=== PATIENT | female | born 1955 | race Caucasian/White ===

== ENCOUNTER 2020-11-25 09:25 | Outpatient (REF) | payer OTHER, SELFPAY ==
[2020-11-25 12:53] LABS: Alanine Aminotransferase 34 U/L (0-31); Albumin Level 4.1 g/dL (3.5-5.0); Alkaline Phosphatase 72 U/L (39-117); Anion Gap 13 (12-20); Aspartate Amino Transferase 32 U/L (5-31); Bilirubin Total 0.7 mg/dL (0.0-1.0); Blood Urea Nitrogen 12 mg/dL (9-16); Calcium 8.8 mg/dL (8.4-10.2); Carbon Dioxide 27 mmol/L (22-29); Chloride 105 mmol/L (96-108); Cholesterol 200 mg/dL; Estimated Glomerular Filt Rate > 60; Glucose Fasting 92 mg/dL (60-99); HDL Cholesterol 74 mg/dL; LDL Cholesterol Calculated 109 mg/dl; Sodium 141 mmol/L (135-145); Total Protein 6.8 g/dL (6.5-8.0); Triglycerides 86 mg/dL
[2020-11-25 13:20] LABS: Vitamin D 25-OH Total 25.5 ng/mL (>30)
== END 2020-11-25 09:26 | disposition home or self-care (01) ==
LOC: HO.HMGCLDS 09:25
PROVIDERS: PCP Internal Medicine; Visit Provider Internal Medicine
DX: I10 Essential (primary) hypertension (principal); E78.5 Hyperlipidemia, unspecified; M70.60 Trochanteric bursitis, unspecified hip
CPT/HCPCS: 36415; 80053; 80061; 82306

== ENCOUNTER 2021-01-27 08:46 | Outpatient (REF) | payer OTHER, SELFPAY ==
[2021-01-27 11:37] LABS: Alanine Aminotransferase 17 U/L (0-31); Albumin Level 4.3 g/dL (3.5-5.0); Alkaline Phosphatase 70 U/L (39-117); Anion Gap 11 (12-20); Aspartate Amino Transferase 18 U/L (5-31); Bilirubin Total 0.8 mg/dL (0.0-1.0); Blood Urea Nitrogen 12 mg/dL (9-16); Carbon Dioxide 28 mmol/L (22-29); Chloride 107 mmol/L (96-108); Cholesterol 235 mg/dL; Estimated Glomerular Filt Rate > 60; Glucose Fasting 91 mg/dL (60-99); HDL Cholesterol 75 mg/dL; LDL Cholesterol Calculated 136 mg/dl; Potassium 4.7 mmol/L (3.3-5.1); Sodium 141 mmol/L (135-145); Triglycerides 120 mg/dL
== END 2021-01-27 08:47 | disposition home or self-care (01) ==
LOC: HO.HMGCLDS 08:46
PROVIDERS: PCP Internal Medicine; Visit Provider Internal Medicine
DX: Z00.00 Encounter for general adult medical examination without abnormal findings (principal); E78.5 Hyperlipidemia, unspecified; I10 Essential (primary) hypertension
CPT/HCPCS: 36415; 80053; 80061

== ENCOUNTER 2021-08-04 08:44 | Outpatient (REF) | payer OTHER, SELFPAY ==
[2021-08-04 11:31] LABS: Hematocrit 45.1 % (37.0-47.0); Hemoglobin 14.9 g/dl (12.0-16.0); Mean Corpuscular Hemoglobin 30.1 pg (27.0-33.0); Mean Corpuscular Volume 91.1 fL (80.0-98.0); Platelet Count 169 X10*3/uL (160-400); Red Blood Count 4.95 X10*6/uL (4.20-5.50); Red Cell Distribution Width 12.5 % (11.0-16.0); White Blood Count 4.8 X10*3/uL (4.8-10.8)
[2021-08-04 11:57] LABS: Alanine Aminotransferase 25 U/L (0-31); Albumin Level 4.1 g/dL (3.5-5.0); Alkaline Phosphatase 73 U/L (39-117); Anion Gap 11 (12-20); Aspartate Amino Transferase 22 U/L (5-31); Bilirubin Total 0.5 mg/dL (0.0-1.0); Blood Urea Nitrogen 15 mg/dL (9-16); Calcium 9.4 mg/dL (8.4-10.2); Carbon Dioxide 27 mmol/L (22-29); Chloride 106 mmol/L (96-108); Cholesterol 234 mg/dL; Estimated Glomerular Filt Rate > 60; Glucose Fasting 97 mg/dL (60-99); HDL Cholesterol 78 mg/dL; LDL Cholesterol Calculated 138 mg/dl; Potassium 4.1 mmol/L (3.3-5.1); Sodium 140 mmol/L (135-145); Total Protein 7.2 g/dL (6.5-8.0); Triglycerides 92 mg/dL
[2021-08-04 12:32] LABS: TSH reflex Free T4 2.05 uIU/mL (0.32-4.0); Vitamin D 25-OH Total 21.7 ng/mL (>30)
== END 2021-08-04 08:45 | disposition home or self-care (01) ==
LOC: HO.HMGCLDS 08:44
PROVIDERS: PCP Internal Medicine; Visit Provider Internal Medicine
DX: Z00.00 Encounter for general adult medical examination without abnormal findings (principal); E78.5 Hyperlipidemia, unspecified; I10 Essential (primary) hypertension
CPT/HCPCS: 36415; 80053; 80061; 82306; 84443; 85027

== ENCOUNTER 2022-01-31 08:16 | Outpatient (REF) | payer OTHER, SELFPAY ==
[2022-01-31 11:37] LABS: Alanine Aminotransferase 20 U/L (0-31); Albumin Level 4.2 g/dL (3.5-5.0); Alkaline Phosphatase 67 U/L (39-117); Anion Gap 9 (12-20); Aspartate Amino Transferase 17 U/L (5-31); Bilirubin Total 0.4 mg/dL (0.0-1.0); Blood Urea Nitrogen 14 mg/dL (9-16); Carbon Dioxide 27 mmol/L (22-29); Chloride 109 mmol/L (96-108); Cholesterol 175 mg/dL; Estimated Glomerular Filt Rate > 60; Glucose Fasting 109 mg/dL (60-99); HDL Cholesterol 66 mg/dL; LDL Cholesterol Calculated 96 mg/dl; Potassium 4.1 mmol/L (3.3-5.1); Sodium 141 mmol/L (135-145); Total Protein 6.9 g/dL (6.5-8.0); Triglycerides 65 mg/dL
[2022-01-31 11:59] LABS: Vitamin D 25-OH Total 24.5 ng/mL (>30)
== END 2022-01-31 08:17 | disposition home or self-care (01) ==
LOC: HO.HMGCLDS 08:16
PROVIDERS: PCP Internal Medicine; Visit Provider Internal Medicine
DX: E55.9 Vitamin D deficiency, unspecified (principal); E78.5 Hyperlipidemia, unspecified
CPT/HCPCS: 36415; 80053; 80061; 82306

== ENCOUNTER 2022-04-14 07:42 | Outpatient (REF) | payer OTHER, SELFPAY ==
[2022-04-14 07:48] VITALS: BP 178/96; PULSE 91; RESP 16; TEMP 36.3; O2SAT 99
[2022-04-14 07:52] VITALS: BMI 29.6
--- NOTE | 2022-04-14 08:34 | W.PM.OPN ---
Operative Note Operative Note Date of Service: 04/14/22 Narrative: Preoperative diagnosis: Pilar cysts frontal scalp Postoperative diagnosis: Pilar cyst frontal scalp Procedure: Excision Pilar cyst frontal scalp Surgeon: Foster Arita MD Media Production Support Manager: SAMUEL Atkins Anesthesia: Local lidocaine 1% with epinephrine Indications for procedure: 1.5 cm Pilar cyst frontal scalp Operative findings: 1.5 cm Pilar cyst frontal scalp Specimen: Pilar cyst frontal scalp Estimated blood loss: Less than 1 mL Complications: None Procedure details: Patient brought to the minor surgery suite and placed in a sitting position. The site of surgery was confirmed by the patient in the frontal scalp. After assuring informed consent, the skin was prepped with Betadine and draped in a sterile fashion. Local anesthesia was then infiltrated over the cyst. Incision was made with a scalpel from anterior to posterior in carried down through subcutaneous tissue up to the cyst wall. Blunt dissection with a hemostat was then used to dissect the cyst from the surrounding subcutaneous tissue. The lesion was completely removed and sent to pathology for further examination. Light pressure was held to maintain hemostasis. Skin was then closed using interrupted 3-0 Prolene sutures x2. Bacitracin was applied. The patient tolerated the procedure well. She was discharged to home in stable condition.
== END 2022-04-14 07:43 | disposition home or self-care (01) ==
LOC: HO.MS 07:42
PROVIDERS: PCP Internal Medicine; Visit Provider Surgery
PROC: (CPT 11422; principal; 2022-04-14 08:00)
DX: L72.11 Pilar cyst (principal)
CPT/HCPCS: 11422; 88304

== ENCOUNTER 2022-05-25 11:07 | Outpatient (REF) | payer OTHER, SELFPAY ==
[2022-05-25 14:12] LABS: MANUAL DIFF FLAG NO
[2022-05-25 14:14] LABS: Basophils Percent Auto 0.3 % (0-2); Eosinophils Absolute Auto 0.2 X10*3/uL (0.0-0.4); Eosinophils Percent Auto 2.7 % (0-4); Hematocrit 47.4 % (37.0-47.0); Hemoglobin 15.3 g/dl (12.0-16.0); Imm Gran Abs Auto 0.03 X10*3/uL (0.00-0.03); Imm Gran Pct Auto 0.4 % (0.0-0.4); Lymphocytes Absolute Auto 2.1 X10*3/uL (1.2-4.9); Lymphocytes Percent Auto 29.4 % (20-40); Mean Corpuscular HGB Conc 32.3 g/dl (31.0-35.0); Mean Corpuscular Hemoglobin 29.4 pg (27.0-33.0); Mean Platelet Volume 11.3 fL (9.4-12.3); Monocytes Absolute Auto 0.6 X10*3/uL (0.1-1.2); Monocytes Percent Auto 8.2 % (2-11); Neutrophils Absolute Auto 4.2 x10*3/uL (2.0-8.3); Platelet Count 192 X10*3/uL (160-400); Red Blood Count 5.21 X10*6/uL (4.20-5.50); Red Cell Distribution Width 12.3 % (11.0-16.0); White Blood Count 7.1 X10*3/uL (4.8-10.8)
[2022-05-25 14:30] LABS: Alanine Aminotransferase 20 U/L (0-31); Albumin Level 4.4 g/dL (3.5-5.0); Alkaline Phosphatase 77 U/L (39-117); Anion Gap 12 (12-20); Aspartate Amino Transferase 21 U/L (5-31); Bilirubin Total 0.7 mg/dL (0.0-1.0); Blood Urea Nitrogen 12 mg/dL (9-16); Calcium 9.5 mg/dL (8.4-10.2); Carbon Dioxide 30 mmol/L (22-29); Chloride 103 mmol/L (96-108); Estimated Glomerular Filt Rate > 60; Glucose Fasting 84 mg/dL (60-99); Potassium 4.3 mmol/L (3.3-5.1); Sodium 141 mmol/L (135-145)
== END 2022-05-25 11:08 | disposition home or self-care (01) ==
LOC: HO.HMGCLDS 11:07
PROVIDERS: PCP Internal Medicine; Visit Provider Internal Medicine
DX: I10 Essential (primary) hypertension (principal)
CPT/HCPCS: 36415; 80053; 85025

== ENCOUNTER 2023-02-02 09:37 | Outpatient (AMB) | payer OTHER, SELFPAY ==
[2023-02-02 09:59] VITALS: BP 125/76; PULSE 80; O2SAT 97; BMI 29.5
--- NOTE | 2023-02-02 09:59 | A.OFFPC_ITS ---
Vital Signs 02/02/23 09:59 Height 5 ft 5 in Weight 177 lb BMI 29.5 BP 125/76 Blood Pressure Location Lt brachial Position Sitting Pulse 80 Pulse Source Pulse Oximeter Pulse Oximetry (%) 97 Oxygen Delivery Method Room Air Intake Visit Reasons: Annual PE Intake Note: Pt is here today for PE. Allergies No Known Allergies Allergy (Verified 02/02/23 10:09) Medication List - Last Reconciled 02/02/23 by Nilam Piper MD amlodipine 7.5 mg (1.5 x 5 mg) PO DAILY compr.stocking,knee,long,small As directed hydrochlorothiazide 25 mg PO DAILY naproxen 500 mg PO BID sertraline 25 mg PO DAILY Tobacco use date assessed: 02/02/23 Fall risk assessment: No Falls in past year Last assessed Fall Risk: 02/02/23 Dental Screening Dental Screen Date: 02/02/23 Did you have a dental visit in the last 12 months?: No Did you have a dental problem in the last 6 months where you did not have access to dental care?: No Was dental information given to patient?: Patient declined HPI Annual PE HPI Details Pt presents for PE. [facility] Medical History Annual physical exam HTN (hypertension) Hyperlipidemia Mammogram declined Pap smear of cervix declined Trochanteric bursitis Venous insufficiency Vitamin D deficiency Surgical History (Updated 02/02/23 @ 10:54 by Nilam Piper MD) H/O colonoscopy History of left oophorectomy History of removal of cyst (04/14/22) Family History Mother Stroke Father Hypertension Social History Housing: House Alcohol intake: never Patient Tobacco Use Status: Never used Tobacco e-Cigarette/Vaping Use: Never Used Second Hand Smoke Exposure: No service: No Current occupational status: employed 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 1. Little interest or pleasure in doing things: not at all 2. Feeling down, depressed, or hopeless: not at all 3. Trouble falling or staying asleep, or sleeping too much: not at all 4. Feeling tired or having little energy: not at all 5. Poor appetite or overeating: not at all 6. Feeling bad about yourself - or that you are a failure or have let yourself or your family down: not at all 7. Trouble concentrating on things, such as reading the newspaper or watching television: not at all 8. Moving or speaking so slowly that other people could have noticed. Or the opposite - being so fidgety or restless that you have been moving around a lot more than usual: not at all 9. Thoughts that you would be better off or of hurting yourself in some way: not at all Total score: 0 Depression Screening Interpretation: Negative Source: Developed by Drs. Adryan Rendon, Phyllis Jade, Naveen Diane and colleagues, with an educational sandy from [employer]. Thrive Questionnaire Date Thrive assessed: 02/02/23 I am a: Patient What is your living situation today?: I have a steady place to live Within the past 12 months, did the food you bought not last and you didn't have the money to get more?: Never true Within the past 12 months, did you worry whether your food would run out before you got money to buy more?: Never true Do you have trouble paying for medicines?: No Do you have trouble getting transportation to medical appointments?: No Do you have trouble paying your heating and electricity bill?: No Do you have trouble taking care of your child, family member or friend?: No Do you have trouble with day-to-day activities such as bathing, preparing meals, shopping, managing finances, etc.?: No Are you currently unemployed and looking for a job?: No Are you interested in more education?: No Please select the resources that you would like help with: None Currently or been in a relationship where the following occur: no concerns reported AUDIT C Alcohol Use Questionnaire (AUDIT-C) 1. How often do you have a drink containing alcohol?: Never 2. How many drinks containing alcohol do you have on a typical day when you are drinking?: 1 or 2 3. How often do you have six or more drinks on one occasion?: Never Total Score: 0 SUYAPA-7 AMB Questionnaire SUYAPA-7 Date SUYAPA - 7 assessed: 02/02/23 Feeling nervous, anxious, or on edge: 0 = Not at all Not being able to stop or control worryin = Not at all Worrying too much about different things: 0 = Not at all Trouble relaxin = Not at all Being so restless that it is hard to sit still: 0 = Not at all Becoming easily annoyed or irritable: 0 = Not at all Feeling afraid as if something awful might happen: 0 = Not at all Total SUYAPA-7 score (0-4 normal; 5-9 mild; 10-14 moderate; 15-21 severe): 0 Source: Developed by Drs. Adryan Rendon, Phyllis Jade, Naveen Diane and colleagues, with an educational sandy from [employer]. Review of Systems Const All systems reviewed & are unremarkable except as noted in HPI and below Reports no additional complaints Eyes Reports no additional complaints ENT Reports no additional complaints Card Reports no additional complaints Resp Reports no additional complaints GI Reports no additional complaints Reports no additional complaints Physical exam (Primary Care) Vital Signs: Last Vital Signs Pulse 80 02/02/23 09:59 BP 142/76 H 02/02/23 09:59 Pulse Ox 97 02/02/23 09:59 Oxygen Delivery Method Room Air 02/02/23 09:59 BMI result Body Mass Index 29.5 Tobacco/Smoking Status: Tobacco use Status Tobacco use date assessed 02/02/23 02/02/23 10:13 Patient Tobacco Use Status Never used Tobacco 02/02/23 10:13 e-Cigarette/Vaping Use Never Used 02/02/23 09:59 PHQ-9: PHQ-9 Score PHQ-9: Total score 0 02/02/23 10:13 Depression Screening Interpretation: Negative Thrive Assessment: Date of Thrive Assessment Date Thrive assessed 02/02/23 02/02/23 10:13 Currently or been in a relationship where the following occur: no concerns reported Const General: no acute distress HENMT Head: Yes normal to inspection Ears: hearing grossly normal bilaterally Face and sinus: Yes normal facial exam Throat: Yes posterior oropharynx normal Neck Neck: Yes no lymphadenopathy and Yes supple Resp Effort & Inspection: normal respiratory effort Auscultation: clear to auscultation bilaterally Cardio Rhythm: regular rhythm Heart sounds: S1 normal heart sound present and S2 normal heart sound present GI Inspection: Yes normal to inspection Palpation (GI): Soft to palpation Percussion: Yes normal to percussion Auscultation: normal bowel sounds Assessment and Plan Assessment & Plan (1) Hyperlipidemia: Comment: Patient refuses to take statin Code(s): E78.5 - Hyperlipidemia, unspecified Plan: cont low cholesterol diet (2) HTN (hypertension): Code(s): I10 - Essential (primary) hypertension Plan: cont meds (3) Mammogram declined: Code(s): Z53.20 - Procedure and treatment not carried out because of patient's decision for unspecified reasons (4) Anxiety: Code(s): F41.9 - Anxiety disorder, unspecified (5) Annual physical exam: Code(s): Z00.00 - Encounter for general adult medical examination without abnormal findings Plan: Well-balanced diet regular exercise discussed with the patient. She declined mammogram and Pap smear. Physical in 1 year (6) Pap smear of cervix declined: Code(s): Z53.20 - Procedure and treatment not carried out because of patient's decision for unspecified reasons (7) H/O colonoscopy: Comment: 2018 negative at [facility] Code(s): Z98.890 - Other specified postprocedural states Orders: Orders Comprehensive [place]. Panel Fast Today E78.5 - Hyperlipidemia, unspecified, I10 - Essential (primary) hypertension, Z53.20 - Procedure and treatment not carried out because of patient's decision for unspecified reasons Lipid Panel Today E78.5 - Hyperlipidemia, unspecified, I10 - Essential (primary) hypertension, Z53.20 - Procedure and treatment not carried out because of patient's decision for unspecified reasons TSH reflex Free T4 Today E78.5 - Hyperlipidemia, unspecified, I10 - Essential (primary) hypertension, Z53.20 - Procedure and treatment not carried out because of patient's decision for unspecified reasons Complete Blood Count Auto Diff Today E78.5 - Hyperlipidemia, unspecified, I10 - Essential (primary) hypertension, Z53.20 - Procedure and treatment not carried out because of patient's decision for unspecified reasons Coding Level of Care Code Est Pt Prev Care >65y(44230) Diagnoses Hyperlipidemia E78.5 HTN (hypertension) I10 Mammogram declined Z53.20 Anxiety F41.9 Annual physical exam Z00.00 Pap smear of cervix declined Z53.20 H/O colonoscopy Z98.890
== END 2023-02-02 10:56 | disposition home or self-care (01) ==
PROVIDERS: Visit Provider Internal Medicine
DX: Z00.00 Encounter for general adult medical examination without abnormal findings (principal); I10 Essential (primary) hypertension; F41.9 Anxiety disorder, unspecified; Z98.890 Other specified postprocedural states; E78.5 Hyperlipidemia, unspecified; Z53.20 Procedure and treatment not carried out because of patient's decision for unspecified reasons
CPT/HCPCS: 99397

== ENCOUNTER 2023-02-02 10:52 | Outpatient (REF) | payer OTHER, SELFPAY ==
[2023-02-02 13:22] LABS: MANUAL DIFF FLAG NO
[2023-02-02 13:55] LABS: Basophils Percent Auto 0.4 % (0-2); Eosinophils Absolute Auto 0.2 X10*3/uL (0.0-0.4); Eosinophils Percent Auto 2.9 % (0-4); Hematocrit 46.9 % (37.0-47.0); Hemoglobin 15.4 g/dl (12.0-16.0); Imm Gran Abs Auto 0.01 X10*3/uL (0.00-0.03); Imm Gran Pct Auto 0.2 % (0.0-0.4); Lymphocytes Absolute Auto 1.7 X10*3/uL (1.2-4.9); Lymphocytes Percent Auto 30.8 % (20-40); Mean Corpuscular HGB Conc 32.8 g/dl (31.0-35.0); Mean Corpuscular Volume 91.2 fL (80.0-98.0); Mean Platelet Volume 11.6 fL (9.4-12.3); Monocytes Absolute Auto 0.6 X10*3/uL (0.1-1.2); Monocytes Percent Auto 10.7 % (2-11); Platelet Count 179 X10*3/uL (160-400); Red Blood Count 5.14 X10*6/uL (4.20-5.50); Red Cell Distribution Width 12.8 % (11.0-16.0); White Blood Count 5.5 X10*3/uL (4.8-10.8)
[2023-02-02 14:14] LABS: Alanine Aminotransferase 22 U/L (0-31); Albumin Level 4.3 g/dL (3.5-5.0); Alkaline Phosphatase 67 U/L (39-117); Anion Gap 14 (12-20); Aspartate Amino Transferase 20 U/L (5-31); Bilirubin Total 0.6 mg/dL (0.0-1.0); Blood Urea Nitrogen 11 mg/dL (9-16); Calcium 9.2 mg/dL (8.4-10.2); Carbon Dioxide 24 mmol/L (22-29); Chloride 105 mmol/L (96-108); Cholesterol 244 mg/dL; Estimated Glomerular Filt Rate > 60; Glucose Fasting 84 mg/dL (60-99); HDL Cholesterol 79 mg/dL; LDL Cholesterol Calculated 137 mg/dl; Potassium 4.1 mmol/L (3.3-5.1); Sodium 139 mmol/L (135-145); Total Protein 7.5 g/dL (6.5-8.0); Triglycerides 144 mg/dL
[2023-02-02 14:31] LABS: TSH reflex Free T4 1.36 uIU/mL (0.32-4.0)
== END 2023-02-02 10:53 | disposition home or self-care (01) ==
LOC: HO.HMGCLDS 10:52
PROVIDERS: PCP Internal Medicine; Visit Provider Internal Medicine
DX: I10 Essential (primary) hypertension (principal); E78.5 Hyperlipidemia, unspecified
CPT/HCPCS: 36415; 80053; 80061; 84443; 85025

== ENCOUNTER 2023-04-27 09:00 | Outpatient (AMB) | payer OTHER, SELFPAY ==
--- NOTE | 2023-04-27 09:19 | AM.OFFWIN_ITS ---
Intake Vital Signs 04/27/23 09:20 Height 5 ft 5 in Weight 80.286 kg BMI 29.5 BP 130/80 Blood Pressure Location Lt brachial Position Sitting Pulse 78 Pulse Source Pulse Oximeter Temp 97.9 F Temp Source Temporal Artery Scan Pulse Oximetry (%) 98 Intake Visit Reasons: EP, Right knee swelling Intake Note: pt is here for c/o right leg swelling and pain denies injury Patient Tobacco Use Status: Never used Tobacco Allergies No Known Allergies Allergy (Verified 04/27/23 09:21) Do you need a note to return to daycare/school/sports/work: Yes HPI HPI Comments History of Present Illness Details This is a 67-year-old female history of hypertension, presenting to the clinic for evaluation of right knee pain and swelling for the past few months worsening. Patient reports it is worse with ambulation better at rest. She tells me her knee becomes swollen as the day goes by. Patient does not have a known history of arthritis. denies associated trauma. No history of blood clots. Denies numbness, tingling, fevers, chills. physical exam with tenderness to palpation to entire right knee anteriorly with overlying swelling worse in the lateral aspects of the knee. 2+ popliteal pulses equal bilateral. Normal sensation distally. Negative Jose bilaterally. likely inflammatory arthritis versus gout. Unlikely fracture, dislocation, threat to Limb, neurovascular compromise. No sings of arterial or venous occlusion Plan at this time x-ray. Will discharge home on naproxen, prednisone. Educated patient on diagnosis and treatment plan, answered all question, patient verbalizes understanding. At this time patient will be discharged home, advised to return with new or worsening symptoms. Educated on worrisome signs and symptoms and when to return. At this time I feel comfortable discharge home. 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[employer] Cognitive needs: No Hearing needs: No Vision needs: Yes Review of Systems Const Details: Constitutional : No Weight loss, No Fever, No Chills, No Fatigue, No Malaise ENT/Mouth : No sore throat, No Rhinorrhea Eyes: No Eye Pain, No Swelling, No Redness Cardiovascular : No Chest Pain, No SOB, No Dyspnea on Exertion, No Orthopnea, No Edema, No Palpitations Respiratory : No Cough, No Sputum, No Wheezing Gastrointestinal : No Nausea, No Vomiting, No Diarrhea, No Constipation, No abdominal Pain, No Hematochezia, No Melena Genitourinary : No Dysuria, No Urinary Frequency, No Hematuria, Musculoskeletal : + joint pain, No Myalgias, + Joint Swelling Skin : No Skin Lesions, No rash Neuro : No Weakness, No Numbness, No Dizziness, No Headache Psych : No Anxiety/Panic, No Depression All other systems reviewed and are negative All systems reviewed & are unremarkable except as noted in HPI and below Physical Exam Vital Signs: Last Vital Signs Temp 97.9 F 04/27/23 09:20 Pulse 78 04/27/23 09:20 BP 130/80 04/27/23 09:20 Pulse Ox 98 04/27/23 09:20 BMI result Body Mass Index 29.5 vss Appearance: Alert.? Oriented X3.? No acute distress.? Head: Normocephalic, atraumatic, no step-offs or deformities Eyes: Pupils equal, round and reactive to light.? CVS: Normal heart rate and rhythm.? Pulses normal.? Respiratory: No respiratory distress.? Breath sounds normal.? Abdomen: Soft and nontender.? Skin: Skin warm and dry.? Normal skin color.? Normal skin turgor.? Extremities: No lower extremity edema.? No calf ttp. 5/5 strength to bilateral upper and lower extremities. + tenderness to palpation to entire right knee anteriorly with overlying swelling worse in the lateral aspects of the knee. 2+ popliteal pulses equal bilateral. Normal sensation distally. Negative Jose bilaterally. Neuro: Oriented X 3.? No motor deficit.? No sensory deficit. CN 2-12 intact Assessment & Plan Assessment & Plan (1) Right knee pain: Code(s): M25.561 - Pain in right knee Plan Take your medications as prescribed. If you were prescribed antibiotics today, it is important that you take your medication to their entirety, do not skip any doses, do not finish them early. Follow-up with your primary care provider this week. Return to the emergency department with new or worsening symptoms. Such as fevers, chills, chest pain, shortness of breath, nausea, vomiting, dizziness, headache, vision changes, lethargy In case of emergency call 911 Medications: New prednisone 40 mg (2 x 20 mg) PO DAILY 5 days 10 tabs 0RF naproxen 500 mg PO BID PRN 14 tabs 0RF pain Coding Level of Care Code Est Pt Level 3 (77678) Diagnoses Right knee pain M25.561
[2023-04-27 09:20] VITALS: BP 130/80; PULSE 78; TEMP 36.6; O2SAT 98; BMI 29.5
== END 2023-04-27 09:42 | disposition home or self-care (01) ==
PROVIDERS: PCP Internal Medicine; Visit Provider Physician Assistant
DX: M25.561 Pain in right knee (principal)
CPT/HCPCS: 99213

== ENCOUNTER 2023-04-27 09:29 | Outpatient (REF) | payer OTHER, SELFPAY ==
--- NOTE | ~2023-04-27 | XR_ITS ---
EXAMINATION: XR KNEE, RIGHT CLINICAL INFORMATION: Pain. COMPARISON: None available. TECHNIQUE: Four views of the right knee. FINDINGS: No fracture or joint effusion. Alignment is anatomic. Joint spaces are maintained. No abnormal soft tissue calcification. XR/XR knee RT 4V IMPRESSION: Unremarkable right knee exam.
== END 2023-04-27 09:30 | disposition home or self-care (01) ==
LOC: HO.HMGCX 09:29
PROVIDERS: Visit Provider Physician Assistant
DX: M25.561 Pain in right knee (principal)
CPT/HCPCS: 73564

== ENCOUNTER 2023-09-14 11:09 | Outpatient (REF) | payer OTHER, SELFPAY ==
--- NOTE | ~2023-09-14 | MM_ITS ---
EXAMINATION: BONE DENSITOMETRY CLINICAL INDICATION: Asymptomatic menopausal state. COMPARISON: This is the patient's baseline examination. TECHNIQUE: Using a [employer] DXA System (software version: 13.1) manufactured by [employer], dual-energy x-ray absorptiometry was performed of the lumbar spine and left hip. The images are of good technical quality. Summary results are attached. FINDINGS: LEFT FEMUR, NECK: BMD 0.805 g/cm2, Z-score -0.4, T-score -1.7, osteopenia. LEFT FEMUR, TOTAL: BMD 0.915 g/cm2, Z-score 0.3, T-score -0.7, normal. AP SPINE L1-L4 (excluding L2 and L3): The data of L1-L4 has been changed to exclude the L2 and L3 vertebral bodies, because degenerative sclerosis at this level may cause overestimation of lumbar spine density. BMD 0.870 g/cm2, Z-score -1.2, T-score -2.5, osteoporosis. IDENTIFIED RISK FACTORS: Menopause. HISTORY OF FRACTURE: None listed. MEDICATIONS: None listed. MM/XR DEXA axial skeleton IMPRESSION: 1. DIAGNOSIS: Osteoporosis based on the lowest T-score value of -2.5 in the lumbar spine applying World Health Organization criteria. 2. 10-YEAR FRACTURE RISK PREDICTION, FRAX: According to the guidelines, FRAX calculation should only be performed on patients in the osteopenia bone density category. Therefore, FRAX was not performed on this patient. 3. Treatment Recommendations: NOF guidelines recommend consideration for treatment in postmenopausal women and men age 50 and older presenting with the following: -A hip or vertebral (clinical or morphometric) fracture. -T-score less than or equal to -2.5 at the femoral neck or spine after appropriate evaluation to exclude secondary causes. -Low bone mass at the hip or spine and a 10-year fracture probability by FRAX of greater than or equal to 3% for hip fracture or greater than or equal to 20% for major osteoporotic fracture based on the [place] adapted WHO algorithm. 4. Other Recommendations: All treatment decisions require clinical judgment and consideration of individual patient factors, including patient preferences, comorbidities, previous drug use, risk factors not captured in the FRAX model (e.g. frailty, falls, vitamin D deficiency, increased bone turnover, interval significant decline in bone density) and possible under or overestimation of fracture risk by FRAX. Additional medical evaluation for secondary cause of low bone mineral density may be appropriate. FUTURE SCAN RECOMMENDATION: People with diagnosed cases of osteoporosis or at high risk for fracture should have regular bone mineral density tests. For patients eligible for Medicare, routine testing is allowed once every 2 years. The testing frequency can be increased to one year for patients who have rapidly progressing disease, those who are receiving or discontinuing medical therapy to restore bone mass, or have additional risk factors.
== END 2023-09-14 11:10 | disposition home or self-care (01) ==
LOC: HO.MAMMO 11:09
PROVIDERS: PCP Internal Medicine; Visit Provider Internal Medicine
DX: Z13.820 Encounter for screening for osteoporosis (principal); Z78.0 Asymptomatic menopausal state
CPT/HCPCS: 77080

== ENCOUNTER 2024-02-06 09:36 | Outpatient (AMB) | payer OTHER, SELFPAY ==
[2024-02-06 09:38] VITALS: BP 124/80; PULSE 86; O2SAT 95
--- NOTE | 2024-02-06 09:38 | MHC.PC.OV ---
Vital Signs 02/06/24 09:38 Height 5 ft 5 in Weight 180 lb BMI 30.0 BP 124/80 Blood Pressure Location Rt brachial Position Sitting Pulse 86 Pulse Source Pulse Oximeter Pulse Oximetry (%) 95 Oxygen Delivery Method Room Air Intake Visit Reasons: Annual PE Intake Note: Pt is here today for PE. Allergies No Known Allergies Allergy (Verified 02/06/24 09:40) Medication List - Last Reconciled 02/06/24 by Nilam Piper MD amlodipine 7.5 mg (1.5 x 5 mg) PO DAILY compr.stocking,knee,long,small As directed hydrochlorothiazide 25 mg PO DAILY naproxen 500 mg PO BID pravastatin 20 mg PO DAILY sertraline 25 mg PO DAILY Tobacco use date assessed: 02/06/24 Fall risk assessment: No Falls in past year Last assessed Fall Risk: 02/06/24 Dental Screening Dental Screen Date: 02/06/24 Did you have a dental visit in the last 12 months?: Yes Did you have a dental problem in the last 6 months where you did not have access to dental care?: No Was dental information given to patient?: Patient has dentist HPI Annual PE HPI Details Patient presents for physical. She is going to visit her family in [facility] next month. 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 1. Little interest or pleasure in doing things: not at all 2. Feeling down, depressed, or hopeless: not at all 3. Trouble falling or staying asleep, or sleeping too much: not at all 4. Feeling tired or having little energy: several days 5. Poor appetite or overeating: not at all 6. Feeling bad about yourself - or that you are a failure or have let yourself or your family down: not at all 7. Trouble concentrating on things, such as reading the newspaper or watching television: not at all 8. Moving or speaking so slowly that other people could have noticed. Or the opposite - being so fidgety or restless that you have been moving around a lot more than usual: not at all 9. Thoughts that you would be better off or of hurting yourself in some way: not at all Total score: 1 Depression Screening Interpretation: Negative Depression Screening Done: Yes Source: Developed by Drs. Adryan Rendon, Phyllis Jade, Naveen Diane and colleagues, with an educational sandy from [employer]. Thrive Questionnaire Date Thrive assessed: 02/06/24 I am a: Patient What is your living situation today?: I have a steady place to live Within the past 12 months, did the food you bought not last and you didn't have the money to get more?: Never true Within the past 12 months, did you worry whether your food would run out before you got money to buy more?: Never true Do you have trouble paying for medicines?: No Do you have trouble getting transportation to medical appointments?: No Do you have trouble paying your heating and electricity bill?: No Do you have trouble taking care of your child, family member or friend?: No Do you have trouble with day-to-day activities such as bathing, preparing meals, shopping, managing finances, etc.?: No Are you currently unemployed and looking for a job?: No Are you interested in more education?: No Please select the resources that you would like help with: Housing/Group Home Currently or been in a relationship where the following occur: No concerns reported THRIVE Score: 0 AUDIT C Alcohol Use Questionnaire (AUDIT-C) 1. How often do you have a drink containing alcohol?: Never 3. How often do you have six or more drinks on one occasion?: Never Total Score: 0 SUYAPA-7 AMB Questionnaire SUYAPA-7 Date SUYAPA - 7 assessed: 02/06/24 Feeling nervous, anxious, or on edge: 0 = Not at all Not being able to stop or control worryin = Not at all Worrying too much about different things: 0 = Not at all Trouble relaxin = Not at all Being so restless that it is hard to sit still: 0 = Not at all Becoming easily annoyed or irritable: 0 = Not at all Feeling afraid as if something awful might happen: 0 = Not at all Total SUYAPA-7 score (0-4 normal; 5-9 mild; 10-14 moderate; 15-21 severe): 0 Source: Developed by Drs. Adryan Rendon, Phyllis Jade, Naveen Diane and colleagues, with an educational sandy from [employer]. Review of Systems Const All systems reviewed & are unremarkable except as noted in HPI and below Eyes Reports no additional complaints ENT Reports no additional complaints Card Reports no additional complaints Resp Reports no additional complaints GI Reports no additional complaints Reports no additional complaints Physical exam (Primary Care) Vital Signs: Last Vital Signs Pulse 86 02/06/24 09:38 BP 124/80 02/06/24 09:38 Pulse Ox 95 02/06/24 09:38 Oxygen Delivery Method Room Air 02/06/24 09:38 BMI result Body Mass Index 30.0 Tobacco/Smoking Status: Tobacco use Status Tobacco use date assessed 02/06/24 02/06/24 09:43 Patient Tobacco Use Status Never used Tobacco 02/06/24 09:43 e-Cigarette/Vaping Use Never Used 02/06/24 09:43 PHQ-9: PHQ-9 Score PHQ-9: Total score 1 02/06/24 09:50 Depression Screening Interpretation: Negative Thrive Assessment: Date of Thrive Assessment Date Thrive assessed 02/06/24 02/06/24 09:43 Currently or been in a relationship where the following occur: No concerns reported Const General: no acute distress HENMT Head: Yes normal to inspection Ears: hearing grossly normal bilaterally General nose exam: Normal external nose present Throat: Yes posterior oropharynx normal Eyes General: appearance normal, both eyes and all related structures Neck Neck: Yes supple Resp Effort & Inspection: normal respiratory effort Auscultation: clear to auscultation bilaterally Cardio Rhythm: regular rhythm Heart sounds: S1 normal heart sound present and S2 normal heart sound present GI Inspection: Yes normal to inspection Palpation (GI): Soft to palpation Percussion: Yes normal to percussion Auscultation: normal bowel sounds Assessment and Plan Assessment & Plan (1) Hyperlipidemia: Code(s): E78.5 - Hyperlipidemia, unspecified Plan: Continue low-cholesterol diet and pravastatin (2) HTN (hypertension): Code(s): I10 - Essential (primary) hypertension Plan: Continue amlodipine (3) Pap smear of cervix declined: Code(s): Z53.20 - Procedure and treatment not carried out because of patient's decision for unspecified reasons (4) Mammogram declined: Code(s): Z53.20 - Procedure and treatment not carried out because of patient's decision for unspecified reasons (5) Annual physical exam: Code(s): Z00.00 - Encounter for general adult medical examination without abnormal findings Plan: Well-balanced diet regular physical activity discussed with the patient she declined mammogram. Return for physical in 1 year or as needed Orders: Orders Comprehensive [place]. Panel Fast Today E78.5 - Hyperlipidemia, unspecified, I10 - Essential (primary) hypertension, Z00.00 - Encounter for general adult medical examination without abnormal findings, Z53.20 - Procedure and treatment not carried out because of patient's decision for unspecified reasons Vitamin D 25-OH Total Today E78.5 - Hyperlipidemia, unspecified, I10 - Essential (primary) hypertension, Z00.00 - Encounter for general adult medical examination without abnormal findings, Z53.20 - Procedure and treatment not carried out because of patient's decision for unspecified reasons TSH reflex Free T4 Today E78.5 - Hyperlipidemia, unspecified, I10 - Essential (primary) hypertension, Z00.00 - Encounter for general adult medical examination without abnormal findings, Z53.20 - Procedure and treatment not carried out because of patient's decision for unspecified reasons Comprehensive [place]. Panel Fast 1 Year E78.5 - Hyperlipidemia, unspecified, I10 - Essential (primary) hypertension, Z00.00 - Encounter for general adult medical examination without abnormal findings Lipid Panel 1 Year E78.5 - Hyperlipidemia, unspecified, I10 - Essential (primary) hypertension, Z00.00 - Encounter for general adult medical examination without abnormal findings Complete Blood Count Auto Diff 1 Year E78.5 - Hyperlipidemia, unspecified, I10 - Essential (primary) hypertension, Z00.00 - Encounter for general adult medical examination without abnormal findings Complete Blood Count Auto Diff Today E78.5 - Hyperlipidemia, unspecified, I10 - Essential (primary) hypertension, Z00.00 - Encounter for general adult medical examination without abnormal findings, Z53.20 - Procedure and treatment not carried out because of patient's decision for unspecified reasons Lipid Panel Today E78.5 - Hyperlipidemia, unspecified, I10 - Essential (primary) hypertension, Z00.00 - Encounter for general adult medical examination without abnormal findings, Z53.20 - Procedure and treatment not carried out because of patient's decision for unspecified reasons TSH reflex Free T4 1 Year E78.5 - Hyperlipidemia, unspecified, I10 - Essential (primary) hypertension, Z00.00 - Encounter for general adult medical examination without abnormal findings Medications: Refilled sertraline 25 mg PO DAILY 90 tabs 3RF Coding Level of Care Code Est Pt Prev Care >65y(90967) Diagnoses Hyperlipidemia E78.5 HTN (hypertension) I10 Pap smear of cervix declined Z53.20 Mammogram declined Z53.20 Annual physical exam Z00.00
== END 2024-02-06 10:44 | disposition home or self-care (01) ==
PROVIDERS: PCP Internal Medicine; Visit Provider Internal Medicine
DX: E78.5 Hyperlipidemia, unspecified (principal); I10 Essential (primary) hypertension; Z53.20 Procedure and treatment not carried out because of patient's decision for unspecified reasons; Z00.00 Encounter for general adult medical examination without abnormal findings
CPT/HCPCS: 99397

== ENCOUNTER 2024-02-06 09:57 | Outpatient (REF) | payer OTHER, SELFPAY ==
[2024-02-06 13:35] LABS: MANUAL DIFF FLAG NO
[2024-02-06 14:13] LABS: Basophils Percent Auto 0.3 % (0-2); Eosinophils Absolute Auto 0.2 X10*3/uL (0.0-0.4); Eosinophils Percent Auto 2.7 % (0-4); Hematocrit 42.3 % (37.0-47.0); Hemoglobin 14.4 g/dl (12.0-16.0); Imm Gran Abs Auto 0.01 X10*3/uL (0.00-0.03); Imm Gran Pct Auto 0.2 % (0.0-0.4); Lymphocytes Absolute Auto 1.5 X10*3/uL (1.2-4.9); Lymphocytes Percent Auto 24.8 % (20-40); Mean Corpuscular Hemoglobin 30.4 pg (27.0-33.0); Mean Corpuscular Volume 89.4 fL (80.0-98.0); Mean Platelet Volume 11.3 fL (9.4-12.3); Monocytes Absolute Auto 0.7 X10*3/uL (0.1-1.2); Monocytes Percent Auto 11.4 % (2-11); Neutrophils Absolute Auto 3.6 x10*3/uL (2.0-8.3); Neutrophils Percent Auto 60.6 % (45-73); Platelet Count 178 X10*3/uL (160-400); Red Blood Count 4.73 X10*6/uL (4.20-5.50); Red Cell Distribution Width 12.6 % (11.0-16.0); White Blood Count 5.9 X10*3/uL (4.8-10.8)
[2024-02-06 14:39] LABS: Alanine Aminotransferase 22 U/L (0-31); Albumin Level 4.4 g/dL (3.5-5.0); Alkaline Phosphatase 72 U/L (39-117); Anion Gap 10 (12-20); Aspartate Amino Transferase 24 U/L (5-31); Bilirubin Total 0.6 mg/dL (0.0-1.0); Blood Urea Nitrogen 15 mg/dL (9-16); Calcium 9.8 mg/dL (8.4-10.2); Carbon Dioxide 28 mmol/L (22-29); Chloride 108 mmol/L (96-108); Cholesterol 202 mg/dL (<200); Estimated Glomerular Filt Rate > 60; Glucose Fasting 91 mg/dL (60-99); HDL Cholesterol 79 mg/dL (>40); LDL Cholesterol Calculated 110 mg/dL (<100); Potassium 3.9 mmol/L (3.3-5.1); Sodium 142 mmol/L (135-145); Total Protein 7.4 g/dL (6.5-8.0); Triglycerides 68 mg/dL (<150)
[2024-02-06 14:41] LABS: TSH reflex Free T4 2.39 uIU/mL (0.32-4.0); Vitamin D 25-OH Total 31.6 ng/mL (>30)
== END 2024-02-06 09:58 | disposition home or self-care (01) ==
LOC: HO.HMGCLDS 09:57
PROVIDERS: PCP Internal Medicine; Visit Provider Internal Medicine
DX: Z00.00 Encounter for general adult medical examination without abnormal findings (principal); Z53.20 Procedure and treatment not carried out because of patient's decision for unspecified reasons; I10 Essential (primary) hypertension; E78.5 Hyperlipidemia, unspecified
CPT/HCPCS: 36415; 80053; 80061; 82306; 84443; 85025

== ENCOUNTER 2024-07-15 11:21 | Outpatient (AMB) | payer OTHER, SELFPAY ==
[2024-07-15 11:42] VITALS: BP 136/80; PULSE 85; O2SAT 95; BMI 29.6
--- NOTE | 2024-07-15 11:42 | A.OFFPC_ITS ---
Vital Signs 07/15/24 11:42 Height 5 ft 5 in Weight 178 lb BMI 29.6 BP 136/80 Blood Pressure Location Lt brachial Position Sitting Pulse 85 Pulse Source Pulse Oximeter Pulse Oximetry (%) 95 Oxygen Delivery Method Room Air Intake Visit Reasons: Follow up to discuss results Intake Note: Pt is here today for a follow up visit to discus EKG results. Allergies No Known Allergies Allergy (Verified 02/06/24 09:40) Medication List - Last Reconciled 07/15/24 by Nilam Piper MD amlodipine 7.5 mg (1.5 x 5 mg) PO DAILY compr.stocking,knee,long,small As directed hydrochlorothiazide 25 mg PO DAILY naproxen 500 mg PO BID sertraline 25 mg PO DAILY Tobacco use date assessed: 07/15/24 Fall risk assessment: No Falls in past year Last assessed Fall Risk: 07/15/24 Dental Screening Dental Screen Date: 07/15/24 Did you have a dental visit in the last 12 months?: Yes Did you have a dental problem in the last 6 months where you did not have access to dental care?: No Was dental information given to patient?: Patient has dentist HPI Follow up to discuss results HPI Details Patient presents for the follow-up. She is scheduled for hysterectomy and oophorectomy tomorrow for postmenopausal bleeding and a large uterus. She had a preop EKG which showed normal sinus rhythm, left axis deviation left arterial enlargement nonspecific T-wave changes in leads 3 AVF. Patient denies exertional chest pain or shortness or breath palpitations PND orthopnea. She has been noncompliant with medications including pravastatin and hydrochlorothiazide. Patient has been taking 5 mg of amlodipine instead of 7.5 mg. [facility] Medical History (Updated 07/15/24 @ 13:19 by Nilam Piper MD) Venous insufficiency Annual physical exam Trochanteric bursitis Mammogram declined Pap smear of cervix declined HTN (hypertension) Vitamin D deficiency Hyperlipidemia Surgical History History of removal of cyst (04/14/22) History of left oophorectomy H/O colonoscopy Family History Mother Stroke Father Hypertension Social History Housing: House Alcohol intake: never Patient Tobacco Use Status: Never used Tobacco e-Cigarette/Vaping Use: Never Used Second Hand Smoke Exposure: No service: No Current occupational status: employed 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 1. Little interest or pleasure in doing things: not at all 2. Feeling down, depressed, or hopeless: not at all 3. Trouble falling or staying asleep, or sleeping too much: not at all 4. Feeling tired or having little energy: not at all 5. Poor appetite or overeating: not at all 6. Feeling bad about yourself - or that you are a failure or have let yourself or your family down: not at all 7. Trouble concentrating on things, such as reading the newspaper or watching television: not at all 8. Moving or speaking so slowly that other people could have noticed. Or the opposite - being so fidgety or restless that you have been moving around a lot more than usual: not at all 9. Thoughts that you would be better off or of hurting yourself in some way: not at all Total score: 0 Depression Screening Interpretation: Negative Depression Screening Done: Yes 88785 - PHQ-9 Billing: Yes Source: Developed by Drs. Adryan Rendon, Phyllis Jade, Naveen Diane and colleagues, with an educational sandy from [employer]. Thrive Questionnaire Date Thrive assessed: 07/15/24 I am a: Patient What is your living situation today?: I have a steady place to live Within the past 12 months, did the food you bought not last and you didn't have the money to get more?: I choose not to answer this question Within the past 12 months, did you worry whether your food would run out before you got money to buy more?: I choose not to answer this question Do you have trouble paying for medicines?: I choose not to answer this question Do you have trouble getting transportation to medical appointments?: I choose no t to answer this question Do you have trouble paying your heating and electricity bill?: I choose not to answer this question Do you have trouble taking care of your child, family member or friend?: I choose not to answer this question Do you have trouble with day-to-day activities such as bathing, preparing meals, shopping, managing finances, etc.?: I choose not to answer this question Are you currently unemployed and looking for a job?: I choose not to answer this question Are you interested in more education?: I choose not to answer this question Please select the resources that you would like help with: None Currently or been in a relationship where the following occur: I choose not to answer THRIVE Score: 0 AUDIT C Alcohol Use Questionnaire (AUDIT-C) 1. How often do you have a drink containing alcohol?: Never 3. How often do you have six or more drinks on one occasion?: Never Total Score: 0 SUYAPA-7 AMB Questionnaire SUYAPA-7 Date SUYAPA - 7 assessed: 07/15/24 Feeling nervous, anxious, or on edge: 0 = Not at all Not being able to stop or control worryin = Not at all Worrying too much about different things: 0 = Not at all Trouble relaxin = Not at all Being so restless that it is hard to sit still: 0 = Not at all Becoming easily annoyed or irritable: 0 = Not at all Feeling afraid as if something awful might happen: 0 = Not at all Total SUYAPA-7 score (0-4 normal; 5-9 mild; 10-14 moderate; 15-21 severe): 0 Source: Developed by Drs. Adryan Rendon, Phyllis Jade, Naveen Diane and colleagues, with an educational sandy from [employer]. SUYAPA-7 Assessment Billing SUYAPA-7 Assessment Tool: SUYAPA-7 Assessment 97001 Review of Systems Const All systems reviewed & are unremarkable except as noted in HPI and below Eyes Reports no additional complaints ENT Reports no additional complaints Card Reports no additional complaints Resp Reports no additional complaints GI Reports no additional complaints Reports no additional complaints Physical exam (Primary Care) Vital Signs: Last Vital Signs Pulse 85 07/15/24 11:42 BP 136/80 07/15/24 11:42 Pulse Ox 95 07/15/24 11:42 Oxygen Delivery Method Room Air 07/15/24 11:42 BMI result Body Mass Index 29.6 Tobacco/Smoking Status: Tobacco use Status Tobacco use date assessed 07/15/24 07/15/24 11:47 Patient Tobacco Use Status Never used Tobacco 07/15/24 11:44 e-Cigarette/Vaping Use Never Used 07/15/24 11:44 PHQ-9: PHQ-9 Score PHQ-9: Total score 0 07/15/24 11:47 Depression Screening Interpretation: Negative Thrive Assessment: Date of Thrive Assessment Date Thrive assessed 07/15/24 07/15/24 11:47 Currently or been in a relationship where the following occur: I choose not to answer Const General: no acute distress HENMT Head: Yes normal to inspection Resp Effort & Inspection: normal respiratory effort Auscultation: clear to auscultation bilaterally Cardio Rhythm: regular rhythm Heart sounds: S1 normal heart sound present and S2 normal heart sound present GI Inspection: Yes normal to inspection Palpation (GI): Soft to palpation Coding Level of Care Code Est Pt Level 4 (61822) Diagnoses HTN (hypertension) I10 Abnormal EKG R94.31 Hyperlipidemia E78.5 Postmenopausal bleeding N95.0 Additional Codes SUYAPA-7 Assessment Billing - SUYAPA-7 Assessment Tool: SUYAPA-7 Assessment 55553 ([id number]) PHQ-9 - 45619 - PHQ-9 Billing: Yes ([id number]) Assessment & Plan Assessment & Plan (1) HTN (hypertension): Comment: Patient has stopped taking hydrochlorothiazide Code(s): I10 - Essential (primary) hypertension Category: Medical Plan: Continue amlodipine (2) Abnormal EKG: Comment: EKG NORMAL SINUS RHYTHM LEFT AXIS DEVIATION NONSPECIFIC T-WAVE CHANGES IN LEADS 3 AVF, no acute ST-T changes. 07/2024 Code(s): R94.31 - Abnormal electrocardiogram [ECG] [EKG] Category: Medical Plan: Obtain echocardiogram (3) Hyperlipidemia: Comment: PATIENT REFUSED TO TAKE MEDICATIONS Code(s): E78.5 - Hyperlipidemia, unspecified Category: Medical Plan: Patient refused to take statins (4) Postmenopausal bleeding: Comment: 07/2024 exploratory laparotomy, hysterectomy bilateral salpingo-oophorectomy by Dr.Kawar Allen Code(s): N95.0 - Postmenopausal bleeding Category: Medical Plan: scheduled for surgery 07/16 Orders: Orders CA echo transthoracic complete Today I10 - Essential (primary) hypertension, R94.31 - Abnormal electrocardiogram [ECG] [EKG] Medications: Changed From amlodipine 7.5 mg (1.5 x 5 mg) PO DAILY 135 tabs 3RF To amlodipine 5 mg PO DAILY 90 tabs 3RF Refilled sertraline 25 mg PO DAILY 90 tabs 3RF Discontinued hydrochlorothiazide Discontinued Reason: Doctor's Order 25 mg PO DAILY 90 tabs 3RF
--- OUTSIDE RECORDS SUMMARY | 2024-07-15 13:07 | XMS_ITS | Continuity of Care Document ---
Author Organization [facility] Address [address] [place] [address] [address] [place] [address] Phone Care Team Providers Care Duplicator Punch Operator Name Role Phone Joshua DIAZ FACS RVT Mayur SANTIAGO Unavailable Unavailable Allergies, Adverse Reactions, Alerts Substance Reaction Status Criticality No Known Allergies Active No Inform ation Medications Medication Instructions Dosage Effective Dates (start - stop) Status Comments ibuprofen 600 mg tablet take 1 tablet by oral route 3 times every day with food for Pain 600 MG - Active amlodipine 2.5 mg tablet - Active Procedures Procedure Date Office/Outpt E&M Established 15 Mins Sep Phleb Veins - Extrem - To 20 Duplex Scan-extrem Veins; Uni/ 23 Endovenous Laser, 1st Vein Endovenous laser vein addon Endovenous Laser, 1st Vein Endovenous laser vein addon Advance Directives Directive Yes / No Effective Date File Name No Information Encounters Encounter Description Practice Location Reason(s) For Visit Diagnoses Date Provider Providers Copied on Encounter Office/Outpt E&M Established 15 Mins [facility], [address] [place] [address] [address], [id number], [place] tel:[phone] [facility] Body mass index (BMI) 27.0-27.9, adultVenous insufficiency (chronic) (peripheral) 3 Joshua DIAZ FACS RVLien Rosas. [address] [address], [place], [address], [place]. [phone] Referring Provider: Nilam Piper MD S, [address] [place] [address], [place], [address]. 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 [address] [place] [address], [address], [place], [address], [place]. tel:[phone] Referring Provider: Nilam Piper MD S, [address] [place] [address], [place], [address]. tel:[phone] [facility], [address] [place] [address] [address], [id number], [place] tel:[phone] [facility] [place] Encntr for f/u exam aft trtmt for cond oth than malig neoplmVaricose veins of right lower extremities with pain 3 Joshua DIAZ FACS Lien Rosas. [address] [place] [address], [address], [place], [address], [place]. [phone] Referring Provider: Nilam Piper MD S, [address] [place] [address], [place], [address]. 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 [address] [place] [address], [address], [place], [address], [place]. [phone] Referring Provider: Nilam Piper MD S, [address] [place] [address], [place], [address]. 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 [address] [facility], [address], [place], [address], [place]. tel:[phone] Referring Provider: Nilam Piper MD S, [address] [place], [address]. tel:[phone] Family History Family Member Type Diagnosis Age At Onset No Information Payers Payer name Insurance type Covered democrat ID Jackson hyatt(s) [facility] [employer] [facility] CI [id number] Social History Type Description Quantity Date Captured Comments Alcohol Use Details Caffeine Use Details Unknown Tobacco Use Status Never smoked tobacco 2022 Smoking Status Never smoker Non-Smoking Tobacco Use Details : No Details Available : No Details Available Sex Female Vital Signs Date / Time: Height Weight BMI Pulse Rate Blood Pressure Temperature Respiratory Rate Body Surface Area Head Circumference Head Circ. Percentile [place]. Percentile BMI percentile Pulse Ox Inhaled Ox 9:09 AM 66.00 in 77.564 kg (171.00 lbs) 27.6 0 kg/m eter (2) 1.90 meter(2) Chief Complaint And Reason For Visit No Information Reason For Referral Reason For Referral No Information Plan Of Treatment Date Type Action Status Goal Diet education completed History Of Present Illness Encounter Date Complaint History Of Prese nt Illness No Information Functional Status Date Functional Assessmen t No Information Instructions Date Instruction Additional Infor mation Giving Encouragement to Exercise Related to Body mass index [BMI] 27.0-27.9, adult Diet education Related to Body mass index [BMI] 27.0-27.9, adult Patient education booklet given Related to Venous Insufficiency (Chronic / Peripheral) Assessments Type Assessment Date assessment Body mass index [BMI] 27.0-27.9, adult assessment Venous insufficiency (chronic) ( peripheral) Patient Care Teams Name Effective Dates (start - stop) Status Members No Information
== END 2024-07-15 13:20 | disposition home or self-care (01) ==
PROVIDERS: PCP Internal Medicine; Visit Provider Internal Medicine
DX: I10 Essential (primary) hypertension (principal); R94.31 Abnormal electrocardiogram [ECG] [EKG]; E78.5 Hyperlipidemia, unspecified; N95.0 Postmenopausal bleeding

== ENCOUNTER → 2024-07-15 11:21 | Outpatient (BNVA) | payer OTHER, SELFPAY | PROVIDERS: PCP Internal Medicine; Visit Provider Internal Medicine | DX: I10 Essential (primary) hypertension (principal); R94.31 Abnormal electrocardiogram [ECG] [EKG]; E78.5 Hyperlipidemia, unspecified; N95.0 Postmenopausal bleeding; Z79.899 Other long term (current) drug therapy | CPT/HCPCS: 96127 ==

== ENCOUNTER 2024-08-20 08:24 | Outpatient (REF) | payer OTHER, SELFPAY ==
--- OUTSIDE RECORDS SUMMARY | 2024-08-20 10:44 | XMS_ITS | Encounter Summary ---
Author Organization [facility] Address [address] [place] [address] Care Team Providers Care Collection Systems Modeler Name Role Phone Nilam Piper MD Primary Care Provider [phone] Reason for Referral * Consultation (Routine) - Authorized Specialty Diagnoses / Procedures Referred By Contac t Referred To Contact Hematology and Oncology Diagnoses Uterine mass Endometrial cancer (CMS/HCC) Roosevelt Ramirez MD [address] [place] [phone] Phone: tel: fax: [facility] Hematology Oncology [address] [place] [phone] Phone: tel: fax: Referral ID Status Reason Start Date Expiration Date Visits Requested Visits Authorized [id number] Authorized Specialty Services Required 08/02/2024 08/01/2025 6 6 * Consultation (Routine) - Pending Review Specialty Diagnoses / Procedures Referred By Contac t Referred To Contact Radiation Oncology Diagnoses Uterine mass Endometrial cancer (CMS/HCC) Roosevelt Ramirez MD [address] [place] [phone] Phone: tel: fax: [address] Phone: tel: Referral ID Status Reason Start Date Expiration Date Visits Requested Visits Authorized [id number] Pending Review Specialty Services Required 07/25/2024 07/25/2025 1 1 Reason for Visit * Reason Comments Post-op Encounter Details Date Type Department Care Team (Late st Contact Info) Description 07/25/2024 10:00 AM EST Office [facility] [address] [place] [phone] Roosevelt Ramirez MD [address] [place] [address] Endometrial cancer (CMS/HCC) (Primary Dx) Social History Tobacco Use Types Packs/Day Years Used Date Smoking Tobacco: Never Smokeless Tobacco: Never Alcohol Use Standard Drinks/Week Comments Never 0 (1 standard drink = 0.6 oz pur e alcohol) Interpersonal Safety Answer Date Record ed Physical Abuse 07/16/2024 Verbal Abuse 07/16/2024 Comments Unknown Sex and Gender Information Value Date Recorded Sex Assigned at Female 05/28/2024 9:58 AM EST Legal Sex Female 10:47 AM EST Gender Identity Female 05/28/2024 9:58 AM EST Sexual Orientation Straight 05/28/2024 9: 58 AM EST documented as of this encounter Last Filed Vital Signs Vital Sign Reading Time Taken Comments Blood Pressure 166/85 07/25/2024 10:23 AM EST Pulse 91 07/25/2024 10:23 AM EST Temperature 36.5 ??C (97.7 ??F) 07/25/2024 10:[address] Respiratory Rate - - Oxygen Saturation - - Inhaled Oxygen Concentration - - Weight - - Height - - Body Mass Index - - documented in this encounter Progress Notes * Roosevelt Ramirez MD - 07/25/2024 10:00 AM EST Reason for visit: Post-op appointment - Total abdominal hysterectomy, left salpingo-oophorectomy on07/16/2024. HPI: The patient presents for follow-up evaluation s/p the above procedure approximately 2 weeks ago. Juliet has been feeling very well. She has minimal pain. She denies vaginal bleeding or discharge. She is tolerating a regular diet without nausea or vomiting. Surgical sites are without swelling, redness, or drainage. Denies fevers, chills, sweats. Intraoperative findings: Uterus enlarged occupying the pelvis and somewhat fixed due to adhesions of the posterior surface of the uterus to the left pelvic sidewall and cul-de-sac. The uterine fundus was replaced with large mass consistent with intramural leiomyoma. The uterine serosal surfaces were normal. There were no peritoneal lesions. Right tube and ovary were surgically absent. Left ovary was small and atrophic. There was a left hydrosalpinx which was densely adherent to the pelvic sidewall. Pathology: Final Diagnosis Uterus, cervix, left ovary and fallopian tube: Serous carcinoma of the endometrium - Tumor invades into the outer half of the myometrium - Tumor invades the lower uterine segment - Tumor invades into the outer cervical stroma - Carcinoma involves leiomyomata and adenomyosis - p53 mutation pattern staining (null type) Calcified leiomyoma at lower uterine segment occluding the endometrial canal Adenomyoma, 5 cm, posterior Uterine artery embolization material with focal calcification - Found within the uterus and left broad ligament/adnexa Cervix with hyperkeratosis and chronic cervicitis Left ovarian serous adenofibroma, 5 mm Left ovarian fibroma, 5 mm Left ovary without atypia or malignancy Left fallopian tube without atypia or neoplasm at 1453 Special Stains In block A12, a small cellular spindle cell tumor is seen adjacent to a leiomyoma. To exclude the possibility of an endometrial stromal neoplasm, immunohistochemical staining was performed with appropriate controls. Smooth muscle actin: Diffuse expression Desmin: Diffuse expression CD10: Focal expression only Cyclin D1: No expression This supports a small cellular leiomyoma. Endometrial carcinoma: -Estrogen Receptor: Positive (30% Positive nuclei, average intensity: variable) Internal controls stained appropriately -Progesterone Receptor: Positive (5% Positive nuclei, average intensity: variable) Internal controls stained appropriately -HER2: Equivocal (2+) (10% of cells show strong complete membrane staining) -p53 expression: Abnormal, Null type -Napsin: Patchy, focal staining (tumor in this area is ER+; unlikely to represent clear cell carcinoma) - External controls stained appropriately Note: HER2-Adriana FISH will be performed and will be reported in a supplemental report. MLH1: Intact nuclear expression MSH2: Intact nuclear expression MSH6: Intact nuclear expression PMS2: Intact nuclear expression Background nonneoplastic tissue/internal control with intact nuclear expression IHC Interpretation for Mismatch Repair (MMR) Proteins: Mismatch repair protein proficient No loss of nuclear expression of MMR proteins: low probability of microsatellite instability-high (MSIH) Addendum This case was sent to [facility], [address] [place], [place], (CLIA #[id number]) for HER2 (Other) - with Breast Scoring studies. Their diagnosis is as follows: Results: Negative Interpretation: Average HER2 signals/nucleus: 3.6 Average OSMAN 17 signals/nucleus: 2.5 HER2/OSMAN 17 signal ratio: 1.4 Number of Observers: 1 Results show no evidence of HER2 amplification and a HER2/CEN17 ratio of <2.0 with an average HER2 copy number <4.0 signals per cell. This is a NEGATIVE result. Electronic Signature Stephen Love M.D. (Kay), Pathologist Report Date: 07/27/2024 04:09:26 PM ET (Full report on file) Addendum electronically signed by Itzel Ward MD on 07/29/2024 at 1100 Synoptic Checklist ENDOMETRIUM 8th Edition - Protocol posted: 06/21/2023ENDOMETRIUM - All Specimens SPECIMEN Procedure Simple hysterectomy Left salpingo-oophorectomy TUMOR Tumor Site Endometrium Tumor Size Greatest Dimension (Centimeters): 8 cm Histologic Type Serous carcinoma Myometrial Invasion Present Depth of Myometrial Invasion 18 mm Myometrial Thickness 20 mm Percentage of Myometrial Invasion 90 % Adenomyosis Present, involved by carcinoma Uterine Serosa Involvement Not identified Lower Uterine Segment Involvement Present, myoinvasive Cervical Stromal Involvement Present Depth of Cervical Stroma Invasion 7 mm Cervical Stroma Thickness 9 mm Other Tissue / Organ Involvement Not identified Peritoneal / Ascitic Fluid Not submitted / unknown Lymphatic and / or Vascular Invasion Present Focal (less than 5 vessel involvement) MARGINS Margin Status All margins negative for invasive carcinoma Closest Margin(s) to Invasive Carcinoma Parametrial / paracervical Distance from Invasive Carcinoma to Closest Margin 3 mm REGIONAL LYMPH NODES Regional Lymph Node Status Not applicable (no regional lymph nodes submitted or found) pTNM CLASSIFICATION (AJCC 8th Edition) Reporting of pT, pN, and (when applicable) pM categories is based on information available to the pathologist at the time the report is issued. As per the AJCC (Chapter 1, 8th Ed.) it is the managingphysician???s responsibility to establish the final pathologic stage based upon all pertinent information, including but potentially not limited to this pathology report. pT Category pT2 pN Category pN not assigned (no nodes submitted or found) FIGO STAGE FIGO Stage IICm (p53abn) FIGO Modified Classification [id number] HISTORY: Surgical history updated. No interval change in past medical history or social history. Active medication list reviewed. PHYSICAL EXAM: Visit Vitals BP (!) 166/85 Pulse 91 Temp 36.5 ??C (97.7 ??F) Smoking Status Never Awake, alert, and in no acute distress. Eyes are anicteric. Moist mucous membranes. Extremities are warm and well-perfused, without edema The abdomen is soft, nontender, nondistended. The incision is healing well, clean dry and intact; no erythema or drainage. LABS: No recent labs. IMAGING: No pertinent imaging. ................................................................................ ............................................................. ASSESSMENT & PLAN: 1. Endometrial cancer (CMS/HCC) Ambulatory referral to Radiation Oncology Ambulatory referral to Hematology / Oncology The patient is now s/p total abdominal hysterectomy, left salpingo-oophorectomy on 07/16/2024. She isrecovering from surgery appropriately. Activity precautions reviewed including nothing per vagina and no heavy lifting (>15 pounds) for 6 weeks following surgery. Surgical findings were discussed in detail with the patient and her son. Pathology revealed serous carcinoma of the endometrium, measuring 8 cm in greatest dimension. There was 90% myometrial invasion and lower uterine segment and cervical stroma invasion. There was focal lymphovascular invasion. The tumor is ER positive, MO positive, p53 abnormal, HER2/adriana 2+, FISH negative, MMR protein proficient. FIGO stage IICm (p53abn) (at least). The patient was not completely surgically staged since she did not have lymph node sampling or omental or peritoneal biopsies at the time of surgery (gross surgical findings suggested uterine leiomyoma, and the hysterectomy specimen was placed in formalin and was therefore not examined by intraoperative frozen section). Preoperative imaging showed no lymphadenopathy. There were numerous small pulmonary nodules appreciated on CT Chest, which were thought to be postinflammatory. Short interval follow-up CT in 6 months was recommended. I reviewed my recommendations for adjuvant therapy. The patient has an aggressive serous histology.There are multiple high risk uterine factors, and close parametrial margins. She did not have lymphnode sampling or omental and peritoneal biopsies. She is at high risk of having occult extrauterinedisease. I have therefore recommended adjuvant systemic therapy and whole pelvic radiation with vaginal brachytherapy. Chemotherapy recommendation is for carboplatin (AUC6) and paclitaxel (175mg/m2) every 21 days for 6cycles. She will be referred to Medical Oncology at [facility] for consultation and treatment. Referral placed to Radiation Oncology at [facility]. The patient will return in 3-4 weeks for postop evaluation and pelvic exam. It was a pleasure seeing Ms. Juliet Kruse at [facility] today. The patient has been instructed to call with any additional questions or concerns. Roosevelt Ramirez MD [facility] [address] [phone] CC: Nilam Sears documented in this encounter Plan of Treatment Upcoming Encounters Date Type Department Care Team (Late st Contact Info) Description 08/22/2024 2:40 PM EST Office Visit [facility] [address] [facility] [address] [place] [address] Roosevelt Ramirez MD [address] [place] [address] [address] [place] [address] 08/23/2024 8:00 AM EST Appointment [facility] Interventional Radiology [address] [place] [phone] 08/27/2024 8:00 AM EST Appointment [facility] [address] [phone] 09/10/2024 10:15 AM EST Office Visit [facility] Hematology Oncology [address] [place] [phone] Desiree Sears, DO [address] [place] [address] Scheduled Referrals Name Type Priority Associated Diagnoses Order Schedule Ambulatory referral to Radiation Oncology Outpatient Referral Routine Endometrial cancer (CMS/HCC) 1 Occurrences starting 07/25/2024 until 07/25/2025 Ambulatory referral to Hematology / Oncology Outpatient Referral Routine Endometrial cancer (CMS/HCC) 1 Occurrences starting 07/25/2024 until 07/25/2025 documented as of this encounter Visit Diagnoses Diagnosis Endometrial cancer (CMS/HCC)- Primary Malignant neoplasm of corpus uteri, except isthmus documented in this encounter Care Teams Collection Systems Modeler Relationship Specialty Start Date End Date Nilam Piper MD PCP - General Internal Medicine 05/27/24 documented as of this encounter
--- OUTSIDE RECORDS SUMMARY | 2024-08-20 10:44 | XMS_ITS | Encounter Summary ---
Author Organization [facility] Address [address] [place] [address] Care Team Providers Care Collection Card Clerk Name Role Phone Nilam Piper MD Primary Care Provider [phone] Reason for Referral * Imaging (Routine) - Authorized Specialty Diagnoses / Procedures Referred By Contac t Referred To Contact Radiology Diagnoses Endometrial cancer (CMS/HCC) Procedures IR Insert Tunneled CVAD w Subq Port More 5yrs Right Desiree Sears DO [address] [place] [address] Phone: tel: fax: [facility] Referral ID Status Reason Start Date Expiration Date V isits Requested Visits Authorized [id number] Authorized 08/05/2024 08/05/2025 1 1 Reason for Visit * Reason Comments Consult * Consultation (Routine) - Authorized Specialty Diagnoses / Procedures Referred By Contac t Referred To Contact Hematology and Oncology Diagnoses Uterine mass Endometrial cancer (CMS/HCC) Roosevelt Ramirez MD [address] [address] Phone: tel: fax: [facility] Hematology Oncology [address] [place] [address] Phone: tel: fax: Referral ID Status Reason Start Date Expiration Date Visits Requested Visits Authorized [id number] Authorized Specialty Services Required 08/02/2024 08/01/2025 6 6 Encounter Details Date Type Department Care Team (Late st Contact Info) Description 08/05/2024 3:00 PM EST Office Visit [facility] Hematology Oncology [address] [place] [id number] Desiree Sears DO [address] [place] [address] Uterine mass; Endometrial cancer (CMS/HCC) Social History Tobacco Use Types Packs/Day Years Used Date Smoking Tobacco: Never Smokeless Tobacco: Never Tobacco Cessation:Counseling Given: Not Answered Alcohol Use Standard Drinks/Week Comments Never 0 [...] Sign Reading Time Taken Comments Blood Pressure 169/73 08/05/2024 3:05 PM EST Pulse 91 08/05/2024 3:05 PM EST Temperature 37 ??C (98.6 ??F) 08/05/2024 3:05 PM EST Respiratory Rate - - Oxygen Saturation 96% 08/05/2024 3:05 PM EST Inhaled Oxygen Concentration - - Weight 78 kg (172 lb) 08/05/2024 3:05 PM EST Height 170.2 cm (5' 7 ) 08/05/2024 3:05 PM EST Body Mass Index 26.94 08/05/2024 3:05 PM EST documented in this encounter Progress Notes * Desiree Sears DO - 08/05/2024 3:00 PM EST Hematology/Oncology Consult Note Date of Consult: 08/05/2024 Patient's Primary Care Physician: Nilam Piper MD Subjective History of Present Illness 68 year old female presents for evaluation of uterine cancer She initially presented with two months of intermittent vaginal bleeding in March 2024. She hada pelvic US on 05/09/24 which showed a large complex mass in the mid pelvis . She underwent endometrial biopsy in 06/05/24 which showed rare atypical glandular cells. Subsequently she underwent total abdominal hysterectomy and left salpingo- oophorectomy. 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 The patient currently feels well overall. She has no symptoms at all. Past Medical History Past Medical History: Diagnosis Date Anxiety Dysphagia SPASMS IN THROAT OCCASIONALLY Endometriosis History of endometriosis History of left oophorectomy Hypertension Past Surgical History Past Surgical History: Procedure Laterality Date LEFT OOPHORECTOMY Left History of left oophorectomy at ~age 38 for endometriosis. Family History Family History Problem Relation Name Age of Onset No Known Problems Mother No Known Problems Father Breast cancer Other 76 Maternal Aunt Ovarian cancer Neg Hx Personal and Social History Social History Tobacco Use Smoking Status Never Smokeless Tobacco Never Social History Substance and Sexual Activity Alcohol Use Never Social History Substance and Sexual Activity Drug Use Never REVIEW OF SYSTEMS: Constitutional: see above Respiratory: No cough, shortness of breath Cardiac: No chest pain, palpitations GI: No nausea, vomiting, diarrhea, constipation, abdominal pain : No urinary complaints Skin: No rashes or ease of bruising Neuro: No headaches, dizziness, focal weakness, paresthesias Musculoskeletal: No bone pain, no joint pain. Hem/Lymph : No palpable lymph nodes, no bleeding or easy bruising Objective Medications Current Outpatient Medications: amLODIPine (NORVASC) 5 mg tablet, Take 1.5 tablets (7.5 mg total) by mouth 1 (one) time each day., Disp: , Rfl: enoxaparin (LOVENOX) 40 mg/0.4 mL syringe, Inject 0.4 mL (40 mg total) under the skin 1 (one) time each day at the same time for 28 days., Disp: 28 each, Rfl: 0 Allergies No Known Allergies Physical Exam Vitals: 08/05/24 1505 BP: (!) 169/73 BP Location: Left arm Patient Position: Sitting BP Cuff Size: Small adult Pulse: 91 Temp: 37 ??C (98.6 ??F) TempSrc: Temporal SpO2: 96% Weight: 78 kg (172 lb) Height: 1.702 m (67 ) General: well appearing, in no acute distress HENT: no scleral icterus Lymph: No palpable cervical, supraclavicular or axillary adenopathy. Resp: normal inspiratory effort, Cardio: RRR, Abdomen: soft non tender, non distended, well healing abdominal scars. Neuro: alert and oriented, normal speech Imaging CT Abdomen Pelvis w Contrast 06/20/24 FINDINGS: LUNG: No abnormality of the trachea or mainstem bronchi. There are multiple small scattered bilateral nodules in each lung. There are some areas of pleural and/or parenchymal disease in the apices the largest in the left apex. These could be postinflammatory. At least one of the small nodules is calcified. The pattern is nonspecific but could be related to previous granulomatous disease. There are small areas of fibrosis adjacent to some lower right-sided osteophytes. MEDIASTINUM: Top normal left hilar lymph nodes. No enlarged mediastinal lymph nodes. No suspicious abnormality of the esophagus. CARDIAC: The heart is not enlarged. No pericardial fluid or thickening CORONARY CALCIFICATION: Mild coronary calcification VASCULAR: There is no thoracic aortic aneurysm. The main pulmonary artery is normal caliber PLEURAL: There is no pleural fluid or pneumothorax AXILLA/CHEST WALL: There are no enlarged axillary lymph nodes. No suspicious chest wall mass demonstrated. There is a subcutaneous low attenuating mass near the left axilla which could represent a sebaceouscyst (22/255). LIVER: There are 2 peripheral low attenuating lesions in the posterior dome of hepatic segment 7. These were present 12/02/2017 and have been evaluated with MRI. No suspicious interval change. There is a probable cyst in the central aspect of the liver below the portal bifurcation which is unchanged and some and does not require any specific imaging follow-up. The lesion which likely represents hemangioma in the periphery of hepatic segment 6 is associated with some capsular retraction. The interval decrease in size is reassuring. There is a 1.4 cm hyperdense mass in the posterior lower aspect of the right lobe of the liver (142/255). This was present on MRI 12/25/2017. Diagnostic possibilities include focal nodular hyperplasia, flash filling hemangioma or even adenoma. The long-term stability is reassuring. BILIARY TRACT: The gallbladder is distended. No opaque gallstone, gallbladder wall thickening or biliary dilation SPLEEN: The spleen is not enlarged. No suspicious abnormality. PANCREAS: No suspicious abnormality. ADRENAL GLANDS: Within normal limits KIDNEYS: There is no significant dilation of the intrarenal collecting system on either side. Then nephrograms are symmetric. There are circumscribed low attenuating masses consistent with cysts. No suspicious renal mass on either side. GASTROINTESTINAL TRACT: No localized colonic wall thickening. The appendix is normal. There is contrast present within small bowel loops and the proximal and mid colon. No suspicious abnormality of the stomach. URINARY BLADDER: The bladder is not well distended. No large abnormality. PELVIC VISCERA: Abnormal. The uterus is in neutral position. There is no convincing abnormality in the lower two thirds of the vagina. The uterus is enlarged and heterogeneous. The uterus measures approximately 10.4 x 6.1 x 9.8 cm. On 12/02/2017 the uterus measured approximately 10.9 x 6.0 x 7.6 cm. There are numerous peripheral calcifications. There is a suggestion of some distention of the endometrial cavity which could be as much as 2.5 cm. There is a tubular low attenuating structure in the left adnexa which appears similar to previous. A discrete right ovary is not deathly identified. ABDOMINAL WALL: No significant hernia is appreciated. Small amount of fat protrudes through the umbilicus. LYMPHOVASCULAR STRUCTURES AND FLUID: There is no abdominal aortic aneurysm. The portal vein enhances. There are no measurably enlarged lymph nodes. There is no significant free intraperitoneal fluid. A circumscribed oval low attenuating structure adjacent to the sigmoid posteriorly in the deep left pelvis is of uncertain etiology or significance(210/255). MUSCULOSKELETAL: Enlargement of the sacral neural foramina are unchanged and likely related to perineural cysts. Impression Enlarged heterogeneous uterus with multiple calcifications. I suspect thickening of the endometrium or fluid within the endometrial cavity. Endometrial sampling should be considered. Although the ovaries are not optimally evaluated I favor an endometrial/uterine process. There are numerous small pulmonary nodules which could be postinflammatory. Short interval follow-up CT in 6 months recommended. Multiple stable liver lesions do not require specific imaging follow-up. -------- FINAL REPORT -------- Dictated By: Pepe Mosley Dictated Date: 06/21/2024 13:06 ET Assigned Physician: Pepe Mosley Reviewed and Electronically Signed By: Pepe Mosley Signed Date: 06/21/2024 13:47 ET Workstation ID: [id number] Transcribed By: Self Edit Transcribed Date: 06/21/2024 13:06 ET Labs Lab Results Component Value Date WBC 8.1 07/17/2024 HGB 11.2 (L) 07/17/2024 HCT 36.3 07/17/2024 MCV 90.8 07/17/2024 PLT 171 07/17/2024 Lab Results Component Value Date GLUCOSE 115 (H) 07/17/2024 CALCIUM 8.2 (L) 07/17/2024 NA 138 07/17/2024 K 3.9 07/17/2024 CO2 28 07/17/2024 CL 105 07/17/2024 BUN 12 07/17/2024 CREATININE 0.61 07/17/2024 Pathology ENDOMETRIUM 07/16/2024 8th Edition - Protocol posted: 06/21/2023ENDOMETRIUM - [...] FIGO Stage IICm (p53abn) FIGO Modified Classification [id number] . Assessment & Plan 68 year old female presents for evaluation of uterine cancer. The patient presented with post menopausal bleeding. She was found to have a serous carcinoma of the uterus. She has undergone hysterectomy. Based on imaging there is no adenopathy or distant disease. Reviewed with patient the pathology and imaging in details as well as NCCN guidelines in regards touterine cancer. Serous carcinoma of the uterus, at least stage IIIC Discussed recommendation from the team to proceed with adjuvant chemotherapy and radiation therapy Chemotherapy regimen consists of carboplatin and paclitaxel every 21 days for a total of six cycles Discussed in detail with the patient the potential side effects of treatment regimen. This is including but not limited to: nausea, vomiting, fatigue, bone marrow suppression, febrile neutropenia, infection, bleeding, diarrhea, constipation, neuropathy, infusion reaction, rash, kidney liver or lungtoxicity, alopecia, mucositis. The patient consents to proceed. Orders placed for IR port placement Recommend also for referral to radiation oncology, this will be placed by Dr Ramirez Return in 3-4 weeks prior to second cycle of chemotherapy Recommend also evaluation for Amb[facility] genetic testing Pulmonary nodules Radiology recommends 6 mo follow up , defer to PCP Sign: Che Sears DO Hematology/Oncology [facility] [phone] documented in this encounter Plan of Treatment Upcoming Encounters Date Type Department Care Team (Late st Contact Info) Description 08/22/2024 2:40 PM EST Office Visit [facility] [address] [facility] [address] [place] [address] Roosevelt Ramirez MD [address] [facility] [address] [address] [place] [address] 08/23/2024 8:00 AM EST Appointment [facility] Interventional Radiology [address] [place] [address] 08/27/2024 8:00 AM EST Appointment [facility] Infusion Center [address] 2[address] [place] [address] 09/10/2024 10:15 AM EST Office Visit [facility] Hematology Oncology [address] [place] [phone] Desiree Sears DO [address] [place] [address] Scheduled Orders Name Type Priority Associated Diagnoses Orde r Schedule IR Insert Tunneled CVAD w Subq Port More 5yrs Right Imaging Routine Endometrial cancer (CMS/HCC) Expected: 08/05/2024, Expires: 08/05/2025 documented as of this encounter Visit Diagnoses Diagnosis Uterine mass Other specified symptom associated with female genital organs Endometrial cancer (CMS/HCC) Malignant neoplasm of corpus uteri, except isthmus documented in this encounter Discontinued Medications Medication Sig Discontinue Reason Start Date End Da te hydroCHLOROthiazide (HYDRODIURIL) 25 mg tablet Take 1 tablet (25 mg total) by mouth 1 (one) time each day. 07/11/2024 08/05/2024 pravastatin (PRAVACHOL) 20 mg tablet Take 1 tablet (20 mg total) by mouth 1 (one) time each day. 07/11/2024 08/05/2024 acetaminophen (TYLENOL) 500 mg tablet Take 2 tablets (1,000 mg total) by mouth every 8 (eight) hours. 07/18/2024 08/05/2024 ibuprofen (ADVIL,MOTRIN) 600 mg tablet Take 1 tablet (600 mg total) by mouth every 8 (eight) hours if needed for mild pain. 07/18/2024 08/05/2024 oxyCODONE (ROXICODONE) 5 mg immediate release tablet Take 1 tablet (5 mg total) by mouth every 6 (six) hours if needed for severe pain. Max Daily Amount: 20 mg 07/18/2024 08/05/2024 documented as of this encounter Orders Outpatient Referral Count Last Ordered Date Fir st Ordered Date AMB REFERRAL TO HEMATOLOGY / ONCOLOGY 1 documented in this encounter Care Teams Collection Card Clerk Relationship Specialty Start Date End Date Nilam Piper MD PCP - General Internal Medicine 05/27/24 documented as of this encounter
--- OUTSIDE RECORDS SUMMARY | 2024-08-20 10:44 | XMS_ITS ---
Author Organization [facility] Address [address] [place] [address] Phone Care Team Providers Care Bindery Machine Setter/Set Up Operator Name Role Phone Nilam Piper MD Primary Care Provider [phone] Active Problems Problem Noted Date Diagnosed Date Endometrial cancer 08/05/2024 Cancer Staging:Pathologic:FIGO Stage IIC, calculated as Stage Unknown(pT2, pNX, cM0) - Unsigned PMB (postmenopausal bleeding) 05/23/2024 Pelvic mass 05/23/2024 Current Oncology Plans PACLitaxel / CARBOplatin - Uterine Cancer* Plan Start Date:08/18/2024 Plan Provider:Desiree Sears DO Linked Problems Endometrial cancer ([facility]) Treatment Medications Current Day (Day 1 , Prescription - Planned for 08/18/2024) Next Day (Day 1, Cycle 1 - Planned for 08/19/2024) CARBOplatin (PARAPLATIN)PACLitaxel (TAXOL) No medications scheduled. CARBOplatin (PARAPLATIN) in sodium chloride 250 mL chemo IVPBPACLitaxel (TAXOL) 330 mg in sodium chloride (non-PVC) 555 mL chemo IVPB Past Plans No past plan information found. Radiation Treatments * No radiation treatments are documented for this patient in [facility]. Treatments may have been administered in another system. Resolved Problems Problem Noted Date Diagnosed Date Resolved Date Mass of uterus determined by ultrasound 06/04/2024 08/11/2024 Language barrier 05/23/2024 08/11/2024
--- OUTSIDE RECORDS SUMMARY | 2024-08-20 10:44 | XMS_ITS | Clinical Summary ---
Author Organization [facility] Address [address] [place] [address] Phone Care Team Providers Care Fitness And Wellness Manager Name Role Phone Nilam Piper MD Primary Care Provider [phone] Allergies No known active allergies Medications amLODIPine (NORVASC) 5 mg tablet Take 1.5 tablets (7.5 mg total) by mouth 1 (one) time each day. 4 Active hydroCHLOROthi azide (HYDRODIURIL) 25 mg tablet Take 1 tablet (25 mg total) by mouth 1 (one) time each day. 5 08/05/19 25 Discontinued pravastatin (PRAVACHOL) 20 mg tablet Take 1 tablet (20 mg total) by mouth 1 (one) time each day. 5 08/05/19 25 Discontinued acetaminophen (TYLENOL) 500 mg tablet Take 2 tablets (1,000 mg total) by mouth every 8 (eight) hours. 30 tablet 5 08/05/19 25 Discontinued ibuprofen (ADVIL,MOTRIN) 600 mg tablet Take 1 tablet (600 mg total) by mouth every 8 (eight) hours if needed for mild pain. 21 tablet 5 08/05/19 25 Discontinued docusate sodium (COLACE) 100 mg capsule Take 1 capsule (100 mg total) by mouth 2 (two) times a day for 10 days. 20 each 5 07/28/19 25 oxyCODONE (ROXICODONE) 5 mg immediate release tablet Take 1 tablet (5 mg total) by mouth every 6 (six) hours if needed for severe pain. Max Daily Amount: 20 mg 15 tablet 5 08/05/19 25 Discontinued enoxaparin (LOVENOX) 40 mg/0.4 mL syringe Inject 0.4 mL (40 mg total) under the skin 1 (one) time each day at the same time for 28 days. 28 each 5 08/15/19 25 Active Problems Problem Noted Date Diagnosed Date Endometrial cancer 08/05/2024 Cancer Staging:Pathologic:FIGO Stage IIC, calculated as Stage Unknown(pT2, pNX, cM0) - Unsigned PMB (postmenopausal bleeding) 05/23/2024 Pelvic mass 05/23/2024 Resolved Problems Problem Noted Date Diagnosed Date Resolved Date Mass of uterus determined by ultrasound 06/04/2024 08/11/2024 Language barrier 05/23/2024 08/11/2024 Encounters Date Type Department Care Team Description 08/05/2024 3:00 PM EST Office Visit [facility] Hematology Oncology [address] [place] [phone] Desiree Sears DO Uterine mass; Endometrial cancer ([facility]/HCC) 07/25/2024 10:00 AM EST Office Visit [address] [phone] Roosevelt Ramirez MD Endometrial cancer ([facility]/HCC) (Primary Dx) 07/25/2024 Telephone [facility] Hematology Oncology [address] [place] [phone] Nilam Piper MD [facility] 07/16/2024 10:48 AM EST Anesthesia Event [address] [phone] Joanie Urena MD 07/16/2024 10:15 AM EST - 07/16/2024 1:45 PM EST Surgery [address] [phone] Roosevelt Ramirez MD Exploratory laparotomy, removal of pelvic mass, total abdominal hysterectomy, left salpingo-oophorectom y [43019 (CPT??)] 07/16/2024 8:33 AM EST - 07/18/2024 1:07 PM EST Hospital Encounter [facility] Medical Surgical Unit [address] [place] [phone] Roosevelt Ramirez MD Mass of uterus determined by ultrasound; PMB (postmenopausal bleeding) Discharge Disposition: Home or Self Care 06/27/2024 1:40 PM EST Office Visit [address] [phone] Roosevelt Ramirez MD Uterine mass (Primary Dx); Language barrier; PMB (postmenopausal bleeding); Transfusion of blood product refused for islam reason 06/20/2024 3:45 PM EST - 06/20/2024 11:59 PM EST Hospital Encounter [facility] CT Scan [address] [place] [phone] Mass of uterus determined by ultrasound Discharge Disposition: Home or Self Care 06/20/2024 3:29 PM EST - 06/20/2024 11:59 PM EST Hospital Encounter [facility] CT Scan [address] [place] [phone] Pelvic mass Discharge Disposition: Home or Self Care 06/12/2024 Telephone Obstetrics & [address] [phone] Tenisha Llanos CNM prior authorization 06/04/2024 1:20 PM EST Consult [address] [phone] Roosevelt Ramirez MD Pelvic mass (Primary Dx); PMB (postmenopausal bleeding); Language barrier 05/27/2024 Telephone Obstetrics & [address] [phone] Tenisha Llanos CNM 05/21/2024 Telephone Obstetrics & Gynecology [address] [phone] Tenisha Llanos CNM Results from Last 3 Months Surgical History Surgery Date Site/Laterality Comments RIGHT OOPHORECTOMY Right History of right oophorectomy at ~age 38 for endometriosis. TOTAL ABDOMINAL HYSTERECTOMY 07/16/2024 Total abdominal hysterectomy, left salpingo-oophorectomy Medical History Medical History Date Comments Hypertension History of endometriosis History of left oophorectomy Dysphagia SPASMS IN THROAT OCCASIONALLY Anxiety Endometriosis Family History Medical History Relation Name Comments No Known Problems Father No Known Problems Mother Breast cancer Other Maternal Aunt Ovarian cancer Neg Hx Relation Name Status Comments Father Mother Other Social History Tobacco Use Types Packs/Day Years [...] Orientation Straight 05/28/2024 9: 58 AM EST Obstetrics History Last Filed Vital Signs Vital Sign Reading Time Taken Comments Blood Pressure 169/73 08/05/2024 3:05 PM EST Pulse 91 08/05/2024 3:05 PM EST Temperature 37 ??C (98.6 ??F) 08/05/2024 3:05 PM EST Respiratory Rate 12 07/18/2024 7:51 AM EST Oxygen Saturation 96% 08/05/2024 3:05 PM EST Inhaled Oxygen Concentration - - Weight 78 kg (172 lb) 08/05/2024 3:05 PM EST Height 170.2 cm (5' 7 ) 08/05/2024 3:05 PM EST Body Mass Index 26.94 08/05/2024 3:05 PM EST Plan of Treatment Upcoming Encounters Date Type Department Care Team (Late st Contact Info) Description 08/22/2024 2:40 PM EST Office Visit [facility] [address] [place] [phone] Roosevelt Ramirez MD [address] [place] [address] 08/23/2024 8:00 AM EST Appointment [facility] Interventional Radiology [address] [place] [phone] 08/27/2024 8:00 AM EST Appointment [facility] Infusion Center [address] [phone] 09/10/2024 10:15 AM EST Office Visit [facility] Hematology Oncology [address] [place] [phone] Desiree Sears, DO [address] [place] [address] Health Maintenance Due Date Last Done Comments Breast Cancer Screening 1955 DTaP,Tdap,and Td Vaccines (1 - Tdap) 10/23/1963 Hepatitis A Vaccines (1 of 2 - Risk 2-dose series) 10/23/1975 Pneumococcal Vaccine: 50+ Years (1 of 2 - PCV) 10/23/1975 Zoster Vaccines (1 of 2) 10/23/1975 Hepatitis B Vaccines (1 of 3 - Risk 3-dose series) 2016 RSV Immunization Patients 60 + Years Old (1 - Risk 60-74 years 1-dose series) 2016 Colorectal Cancer Screening: Colonoscopy 06/13/2022 Depression Screening 06/13/2022 Hepatitis C Screening 06/13/2022 Osteoporosis Screening (Bone Density Screening) 06/13/2022 Social Influencers of Health Screening 06/13/2022 Cholesterol Screening (Lipid Panel) 09/15/2023 09/14/2018, 09/14/2018, 11/10/2017 COVID-19 Vaccine (2023-2 5 season) 2024 07/21/2021, 11/23/2020, 11/02/2020 Influenza Vaccine (#1) 2024 Hypertension/CHF/CAD Annual BMP Blood Test 07/17/2025 07/17/2024, 06/04/2024, 09/14/2018 Falls Risk Assessment 07/18/2025 07/18/2024 HIB Vaccines Aged Out No longer eligi ble based on patient's age to complete this topic HPV Vaccines Aged Out No longer eligi ble based on patient's age to complete this topic IPV Vaccines Aged Out No longer eligi ble based on patient's age to complete this topic MMR Vaccines Aged Out No longer eligi ble based on patient's age to complete this topic Meningococcal ACWY Vaccine Aged Out N o longer eligible based on patient's age to complete this topic Meningococcal B Vacine Aged Out No lo nger eligible based on patient's age to complete this topic RSV Immunization Patients Under 20 months Aged Out No longer eligible b ased on patient's age to complete this topic Varicella Vaccines Aged Out No longer eligible based on patient's age to complete this topic Procedures Procedure Name Priority Date/Time Associated Diagnosis Comments CBC WITH AUTO DIFFERENTIAL Routine 07/17/2024 7:00 AM EST BASIC METABOLIC PANEL Routine 07/17/2024 7:00 AM EST CBC AND DIFFERENTIAL Routine 07/17/2024 7:00 AM EST PHOSPHORUS Routine 07/17/2024 7:00 AM EST MAGNESIUM Routine 07/17/2024 7:00 AM EST TISSUE EXAM Routine 07/16/2024 11:58 AM EST Mass of uterus determined by ultrasound PMB (postmenopausal bleeding) HER-2 ADRIANA, FISH Routine 07/16/2024 11:58 AM EST Mass of uterus determined by ultrasound PMB (postmenopausal bleeding) ANESTHESIA PERIPHERAL IV PLACEMENT Routine 07/16/2024 11:42 AM EST TH AN ENDOTRACHEAL(NO CHARGE) Routine 07/16/2024 11:38 AM EST ID TOTAL ABDOMINAL HYSTERECTOMY W/WO REMOVAL OF TUBE/OVARY 07/16/2024 10:48 AM EST Uterine mass PMB (postmenopausal bleeding) Case Notes Inpt,Ecuadorean trim die maker needed SST - GOLD Routine 07/11/2024 9:15 AM EST Pelvic mass Mass of uterus determined by ultrasound Preop examination PMB (postmenopausal bleeding) EXTRA TUBES Routine 07/11/2024 9:15 AM EST Pelvic mass Mass of uterus determined by ultrasound Preop examination PMB (postmenopausal bleeding) ACTIVATED PARTIAL THROMBOPLASTIN TIME Routine 07/11/2024 9:03 AM EST Pelvic mass CBC WITH AUTO DIFFERENTIAL Routine 07/11/2024 9:00 AM EST Mass of uterus determined by ultrasound Preop examination CBC AND DIFFERENTIAL Routine 07/11/2024 9:00 AM EST Mass of uterus determined by ultrasound Preop examination PROTHROMBIN TIME WITH INR Routine 07/11/2024 9:00 AM EST Pelvic mass PROCEDURAL ECG Routine 07/11/2024 8:56 AM EST PMB (postmenopausal bleeding) Pelvic mass CT ABDOMEN PELVIS W CONTRAST Routine 06/20/2024 4:43 PM EST Mass of uterus determined by ultrasound CT CHEST W CONTRAST Routine 06/20/2024 4 :38 PM EST Pelvic mass CBC WITH AUTO DIFFERENTIAL Routine 06/04/2024 3:46 PM EST PMB (postmenopausal bleeding) Mass of uterus determined by ultrasound CANCER ANTIGEN 19-9 Routine 06/04/2024 3 :46 PM EST PMB (postmenopausal bleeding) Mass of uterus determined by ultrasound CARCINOEMBRYONIC ANTIGEN Routine 06/04/2024 3:46 PM EST PMB (postmenopausal bleeding) Mass of uterus determined by ultrasound Language barrier CANCER ANTIGEN 125 Routine 06/04/2024 3: 46 PM EST PMB (postmenopausal bleeding) Mass of uterus determined by ultrasound COMPREHENSIVE METABOLIC PANEL Routine 06/04/2024 3:46 PM EST PMB (postmenopausal bleeding) Mass of uterus determined by ultrasound CBC AND DIFFERENTIAL Routine 06/04/2024 3:46 PM EST PMB (postmenopausal bleeding) Mass of uterus determined by ultrasound TISSUE EXAM Routine 06/04/2024 PMB (postmenopausal bleeding) from Last 3 Months Results * (ABNORMAL) CBC auto differential (07/17/2024 7:00 AM EST) Only the most recent of3 resultswithin the time period is included. WBC 8.1 4.8 - 10.8 K/mcL LAB HEMETOLOGY METHOD 07/17/2024 7:51 AM [facility] RBC 4.00 3.80 - 4.80 M/mcL LAB HEMETOLOGY METHOD 07/17/2024 7:51 AM [facility] Hemoglobin 11.2(L) 11.5 - 16.0 g/dL LAB HEMETOLOGY METHOD 07/17/2024 7:51 AM [facility] Hematocrit 36.3 35.0 - 47.0 % LAB HEMETOLOGY METHOD 07/17/2024 7:51 AM [facility] MCV 90.8 79.0 - 98.0 FL LAB HEMETOLOGY METHOD 07/17/2024 7:51 AM [facility] MCH 28.0 27.0 - 32.0 pcg LAB HEMETOLOGY METHOD 07/17/2024 7:51 AM [facility] MCHC 30.9(L) 32.0 - 37.0 g/dL LAB HEMETOLOGY METHOD 07/17/2024 7:51 AM [facility] RDW 12.8 11.0 - 15.0 % LAB HEMETOLOGY METHOD 07/17/2024 7:51 AM [facility] Platelets 171 130 - 400 K/mcL LAB HEMETOLOGY METHOD 07/17/2024 7:51 AM [facility] MPV 12.8(H) 7.0 - 11.0 FL LAB HEMETOLOGY METHOD 07/17/2024 7:51 AM [facility] NRBC 0.0 <1.0 % LAB HEMETOLOGY METHOD 07/17/2024 7:51 AM [facility] NRBC Absolute 0.00 <0.10 K/mcL LAB HEMETOLOGY METHOD 07/17/2024 7:51 AM [facility] Neutrophils Relative 65.6 % LAB HEMETOLOGY METHOD 07/17/2024 7:51 AM [facility] Lymphocytes Relative 18.3 % LAB HEMETOLOGY METHOD 07/17/2024 7:51 AM [facility] Monocytes Relative 15.6 % LAB HEMETOLOGY METHOD 07/17/2024 7:51 AM [facility] Eosinophils Relative 0.2 % LAB HEMETOLOGY METHOD 07/17/2024 7:51 AM [facility] Basophils Relative 0.1 % LAB HEMETOLOGY METHOD 07/17/2024 7:51 AM [facility] Immature Granulocytes Relative 0.2 % LAB HEMETOLOGY METHOD 07/17/2024 7:51 AM [facility] Neutrophils Absolute 5.29 1.50 - 7.00 K/mcL LAB HEMETOLOGY METHOD 07/17/2024 7:51 AM [facility] Lymphocytes Absolute 1.48 1.00 - 5.00 K/mcL LAB HEMETOLOGY METHOD 07/17/2024 7:51 AM [facility] Monocytes Absolute 1.26(H) 0.20 - 1.00 K/mcL LAB HEMETOLOGY METHOD 07/17/2024 7:51 AM [facility] Eosinophils Absolute 0.02 0.00 - 0.50 K/mcL LAB HEMETOLOGY METHOD 07/17/2024 7:51 AM [facility] Basophils Absolute 0.01 0.00 - 0.20 K/[facility] LAB HEMETOLOGY METHOD 07/17/2024 7:51 AM EST [facility] Immature Granulocytes Absolute 0.02 0.00 - 0.03 K/[facility] LAB HEMETOLOGY METHOD 07/17/2024 7:51 AM EST [facility] Blood Venous blood specimen / Unknown Venipuncture / Unknown 07/17/2024 7:00 AM EST 07/17/2024 7:29 AM EST us Mattie BAGLEY LAB BLOOD ORDERABLES Final R esult [facility] [address] [place] [address], [place] [phone] * Phosphorus (07/17/2024 7:00 AM EST) Phosphorus 3.5 2.5 - 4.5 mg/dL LAB CHEMISTRY METHOD 07/17/2024 8:22 AM EST [facility] Blood Venous blood specimen / Unknown Venipuncture / Unknown 07/17/2024 7:00 AM EST 07/17/2024 7:29 AM EST us Mattie BAGLEY LAB BLOOD ORDERABLES Final R esult [facility] [address] [place] [address], [place] [phone] * Magnesium (07/17/2024 7:00 AM EST) Magnesium 2.2 1.9 - 2.6 mg/dL LAB CHEMISTRY METHOD 07/17/2024 8:22 AM EST [facility] Blood Venous blood specimen / Unknown Venipuncture / Unknown 07/17/2024 7:00 AM EST 07/17/2024 7:29 AM EST us Mattie BAGLEY LAB BLOOD ORDERABLES Final R esult [facility] [address] [place] [address], * (ABNORMAL) Basic metabolic panel (07/17/2024 7:00 AM EST) Sodium 138 133 - 145 mmol/L LAB CHEMISTRY METHOD 07/17/2024 8:22 AM [facility] Potassium 3.9 3.5 - 5.5 mmol/L LAB CHEMISTRY METHOD 07/17/2024 8:22 AM [facility] Chloride 105 96 - 110 mmol/L LAB CHEMISTRY METHOD 07/17/2024 8:22 AM [facility] CO2 28 21 - 32 mmol/L LAB CHEMISTRY METHOD 07/17/2024 8:22 AM [facility] Anion Gap 5 3 - 11 LAB CHEMISTRY METHOD 07/17/2024 8:22 AM [facility] Glucose 115(H) 70 - 100 mg/dL LAB CHEMISTRY METHOD 07/17/2024 8:22 AM [facility] BUN 12 5 - 25 mg/dL LAB CHEMISTRY METHOD 07/17/2024 8:22 AM [facility] Creatinine 0.61 0.50 - 1.10 mg/dL LAB CHEMISTRY METHOD 07/17/2024 8:22 AM [facility] eGFR 98 >=60 mL/min/1. 73m2 LAB CHEMISTRY METHOD 07/17/2024 8:22 AM [facility] Comment:Calculation based on the??Chronic Kidney Disease Epidemiology Collaboration (CKD-EPI) equation refit??without adjustment for race. BUN/Creatinine Ratio 19.7 LAB CHEMISTRY METHOD 07/17/2024 8:22 AM [facility] Calcium 8.2(L) 8.5 - 10.5 mg/dL LAB CHEMISTRY METHOD 07/17/2024 8:22 AM EST [facility] Blood Venous blood specimen / Unknown Venipuncture / Unknown 07/17/2024 7:00 AM EST 07/17/2024 7:29 AM EST us Mattie BAGLEY LAB BLOOD ORDERABLES Final R esult [facility] [address] [place] [address], * Tissue exam (07/16/2024 11:58 AM EST) Only the most recent of2 resultswithin the time period is included. Addendum This case was sent t o [facility], [address], [place], [place], (CLIA #[id number]) for HER2 (Other) - with Breast Scoring [...] 04:09:26 PM ET (Full report on file) 11:00 AM EST [facility] Addendum electronically signed by Itzel Ward MD on 07/29/2024 at 11:00 AM Final Diagnosis Uterus, cervix, left ovary and [...] Left fallopian tube without atypia or neoplasm 5 11:00 AM [facility] Comment The preliminary findings were discussed with Dr. Ramirez on 07/16/24. She was notified of the final diagnosis via secure chat on 07/22/24. 11:00 AM [facility] Gross Description A. Uterus, uterus, cervix, left fallopian tube, left ovary: Labeled uterus received in formalin is a 440 gram bulging, slightly globoid, dilated-appearing uterine corpus with attached left adnexa and attached right adhesions and probable fimbria. The uterine corpus measures 11.0 cm (lower uterine segment to fundus) x 8.5 cm (cornu to cornu) x up to 7.8 cm (anterior to posterior). The serosa is pink to red and focally shaggy/attenuated on the posterior aspect (centrally extending to the lower uterine segment) and is contiguous with a bulging, 5.0 cm in greatest diameter subserosal nodule. The attached cervix measures 3.0 cm in length and 2.0 cm and with. The ectocervical mucosa is white to red, glistening and shows a central, patent, 0.5 cm in greatest diameter slit-like os. The cervical os is probe patent to the lower uterine segment and an obstruction is noted in the lower uterine segment region (predominantly posterior). The uterine corpus is opened. The dilated endometrial cavity measures 8.5 x 8.0 cm and contains copious amounts of blood and a small amount of blood clots. The endometrial cavity is otherwise occupied by a mims-white, soft polypoid and papillary-appearing mass (8.5 x 8.0 cm). Some of the endometrium, just adjacent to the lower uterine segment is flat measuring approximately 0.1 cm. The mass has a maximal thickness of 1.8 on the anterior aspect and 3.0 cm on the posterior aspect. The mass is 0.35 to the anterior serosa and 0.3 to the posterior serosa. The mass has mims-white, firm cut surfaces with probable necrosis. The mass shows approximately 80% invasion of the myometrium. Additionally, the anterior lower uterine segment is mims-red, firm, slightly friable, polypoid and involved by the mass. On sectioning the mass invades the cervical stroma and has a maximal thickness of 0.65 cm, coming to 0.15 cm of the radial surface on the anterior aspect. There is also involvement of the cervical stroma on the posterior aspect with a maximal thickness of 0.5 cm, coming to 0.6 cm of the radial surface. The lower uterine segment contains a separate-appearing 2.9 cm in maximal diameter circumscribed nodule involving the posterior aspect with minimal superficial anterior involvement. The nodule is focally calcified. The surface of the nodule is is focally mims-red and nodular (? superficial involvement by aforementioned mass). The bulging posterior subserosal nodule has white, rubbery to firm cut surfaces. In some areas the nodule abuts the endometrial mass and in others appears to be involved by the mass. There is an additional anterior 0.75 cm in greatest intramural nodule towards the fundus which also shows questionable involvement by the endometrial mass. There are a few other separate, rubbery, white, intramural nodules measuring up to 0.8 cm in greatest diameter. The uninvolved myometrium is rubbery and contains vessels with calcified plaques. The myometrium measures approximately 0.8 cm in thickness. The right adnexa region shows adhesions and contains a probable 1.0 cm in greatest diameter portion of fallopian tube which is mainly fimbria and consists of a small tubal portion (0.5 cm in diameter) which on sectioning has a central, pinpoint lumen. The attached left fallopian tube segment measures 7.5 cm in length and ranges from 0.6 cm to 1.8 cm in diameter. A fimbriated end is absent. Fimbria are not appreciated. The dilated end is adhesed on itself by dense adhesions. On sectioning the lumen ranges from pinpoint, to mainly dilated, up to 1.8 cm in diameter. The tube contains mims-brown fluid. The lining is smooth with questionable tiny excrescences. The tube has an attached 2.0 cm in greatest diameter probable portion of intact ovary. On sectioning the ovarian stroma contains a 0.8 cm smooth-walled, unilocular cyst and a 0.4 cm in greatest diameter firm white nodule. Additionally, the left adnexa contains a 0.5 cm in greatest diameter rubbery pale white nodule and has an additional portion of ovary measuring 1.5 cm in greatest diameter which has mims rubbery cut surfaces with corpora albicantia and a central madera yellow focus. Digital photographs are taken. Rounding And Backing Machine Operator sections are submitted in thirty-eight cassettes. 1-anterior cervix, one piece 2-3 cross-sections of lower uterine segment with greatest depth of invasion into the cervical stroma, one piece each 4-longitudinal sections adjacent to cross-sections of anterior lower uterine segment, including tip of lower uterine segment nodule, following decalcification in Immunocal, one piece 5-13 sequential anterior endomyometrium submitted from lower uterine segment to fundus (5-7 contains flattened areas), including separate intramural nodules and nodule that focally merges with mass (cassette 13), one piece each 14-posterior cervix, one piece 15-posterior lower uterine segment nodule, one piece 16-17 posterior lower uterine segment with obstructing nodule with calcification, with underlying cervical stroma involvement of lower uterine segment, two and 1 piece, following decalcification in Immunocal, one piece each 18-additional posterior lower uterine segment with invasion of cervical stroma, one piece each 19-endometrial mass superficial involvement of obstructing lower uterine segment nodule, one piece 20-31 sequential sections of posterior endomyometrium including flattened areas, including surrounding uninvolved nodules and large intramural nodule merging with mass (25, 26 and 27-28 bisected rcvao-shxeylp-dltkg green where bisected, 29-contains just nodule-no mass), full-thickness sections, submitted sequentially from lower uterine segment to fundus, one piece each 32-possible right fallopian tube in entirety including cross-section and the longitudinally bisected suspected fimbriated end, three pieces 33-35 cross-sections of left fallopian tube (33-three pieces, 34-35: two pieces each) 36-left ovary, in entirety, three pieces 37-left adnexal nodule, in entirety, two pieces 38-additional portion of left ovary adjacent to adnexal nodule, in entirety, three pieces TS/A3L 5 11:00 AM EST [facility] Special Stains In block A12, a small [...] proteins: low probability of microsatellite instability-high (MSIH) There are exceptions to the above IHC interpretations. These results should not be considered in isolation, and clinical correlation with genetic counseling is recommended to assess the need for germline testing. FFPE Block: A30 Cold Ischemia and Fixation Times: Meets requirements specified in the latest version of the ASCO/CAP guidelines These tests have not been validated for use on decalcified tissue, non-formalin fixed tissue, or tissue fixed outside of the ASCO/CAP guidelines. Criteria for evaluation: ER: Staining evaluation ER: Positive= >1% positive nuclei ID: Staining evaluation ID: Positive= >1% positive nuclei HER2: Staining evaluation for HER2 (2018 Clinical Trial Criteria, Yumiko N et al, 2020): - NEGATIVE (0): No staining in tumor cells. - NEGATIVE (1+): Faint/barely perceptible, incomplete membrane staining in any proportion, or weak complete staining in <10% of tumor cells. - EQUIVOCAL (2+): Strong complete or basolateral/lateral membrane staining in <30%, or weak to moderate complete or basolateral staining in >10% of tumor cells. - POSITIVE (3+): Strong complete or basolateral/lateral staining in more than 30% of cells. Mismatch repair proteins: Any positive reaction in the nuclei of tumor cells is considered as intact expression. p53 expression: Abnormal staining - strong diffuse overexpression (>90%), null expression (complete loss of expression), cytoplasmic staining only Detection system: Polymer HRP, Leica In vitro diagnostic use: ER clone [id number] [facility], ID clone [id number] [facility], MLH1 [id number] Leica, MSH2 clone [id number] Leica, MSH6 clone [id number] Leica, PMS2 clone [id number] [facility], p53 clone [id number] [facility] Analyte specific reagents: HER2 clone EP3 [employer] 5 11:00 AM EST [facility] ([facility]) [facility] Synoptic Checklist ENDOMETRIUM ENDOMETRIUM - All Specimens 8th Edition - Protocol posted: 06/21/2023 SPECIMEN ?? Procedure: ?Simple hysterectomy ?? Procedure: ?Left salpingo-oophorectomy TUMOR ?? Tumor Site: ?Endometrium ?? Tumor Size: ?Greatest Dimension (Centimeters): 8 cm ?? 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 Myometrial Invasion: ?Present ? Depth of Myometrial Invasion: ?18 mm ? Myometrial Thickness: ?20 mm ? Percentage of Myometrial Invasion: ?90 % ?? Adenomyosis: ?Present, involved by carcinoma ?? Uterine Serosa Involvement: ?Not identified ?? Lower Uterine Segment Involvement: ?Present, myoinvasive ?? Cervical Stromal Involvement: ?Present ? Depth of Cervical Stroma Invasion: ?7 mm ? Cervical Stroma Thickness: ?9 mm ?? Other Tissue / Organ Involvement: ?Not identified ?? Peritoneal / Ascitic Fluid: ?Not submitted / unknown ?? Lymphatic and / or Vascular Invasion: ?Present ? : ?Focal (less than 5 vessel involvement) MARGINS ?? Margin Status: ?All margins negative for invasive carcinoma ? Closest Margin(s) to Invasive Carcinoma: ?Parametrial / paracervical ? Distance from Invasive Carcinoma to Closest Margin: ?3 mm REGIONAL LYMPH NODES ?? Regional Lymph Node Status: ?Not applicable (no regional lymph nodes submitted or found) pTNM CLASSIFICATION (AJCC 8th Edition) ?? Reporting of pT, pN, and (when applicable) pM categories is based on information available to the pathologist at the time the report is issued. As per the AJCC (Chapter 1, 8th Ed.) it is the managing physician? s responsibility to establish the final pathologic stage based upon all pertinent information, including but potentially not limited to this pathology report. ?? pT Category: ?pT2 ?? pN Category: ?pN not assigned (no nodes submitted or found) FIGO STAGE ?? FIGO Stage: ?IICm (p53abn) ?? FIGO Modified Classification: ?[id number] 11:00 AM EST [facility] Disclaimer NOTE: The immunohistochemical tests and in situ hybridization tests were developed and their performance characteristics were determined by [facility]. They have not been cleared or approved by the U.S. Food and Drug Administration. The FDA has determined that such clearance or approval is not necessary. These tests are used for clinical purposes. They should not be regarded as investigational or for research. This laboratory is certified under the Clinical Laboratory Improvement Amendments of 1988 (CLIA) as qualified to perform high complexity clinical laboratory testing. (controls appropriate) Unless otherwise specified, all tissue is 10% NB formalin fixed and paraffin embedded. 11:00 AM EST [facility] Tissue Uterine structure / Unknown 07/16/2024 11:58 AM EST 07/16/2024 2:36 PM EST Roosevelt Ramirez MD LAB PATHOLOGY ORDERABLES Edited Result - Final [facility] [address] [place] [address], * HER-2 ADRIANA, FISH (07/16/2024 11:58 AM EST) Scan Result See Scanned Result 07/29/2024 4:23 PM EST EXTERNAL LAB (NON-INTERFAC ED) Tissue Uterine structure / Unknown 07/16/2024 11:58 AM EST 07/23/2024 5:23 AM EST Roosevelt Ramirez MD LAB CYTOGENETICS ORDERABLES Rosanna yañez Result EXTERNAL LAB (NON-INTERFACED) * Peripheral IV (07/16/2024 11:42 AM EST) Narrative Sury Beaulieu CRNA - 07/16/2024 11:42 AM EST Sury Beaulieu CRNA ? 07/16/2024 11:43 AM Peripheral IV Inserted by: JAMILA Calle Placement Needle size: 18 G Laterality: left Location: hand Site prep: alcohol Attempts: 1 Joanie Urena MD ANESTHESIA ORDERABLES Fin al Result * TH AN ENDOTRACHEAL(NO CHARGE) (07/16/2024 11:38 AM EST) Narrative Sury Beaulieu CRNA - 07/16/2024 11:38 AM EST Sury Beaulieu CRNA ? 07/16/2024 11:42 AM General Information and Staff Patient location during procedure: OR Other anesthesia staff: JAMILA Calle Performed: other anesthesia staff Performed by: Sury Beaulieu CRNA Authorized by: Joanie Urena MD ?? Intubation Airway not difficult Urgency: elective Final Airway Details Successful airway: ETT Cuffed: yes Successful intubation technique: direct laryngoscopy Facilitating devices/methods: anterior pressure/BURP Blade: Deidra Blade size: #3 ETT size (mm): 7.0 Cormack-Lehane Classification: grade I - full view of glottis Placement verified by: chest auscultation, capnometry and palpation of cuff Inital cuff pressure (cm H2O): 22 Measured from: lips Number of attempts at approach: 1Final airway type: endotracheal airway Indications and Patient Condition Indications for airway management: anesthesia Spontaneous Ventilation: absent Sedation level: Yes Preoxygenated: yes Soft Tissue Damage: No Dentition Unchanged: Yes Patient position: neutral MILS maintained throughout Mask difficulty assessment: 1 - vent by mask Joanie Urena MD ANESTHESIA ORDERABLES Fin al Result * SST tube (07/11/2024 9:15 AM EST) Extra Tube Hold for add-ons. 07/11/2024 11:01 AM EST [facility] Comment:Auto resulted. Blood Venous blood specimen / Unknown 07/11/2024 9:15 AM EST 07/11/2024 9:35 AM EST us Roosevelt Ramirez MD LAB BLOOD ORDERABLES Final Resul t [facility] [address] [place] [address], [place] [phone] * Activated partial thromboplastin time (07/11/2024 9:03 AM EST) aPTT 33.7 24.1 - 39.3 sec LAB COAGULATION METHOD 07/11/2024 10:11 AM EST [facility] Blood Venous blood specimen / Unknown Venipuncture / Unknown 07/11/2024 9:03 AM EST 07/11/2024 9:32 AM EST us Roosevelt Ramirez MD LAB BLOOD ORDERABLES Final Resul t Performing Organization Address City/[facility]/ZIP Co de Phone Number [facility] [address] [place] [address], [place] [phone] * Prothrombin time with INR (07/11/2024 9:00 AM EST) Protime 11.5 10.6 - 13.9 sec LAB COAGULATION METHOD 07/11/2024 10:11 AM EST [facility] INR 0.9 LAB COAGULATION METHOD 07/11/2024 10:11 AM EST [facility] Blood Venous blood specimen / Unknown Venipuncture / Unknown 07/11/2024 9:00 AM EST 07/11/2024 9:32 AM EST us Roosevelt Ramirez MD LAB BLOOD ORDERABLES Final Resul t [facility] [address] [place] [address], [place] [phone] * ECG 12 lead - Procedural (No Charge) (07/11/2024 8:56 AM EST) Ventricular Rate ECG 77 BPM GEMUSE Atrial Rate 77 BPM GEMUSE P-R Interval 164 ms GEMUSE QRS Duration 94 ms GEMUSE Q-T Interval 406 ms GEMUSE QTc 459 ms GEMUSE P Wave Gepp 57 degrees GEMUSE R Gepp -4 degrees GEMUSE T Gepp 17 degrees GEMUSE ECG Interpretation Normal sinus rhythm Possible Left atrial enlargement Cannot rule out Anterior infarct , age undetermined Abnormal ECG No previous ECGs available Confirmed by MD Jayme, Tc ([id number]) on 07/11/2024 5:33:39 PM GEMUSE 07/11/2024 8:56 AM EST 07/11/2024 5:33 PM EST Roosevelt Ramirez MD ECG ORDERABLES Final Result GEMUSE * CT Abdomen Pelvis w Contrast (06/20/2024 4:43 PM EST) Anatomical Region Laterality Modality Body Computed Tomogra phy 06/21/2024 1:06 PM EST Impressions 06/21/2024 1:47 PM EST Enlarged heterogeneous uterus with multiple calcifications. I suspect thickening of the endometrium or fluid within the endometrial cavity. Endometrial sampling should be considered. Although the ovaries are not optimally evaluated I favor an endometrial/uterine process. There are numerous small pulmonary nodules which could be postinflammatory. ??Short interval follow-up CT in 6 months recommended. Multiple stable liver lesions do not require specific imaging follow-up. ?? -------- FINAL REPORT -------- Dictated By: Pepe Mosley Dictated Date: 06/21/2024 13:06 ET Assigned Physician: Pepe Mosley Reviewed and Electronically Signed By: Pepe Mosley Signed Date: 06/21/2024 13:47 ET Workstation ID: [id number] Transcribed By: Self Edit Transcribed Date: 06/21/2024 13:06 ET Narrative 06/21/2024 1:47 PM EST EXAMINATION: CT CHEST, ABDOMEN and PELVIS WITH CONTRAST CLINICAL INFORMATION: Endometrial carcinoma. ??Pelvic mass on ultrasound. COMPARISON: Portions of a previous abdomen CT 12/02/2017 ?? TECHNIQUE: Multidetector CT. Examination of the chest, abdomen and pelvis. Examination of the chest and abdomen following the IV administration of nonionic contrast. Reformatting in the coronal and sagittal planes. DLP: 809 mGy-cm Dose optimization was performed including the use of low-dose iterative reconstruction technique with automatic exposure control based on patient size. Type of contrast: ISOVUE 370 Volume of IV contrast: 90 mL Volume of contrast discarded: 0 mL FINDINGS: LUNG: No abnormality of the trachea or mainstem bronchi. There are multiple small scattered bilateral nodules in each lung. ??There are some areas of pleural and/or parenchymal disease in the apices the largest in the left apex. ??These could be postinflammatory. ??At least one of the small nodules is calcified. The pattern is nonspecific but could be related to previous granulomatous disease. There are small areas of fibrosis adjacent to some lower right-sided osteophytes. ?? MEDIASTINUM: ??Top normal left hilar lymph nodes. ??No enlarged mediastinal lymph nodes. ??No suspicious abnormality of the esophagus. CARDIAC: The heart is not enlarged. No pericardial fluid or thickening ?? CORONARY CALCIFICATION: Mild coronary calcification VASCULAR: There is no thoracic aortic aneurysm. The main pulmonary artery is normal caliber ?? PLEURAL: There is no pleural fluid or pneumothorax ?? AXILLA/CHEST WALL: There are no enlarged axillary lymph nodes. No suspicious chest wall mass demonstrated. There is a subcutaneous low attenuating mass near the left axilla which could represent a sebaceous cyst (22/255). ?? LIVER: There are 2 peripheral low attenuating lesions in the posterior dome of hepatic segment 7. ??These were present 12/02/2017 and have been evaluated with MRI. ??No suspicious interval change. ?? There is a probable cyst in the central aspect of the liver below the portal bifurcation which is unchanged and some and does not require any specific imaging follow-up. The lesion which likely represents hemangioma in the periphery of hepatic segment 6 is associated with some capsular retraction. ??The interval decrease in size is reassuring. There is a 1.4 cm hyperdense mass in the posterior lower aspect of the right lobe of the liver (142/255). ??This was present on MRI 12/25/2017. ??Diagnostic possibilities include focal nodular hyperplasia, flash filling hemangioma or even adenoma. ??The long-term stability is reassuring. ?? BILIARY TRACT: ??The gallbladder is distended. ??No opaque gallstone, gallbladder wall thickening or biliary dilation SPLEEN: The spleen is not enlarged. ??No suspicious abnormality. ?? PANCREAS: No suspicious abnormality. ?? ADRENAL GLANDS: Within normal limits ?? KIDNEYS: There is no significant dilation of the intrarenal collecting system on either side. ??Then nephrograms are symmetric. ??There are circumscribed low attenuating masses consistent with cysts. ??No suspicious renal mass on either side. GASTROINTESTINAL TRACT: No localized colonic wall thickening. ??The appendix is normal. ??There is contrast present within small bowel loops and the proximal and mid colon. ??No suspicious abnormality of the stomach. ?? URINARY BLADDER: ??The bladder is not well distended. ??No large abnormality. PELVIC VISCERA: ??Abnormal. The uterus is in neutral position. ??There is no convincing abnormality in the lower two thirds of the vagina. ??The uterus is enlarged and heterogeneous. ??The uterus measures approximately 10.4 x 6.1 x 9.8 cm. ??On 12/02/2017 the uterus measured approximately 10.9 x 6.0 x 7.6 cm. There are numerous peripheral calcifications. ??There is a suggestion of some distention of the endometrial cavity which could be as much as 2.5 cm. There is a tubular low attenuating structure in the left adnexa which appears similar to previous. ??A discrete right ovary is not deathly identified. ABDOMINAL WALL: No significant hernia is appreciated. ??Small amount of fat protrudes through the umbilicus. LYMPHOVASCULAR STRUCTURES AND FLUID: There is no abdominal aortic aneurysm. ??The portal vein enhances. There are no measurably enlarged lymph nodes. There is no significant free intraperitoneal fluid. ??A circumscribed oval low attenuating structure adjacent to the sigmoid posteriorly in the deep left pelvis is of uncertain etiology or significance (210/255). ?? MUSCULOSKELETAL: Enlargement of the sacral neural foramina are unchanged and likely related to perineural cysts. ?? Procedure Note Pepe Mosley MD - 06/21/2024 EXAMINATION: CT CHEST, ABDOMEN and PELVIS WITH CONTRAST CLINICAL INFORMATION: Endometrial carcinoma. Pelvic mass on ultrasound. COMPARISON: Portions of a previous abdomen CT 12/02/2017 TECHNIQUE: Multidetector CT. Examination of the chest, abdomen and pelvis. Examination of the chest and abdomen following the IV administration ofnonionic contrast. Reformatting in the coronal and sagittal planes. DLP: 809 mGy-cm Dose optimization was performed including the use of low-dose iterativereconstruction technique with automatic exposure control based on patientsize. Type of contrast: ISOVUE 370 Volume of IV contrast: 90 mL Volume of contrast discarded: 0 mL FINDINGS: LUNG: No abnormality of the trachea or mainstem bronchi. There are multiple small scattered bilateral nodules in each lung. Thereare some areas of pleural and/or parenchymal disease in the apices thelargest in the left apex. These could be postinflammatory. At least oneof the small nodules is calcified. The pattern is nonspecific but could be related to previous granulomatousdisease. There are small areas of fibrosis adjacent to some lower right-sidedosteophytes. MEDIASTINUM: Top normal left hilar lymph nodes. No enlarged mediastinallymph nodes. No suspicious abnormality of the esophagus. CARDIAC: The heart is not enlarged. No pericardial fluid or thickening CORONARY CALCIFICATION: Mild coronary calcification VASCULAR: There is no thoracic aortic aneurysm. The main pulmonary arteryis normal caliber PLEURAL: There is no pleural fluid or pneumothorax AXILLA/CHEST WALL: There are no enlarged axillary lymph nodes. Nosuspicious chest wall mass demonstrated. There is a subcutaneous low attenuating mass near the left axilla whichcould represent a sebaceous cyst (22/255). LIVER: There are 2 peripheral low attenuating lesions in the posteriordome of hepatic segment 7. These were present 12/02/2017 and have beenevaluated with MRI. No suspicious interval change. There is a probable cyst in the central aspect of the liver below theportal bifurcation which is unchanged and some and does not require anyspecific imaging follow-up. The lesion which likely represents hemangioma in the periphery of hepaticsegment 6 is associated with some capsular retraction. The intervaldecrease in size is reassuring. There is a 1.4 cm hyperdense mass in the posterior lower aspect of theright lobe of the liver (142/255). This was present on MRI 12/25/2017.Diagnostic possibilities include focal nodular hyperplasia, flash fillinghemangioma or even adenoma. The long-term stability is reassuring. BILIARY TRACT: The gallbladder is distended. No opaque gallstone,gallbladder wall thickening or biliary dilation SPLEEN: The spleen is not enlarged. No suspicious abnormality. PANCREAS: No suspicious abnormality. ADRENAL GLANDS: Within normal limits KIDNEYS: There is no significant dilation of the intrarenal collectingsystem on either side. Then nephrograms are symmetric. There arecircumscribed low attenuating masses consistent with cysts. No suspiciousrenal mass on either side. GASTROINTESTINAL TRACT: No localized colonic wall thickening. Theappendix is normal. There is contrast present within small bowel loopsand the proximal and mid colon. No suspicious abnormality of the stomach. URINARY BLADDER: The bladder is not well distended. No largeabnormality. PELVIC VISCERA: Abnormal. The uterus is in neutral position. There is no convincing abnormality inthe lower two thirds of the vagina. The uterus is enlarged andheterogeneous. The uterus measures approximately 10.4 x 6.1 x 9.8 cm. On12/02/2017 the uterus measured approximately 10.9 x 6.0 x 7.6 cm. There are numerous peripheral calcifications. There is a suggestion ofsome distention of the endometrial cavity which could be as much as 2.5cm. There is a tubular low attenuating structure in the left adnexa whichappears similar to previous. A discrete right ovary is not deathlyidentified. ABDOMINAL WALL: No significant hernia is appreciated. Small amount of fatprotrudes through the umbilicus. LYMPHOVASCULAR STRUCTURES AND FLUID: There is no abdominal aorticaneurysm. The portal vein enhances. There are no measurably enlarged lymph nodes. There is no significant free intraperitoneal fluid. A circumscribed ovallow attenuating structure adjacent to the sigmoid posteriorly in the deepleft pelvis is of uncertain etiology or significance (210/255). MUSCULOSKELETAL: Enlargement of the sacral neural foramina are unchangedand likely related to perineural cysts. IMPRESSION: Enlarged heterogeneous uterus with multiple calcifications. I suspect thickening of the endometrium or fluid within the endometrialcavity. Endometrial sampling should be considered. Although the ovaries are not optimally evaluated I favor anendometrial/uterine process. There are numerous small pulmonary nodules which could bepostinflammatory. Short interval follow-up CT in 6 months recommended. Multiple stable liver lesions do not require specific imaging follow-up. -------- FINAL REPORT -------- Dictated By: Pepe Mosley Dictated Date: 06/21/2024 13:06 ET Assigned Physician: Pepe Mosley Reviewed and Electronically Signed By: Pepe Mosley Signed Date: 06/21/2024 13:47 ET Workstation ID: [id number] Transcribed By: Self Edit Transcribed Date: 06/21/2024 13:06 ET Tenisha SERRANO IM CT PROCEDURES Final Resul t * CT Chest w Contrast (06/20/2024 4:38 PM EST) Anatomical Region Laterality Modality Body Computed Tomogra phy 06/21/2024 1:06 PM EST Impressions 06/21/2024 1:47 PM EST Enlarged heterogeneous uterus with multiple calcifications. I suspect thickening of the endometrium or fluid within the endometrial cavity. Endometrial sampling should be considered. Although the ovaries are not optimally evaluated I favor an endometrial/uterine process. There are numerous small pulmonary nodules which could be postinflammatory. ??Short interval follow-up CT in 6 months recommended. Multiple stable liver lesions do not require specific imaging follow-up. ?? -------- FINAL REPORT -------- Dictated By: Pepe Mosley Dictated Date: 06/21/2024 13:06 ET Assigned Physician: Pepe Mosley Reviewed and Electronically Signed By: Pepe Mosley Signed Date: 06/21/2024 13:47 ET Workstation ID: [id number] Transcribed By: Self Edit Transcribed Date: 06/21/2024 13:06 ET Narrative 06/21/2024 1:47 PM EST EXAMINATION: CT CHEST, ABDOMEN and PELVIS WITH CONTRAST CLINICAL INFORMATION: Endometrial carcinoma. ??Pelvic mass on ultrasound. COMPARISON: Portions of a previous abdomen CT 12/02/2017 ?? TECHNIQUE: Multidetector CT. Examination of the chest, abdomen and pelvis. Examination of the chest and abdomen following the IV administration of nonionic contrast. Reformatting in the coronal and sagittal planes. DLP: 809 mGy-cm Dose optimization was performed including the use of low-dose iterative reconstruction technique with automatic exposure control based on patient size. Type of contrast: ISOVUE 370 Volume of IV contrast: 90 mL Volume of contrast discarded: 0 mL FINDINGS: LUNG: No abnormality of the trachea or mainstem bronchi. There are multiple small scattered bilateral nodules in each lung. ??There are some areas of pleural and/or parenchymal disease in the apices the largest in the left apex. ??These could be postinflammatory. ??At least one of the small nodules is calcified. The pattern is nonspecific but could be related to previous granulomatous disease. There are small areas of fibrosis adjacent to some lower right-sided osteophytes. ?? MEDIASTINUM: ??Top normal left hilar lymph nodes. ??No enlarged mediastinal lymph nodes. ??No suspicious abnormality of the esophagus. CARDIAC: The heart is not enlarged. No pericardial fluid or thickening ?? CORONARY CALCIFICATION: Mild coronary calcification VASCULAR: There is no thoracic aortic aneurysm. The main pulmonary artery is normal caliber ?? PLEURAL: There is no pleural fluid or pneumothorax ?? AXILLA/CHEST WALL: There are no enlarged axillary lymph nodes. No suspicious chest wall mass demonstrated. There is a subcutaneous low attenuating mass near the left axilla which could represent a sebaceous cyst (22/255). ?? LIVER: There are 2 peripheral low attenuating lesions in the posterior dome of hepatic segment 7. ??These were present 12/02/2017 and have been evaluated with MRI. ??No suspicious interval change. ?? There is a probable cyst in the central aspect of the liver below the portal bifurcation which is unchanged and some and does not require any specific imaging follow-up. The lesion which likely represents hemangioma in the periphery of hepatic segment 6 is associated with some capsular retraction. ??The interval decrease in size is reassuring. There is a 1.4 cm hyperdense mass in the posterior lower aspect of the right lobe of the liver (142/255). ??This was present on MRI 12/25/2017. ??Diagnostic possibilities include focal nodular hyperplasia, flash filling hemangioma or even adenoma. ??The long-term stability is reassuring. ?? BILIARY TRACT: ??The gallbladder is distended. ??No opaque gallstone, gallbladder wall thickening or biliary dilation SPLEEN: The spleen is not enlarged. ??No suspicious abnormality. ?? PANCREAS: No suspicious abnormality. ?? ADRENAL GLANDS: Within normal limits ?? KIDNEYS: There is no significant dilation of the intrarenal collecting system on either side. ??Then nephrograms are symmetric. ??There are circumscribed low attenuating masses consistent with cysts. ??No suspicious renal mass on either side. GASTROINTESTINAL TRACT: No localized colonic wall thickening. ??The appendix is normal. ??There is contrast present within small bowel loops and the proximal and mid colon. ??No suspicious abnormality of the stomach. ?? URINARY BLADDER: ??The bladder is not well distended. ??No large abnormality. PELVIC VISCERA: ??Abnormal. The uterus is in neutral position. ??There is no convincing abnormality in the lower two thirds of the vagina. ??The uterus is enlarged and heterogeneous. ??The uterus measures approximately 10.4 x 6.1 x 9.8 cm. ??On 12/02/2017 the uterus measured approximately 10.9 x 6.0 x 7.6 cm. There are numerous peripheral calcifications. ??There is a suggestion of some distention of the endometrial cavity which could be as much as 2.5 cm. There is a tubular low attenuating structure in the left adnexa which appears similar to previous. ??A discrete right ovary is not deathly identified. ABDOMINAL WALL: No significant hernia is appreciated. ??Small amount of fat protrudes through the umbilicus. LYMPHOVASCULAR STRUCTURES AND FLUID: There is no abdominal aortic aneurysm. ??The portal vein enhances. There are no measurably enlarged lymph nodes. There is no significant free intraperitoneal fluid. ??A circumscribed oval low attenuating structure adjacent to the sigmoid posteriorly in the deep left pelvis is of uncertain etiology or significance (210/255). ?? MUSCULOSKELETAL: Enlargement of the sacral neural foramina are unchanged and likely related to perineural cysts. ?? Procedure Note Pepe Mosley MD - 06/21/2024 EXAMINATION: CT CHEST, ABDOMEN and PELVIS WITH CONTRAST CLINICAL INFORMATION: Endometrial carcinoma. Pelvic mass on ultrasound. COMPARISON: Portions of a previous abdomen CT 12/02/2017 TECHNIQUE: Multidetector CT. Examination of the chest, abdomen and pelvis. Examination of the chest and abdomen following the IV administration ofnonionic contrast. Reformatting in the coronal and sagittal planes. DLP: 809 mGy-cm Dose optimization was performed including the use of low-dose iterativereconstruction technique with automatic exposure control based on patientsize. Type of contrast: ISOVUE 370 Volume of IV contrast: 90 mL Volume of contrast discarded: 0 mL FINDINGS: LUNG: No abnormality of the trachea or mainstem bronchi. There are multiple small scattered bilateral nodules in each lung. Thereare some areas of pleural and/or parenchymal disease in the apices thelargest in the left apex. These could be postinflammatory. At least oneof the small nodules is calcified. The pattern is nonspecific but could be related to previous granulomatousdisease. There are small areas of fibrosis adjacent to some lower right-sidedosteophytes. MEDIASTINUM: Top normal left hilar lymph nodes. No enlarged mediastinallymph nodes. No suspicious abnormality of the esophagus. CARDIAC: The heart is not enlarged. No pericardial fluid or thickening CORONARY CALCIFICATION: Mild coronary calcification VASCULAR: There is no thoracic aortic aneurysm. The main pulmonary arteryis normal caliber PLEURAL: There is no pleural fluid or pneumothorax AXILLA/CHEST WALL: There are no enlarged axillary lymph nodes. Nosuspicious chest wall mass demonstrated. There is a subcutaneous low attenuating mass near the left axilla whichcould represent a sebaceous cyst (22/255). LIVER: There are 2 peripheral low attenuating lesions in the posteriordome of hepatic segment 7. These were present 12/02/2017 and have beenevaluated with MRI. No suspicious interval change. There is a probable cyst in the central aspect of the liver below theportal bifurcation which is unchanged and some and does not require anyspecific imaging follow-up. The lesion which likely represents hemangioma in the periphery of hepaticsegment 6 is associated with some capsular retraction. The intervaldecrease in size is reassuring. There is a 1.4 cm hyperdense mass in the posterior lower aspect of theright lobe of the liver (142/255). This was present on MRI 12/25/2017.Diagnostic possibilities include focal nodular hyperplasia, flash fillinghemangioma or even adenoma. The long-term stability is reassuring. BILIARY TRACT: The gallbladder is distended. No opaque gallstone,gallbladder wall thickening or biliary dilation SPLEEN: The spleen is not enlarged. No suspicious abnormality. PANCREAS: No suspicious abnormality. ADRENAL GLANDS: Within normal limits KIDNEYS: There is no significant dilation of the intrarenal collectingsystem on either side. Then nephrograms are symmetric. There arecircumscribed low attenuating masses consistent with cysts. No suspiciousrenal mass on either side. GASTROINTESTINAL TRACT: No localized colonic wall thickening. Theappendix is normal. There is contrast present within small bowel loopsand the proximal and mid colon. No suspicious abnormality of the stomach. URINARY BLADDER: The bladder is not well distended. No largeabnormality. PELVIC VISCERA: Abnormal. The uterus is in neutral position. There is no convincing abnormality inthe lower two thirds of the vagina. The uterus is enlarged andheterogeneous. The uterus measures approximately 10.4 x 6.1 x 9.8 cm. On12/02/2017 the uterus measured approximately 10.9 x 6.0 x 7.6 cm. There are numerous peripheral calcifications. There is a suggestion ofsome distention of the endometrial cavity which could be as much as 2.5cm. There is a tubular low attenuating structure in the left adnexa whichappears similar to previous. A discrete right ovary is not deathlyidentified. ABDOMINAL WALL: No significant hernia is appreciated. Small amount of fatprotrudes through the umbilicus. LYMPHOVASCULAR STRUCTURES AND FLUID: There is no abdominal aorticaneurysm. The portal vein enhances. There are no measurably enlarged lymph nodes. There is no significant free intraperitoneal fluid. A circumscribed ovallow attenuating structure adjacent to the sigmoid posteriorly in the deepleft pelvis is of uncertain etiology or significance (210/255). MUSCULOSKELETAL: Enlargement of the sacral neural foramina are unchangedand likely related to perineural cysts. IMPRESSION: Enlarged heterogeneous uterus with multiple calcifications. I suspect thickening of the endometrium or fluid within the endometrialcavity. Endometrial sampling should be considered. Although the ovaries are not optimally evaluated I favor anendometrial/uterine process. There are numerous small pulmonary nodules which could bepostinflammatory. Short interval follow-up CT in 6 months recommended. Multiple stable liver lesions do not require specific imaging follow-up. -------- FINAL REPORT -------- Dictated By: Pepe Mosley Dictated Date: 06/21/2024 13:06 ET Assigned Physician: Pepe Mosley Reviewed and Electronically Signed By: Pepe Mosley Signed Date: 06/21/2024 13:47 ET Workstation ID: [id number] Transcribed By: Self Edit Transcribed Date: 06/21/2024 13:06 ET Roosevlet Ramirez MD IMG CT PROCEDURES Final Result * Cancer antigen 19-9 (06/04/2024 3:46 PM EST) CA 19-9 17.8 <=35 U/mL 06/10/2024 11:10 AM EST [facility] Comment: The Siemens Advia Centaur CA199 Chemiluminescent Immunoassay is used. Results obtained with different assay methods or kits cannot be used interchangeably. Results cannot be interpreted as absolute evidence of the presence or absence of malignant disease. Test performed at [facility], [address] , [place], [place] ??[address] ? [phone] Genevieve Angel MD, PhD - Clinic Coordinator Blood Venous blood specimen / Unknown Venipuncture / Unknown 06/04/2024 3:46 PM EST 06/04/2024 4:27 PM EST Roosevelt Ramirez MD LAB BLOOD ORDERABLES Final Resul t [facility] [address] [place] [address] * Cancer antigen 125 (06/04/2024 3:46 PM EST) CA 125 19.6 <35.0 unit/mL LAB CHEMISTRY METHOD 06/04/2024 5:45 PM EST [facility] Blood Venous blood specimen / Unknown Venipuncture / Unknown 06/04/2024 3:46 PM EST 06/04/2024 4:29 PM EST Narrative [facility] - 06/04/2024 5:45 PM EST The Siemens Advia Centaur Chemiluminescent Immunoassay is used. Results obtained with different assay methods or kits cannot be used interchangeably. Results cannot be interpreted as absolute evidence of the presence or absence of malignant disease. us Roosevelt Ramirez MD LAB BLOOD ORDERABLES Final Resul t [facility] [address] [place] [address], [place] [phone] * CEA (06/04/2024 3:46 PM EST) [facility] CEA 2.5 0.0 - 5.0 ng/mL LAB CHEMISTRY METHOD 06/04/2024 5:23 PM EST [facility] Blood Venous blood specimen / Unknown Venipuncture / Unknown 06/04/2024 3:46 PM EST 06/04/2024 4:29 PM EST Narrative [facility] - 06/04/2024 5:23 PM EST The Siemens Advia [employer]yss Institute[employer] Chemiluminescent Immunoassay is used. Results obtained with different assay methods or kits cannot be used interchangeably. Results cannot be interpreted as absolute evidence of the presence or absence of malignant disease. us Roosevelt Ramirez MD LAB BLOOD ORDERABLES Final Resul t [facility] [address] [place] [address], [place] [phone] * Comprehensive metabolic panel (06/04/2024 3:46 PM EST) [facility] Sodium 141 133 - 145 mmol/L LAB CHEMISTRY METHOD 06/04/2024 5:08 PM EST [facility] Potassium 3.8 3.5 - 5.5 mmol/L LAB CHEMISTRY METHOD 06/04/2024 5:08 PM EST [facility] Chloride 108 96 - 110 mmol/L LAB CHEMISTRY METHOD 06/04/2024 5:08 PM EST [facility] CO2 28 21 - 32 mmol/L LAB CHEMISTRY METHOD 06/04/2024 5:08 PM EST [facility] Anion Gap 5 3 - 11 LAB CHEMISTRY METHOD 06/04/2024 5:08 PM [facility] Glucose 91 70 - 100 mg/dL LAB CHEMISTRY METHOD 06/04/2024 5:08 PM [facility] BUN 10 5 - 25 mg/dL LAB CHEMISTRY METHOD 06/04/2024 5:08 PM [facility] Creatinine 0.61 0.50 - 1.10 mg/dL LAB CHEMISTRY METHOD 06/04/2024 5:08 PM [facility] eGFR 98 >=60 mL/min/1. 73m2 LAB CHEMISTRY METHOD 06/04/2024 5:08 PM [facility] Comment:Calculation based on the??Chronic Kidney Disease Epidemiology Collaboration (CKD-EPI) equation refit??without adjustment for race. BUN/Creatinine Ratio 16.4 LAB CHEMISTRY METHOD 06/04/2024 5:08 PM [facility] Calcium 9.5 8.5 - 10.5 mg/dL LAB CHEMISTRY METHOD 06/04/2024 5:08 PM [facility] AST (SGOT) 25 10 - 42 unit/L LAB CHEMISTRY METHOD 06/04/2024 5:08 PM [facility] ALT (SGPT) 25 10 - 60 unit/L LAB CHEMISTRY METHOD 06/04/2024 5:08 PM [facility] Alkaline Phosphatase 84 42 - 121 unit/L LAB CHEMISTRY METHOD 06/04/2024 5:08 PM [facility] Total Protein 7.3 6.0 - 8.0 g/dL LAB CHEMISTRY METHOD 06/04/2024 5:08 PM [facility] Albumin 4.1 3.2 - 5.0 g/dL LAB CHEMISTRY METHOD 06/04/2024 5:08 PM [facility] Total Bilirubin 0.6 0.0 - 1.4 mg/dL LAB CHEMISTRY METHOD 06/04/2024 5:08 PM [facility] Blood Venous blood specimen / Unknown Venipuncture / Unknown 06/04/2024 3:46 PM EST 06/04/2024 4:29 PM EST us Roosevelt Ramirez MD LAB BLOOD ORDERABLES Final Resul t [facility] ([facility] [address] [place] [address], from Last 3 Months Insurance [facility] MEDIC[facility] Advance Directives * Full Code - Default (Latest Code Status on File) Date Activated Date Inactivated Comments 07/16/2024 8:39 AM 07/18/2024 3:19 PM This is order is used when code status has not been discussed with the patient, or code status is otherwise unknown/unconfirmed To update the patient's code status, place a code status order. Do not modify or discontinue any currently active code status orders. Care Teams Fitness And Wellness Manager Relationship Specialty Start Date End Date Nilam Piper MD PCP - General Internal Medicine 05/27/24
--- OUTSIDE RECORDS SUMMARY | 2024-08-20 10:44 | XMS_ITS | Encounter Summary ---
Author Organization [facility] Address [address] [place] [address] Care Team Providers Care Operating Room Aide Name Role Phone Nilam Piper MD Primary Care Provider Reason for Visit * Reason Onset Date Comments [facility] Genetic Testing 07/25/2024 Encounter Details Date Type Department Care Team (Late st Contact Info) Description 07/25/2024 Telephone [facility] Hematology Oncology [address] [place] [address] Nilam Piper MD [address] [place] [phone] [facility] Genetic Testing Social History Tobacco Use Types Packs/Day Years [...] AM EST documented as of this encounter Progress Notes * Eric Palacio RN - 08/12/2024 1:23 PM ESTAddended by: ERIC PALACIO on: 08/12/2024 01:23 PM Modules accepted: Orders * Eric Palacio RN - 08/12/2024 1:06 PM EST [place] Filter Press Tender - [place] [id number] With the use of a [place] Filter Press Tender, I explained the genetic testing process. Patient would like to proceed with [facility] genetic testing. [facility] [place] - CancerNext Expanded panel [facility]. Results take 3 - 4 weeks. * Eric Palacio RN - 08/06/2024 1:37 PM EST [place] Filter Press Tender - [place] ID [id number] Attempted to call Juliet [phone]. No answer. [place] child care worker left a VM. Requested she call the office back to further discuss genetic testing. * Eric Palacio RN - 08/05/2024 9:19 AM EST Patient completed the [facility] genetics questionnaire. NCCN criteria is not met. Patient notes familial history: Aunt (maternal) breast cancer age 76. * Eric Palacio RN - 07/25/2024 12:30 PM EST New patient appt 08/05/24. * Ramonita Whatley - 07/25/2024 11:56 AM EST 07/25/2024 [facility] email documented in this encounter Plan of Treatment Upcoming Encounters Date Type Department Care Team (Late st Contact Info) Description 08/22/2024 2:40 PM EST Office Visit [facility] [address] [place] [phone] Roosevelt Ramirez MD [address] [place] [address] 08/23/2024 8:00 AM EST Appointment [facility] Interventional Radiology [address] [place] [phone] 08/27/2024 8:00 AM EST Appointment [facility] Infusion Center [address] 2nd [place] [phone] 09/10/2024 10:15 AM EST Office Visit [facility] Hematology Oncology [address] [place] [phone] Desiree Sears DO [address] [place] [address] Scheduled Orders Name Type Priority Associated Diagnoses Orde r Schedule CancerNext Expanded panel [facility] - Miscellaneous Test Lab Routine Endometrial cancer (CMS/HCC) 1 Occurrences starting 08/12/2024 until 08/12/2025 documented as of this encounter Visit Diagnoses Diagnosis Endometrial cancer (CMS/HCC)- Primary Malignant neoplasm of corpus uteri, except isthmus documented in this encounter Care Teams Operating Room Aide Relationship Specialty Start Date End Date Nilam Piper MD PCP - General Internal Medicine 05/27/24 documented as of this encounter
--- OUTSIDE RECORDS SUMMARY | 2024-08-20 10:44 | XMS_ITS | Continuity of Care Document ---
Author Organization [facility] Address [address] [place] [address] Dr [address] [place] [phone] Phone Care Team Providers Care Cp Bleacher Operator Name Role Phone Joshua DIAZ FACS [...] E&M Established 15 Mins [facility], [address] [place] [address] [address], [id number], [place] tel:[phone] [facility] Body mass index (BMI) 27.0-27.9, adultVenous insufficiency (chronic) (peripheral) 3 Joshua DIAZ FACS RVLien Rosas. [address] [address], [place], [address], [place]. [phone] Referring Provider: Nilam Piper MD S, [address] [place] [address], [place], [address]. 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 [address] [place] [address], [address], [place], [address], [place]. tel:[phone] Referring Provider: Nilam Piper MD S, [address] [place] [address], [place], [address]. tel:[phone] [place] [facility], [address] [place] [address] [address], [id number], [place] tel:[phone] CVR - [facility] [place] Encntr for f/u exam aft trtmt for cond oth than malig neoplmVaricose veins of right lower extremities with pain 3 Joshua DIAZ FACS Lien Rosas. [address] [place] [address], [address], [place], [address], [place]. [phone] Referring Provider: Nilam Piper MD S, [address] [place] [address], [place], [address]. 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 [address] [place] [address], [address], [place], [address], [place]. [phone] Referring Provider: Nilam Piper MD S, [address] [place] [address], [place], [address]. 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 [address] [facility], [address], [place], [address], [place]. tel:[phone] Referring Provider: Nilam Piper MD S, [address] [place], [address]. tel:[phone] Family History Family Member Type Diagnosis Age At Onset No Information Payers Payer name Insurance type Covered democrat ID Jackson hyatt(s) [facility] [employer] [facility] CI [id number] Social History Type Description Quantity Date Captured [...]
[2024-08-20 14:10] LABS: Influenza A PCR POSITIVE (Negative); Influenza B PCR NEGATIVE (Negative); Resp Syncy Virus RNA Qual PCR NEGATIVE (Negative); SARS COV2 PCR INHOUSE NEGATIVE (Negative)
== END 2024-08-20 08:25 | disposition home or self-care (01) ==
LOC: HO.LAB 08:24
PROVIDERS: PCP Internal Medicine; Visit Provider Physician Assistant
DX: J06.9 Acute upper respiratory infection, unspecified (principal)
CPT/HCPCS: 0241U

== ENCOUNTER 2024-08-20 08:24 | Outpatient (AMB) | payer OTHER, SELFPAY ==
--- NOTE | 2024-08-20 09:09 | MHC.OFFWIV ---
Intake Vital Signs 08/20/24 09:16 Weight 178 lb BP 140/92 H Blood Pressure Location Rt brachial Position Sitting Pulse 72 Pulse Source Pulse Oximeter Temp 98.3 F Temp Source Oral Pulse Oximetry (%) 98 Oxygen Delivery Method Room Air Intake Visit Reasons: EP dry cough Intake Note: Patient here for dry cough, that has been present for about 1 week. she states she is currently receiving chemo therapy. Patient Tobacco Use Status: Never used Tobacco Allergies No Known Allergies Allergy (Verified 08/20/24 09:14) HPI HPI Comments History of Present Illness Details History - The patient is a 68-year-old female presenting with a dry cough starting one week ago. - She reports no fever, headache, sinus pain, ear pain, or fatigue associated with the cough. - The cough is described as dry and non-productive, with no seasonal or environmental triggers mentioned. - The patient has a history of ovarian cancer and is scheduled for chemotherapy next week, expressing concern regarding her respiratory status. - Recently visited [place], with potential exposure to influenza through her who tested + for Flu A last week. - Currently using a homeopathic remedy without significant symptom relief. - Her flu vaccination status is current for flu - Pt PCP sent Xofluza and pt picked it up but did not take it. Physical Exam General: Cooperative, healthy appearing, comfortable and no acute distress Orientation/consciousness: Patient oriented x3 Limitations: No limitations Head: Normal to inspection Ears: Hearing grossly normal bilaterally, external ears normal and TM's normal bilaterally Nose: Normal external nose present, Normal nares present and No nasal discharge present Face and sinus: Normal facial exam and Yes sinuses nontender Mouth: Normal oral and palatal mucosa present and moist mucous membranes Throat: Yes tonsils normal, Yes uvula midline. Posterior oropharynx erythema Eyes: Appearance normal, both eyes and all related structures Neck: Normal visual inspection Respiratory: Clear to auscultation bilaterally. Normal respiratory effort, able to speak in complete sentences, no respiratory distress, not tachypneic, no tripod positioning and no use of accessory muscles Cardiovascular: Regular rate and rhythm. Normal S1 and S2 Skin: No rashes or lesions noted Neuro: Patient oriented x3 Extremities: Normal to inspection and Yes no clubbing, cyanosis or edema PFSH Medical History (Updated 08/20/24 @ 09:37 by Joselyn Carpenter PA-C) Venous insufficiency Annual physical exam Trochanteric bursitis Mammogram declined Pap smear of cervix declined HTN (hypertension) Vitamin D deficiency Hyperlipidemia Surgical History History of removal of cyst (04/14/22) History of left oophorectomy H/O colonoscopy Family History Mother Stroke Father Hypertension Social History Housing: House Alcohol intake: never Patient Tobacco Use Status: Never used Tobacco e-Cigarette/Vaping Use: Never Used Second Hand Smoke Exposure: No service: No Current occupational status: employed 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 [employer] Cognitive needs: No Hearing needs: No Vision needs: Yes Review of Systems Const All systems reviewed & are unremarkable except as noted in HPI and below Physical Exam Vital Signs: Last Vital Signs Temp 98.3 F 08/20/24 09:16 Pulse 72 08/20/24 09:16 BP 140/92 H 08/20/24 09:16 Pulse Ox 98 08/20/24 09:16 Oxygen Delivery Method Room Air 08/20/24 09:16 Assessment & Plan Assessment & Plan (1) URI, acute: Code(s): J06.9 - Acute upper respiratory infection, unspecified Plan: Plan The patient is advised to manage her persistent dry cough with [id number] medications, saline gargles, and warm tea with honey, pending results of the viral infection tests influenza, COVID-19, RSV. The use of Zofluza is deferred until influenza is confirmed. Given the patient's clear lung auscultation, VSS, pt well appearing and PE unremarkable, chest imaging is not required at this time. The patient's respiratory health is closely monitored, considering her ongoing chemotherapy. The patient exhibits no acute respiratory distress or signs of systemic illness, maintaining stable oxygen levels at 98%. Continuation of chemotherapy as planned is expected upon clearance, ensuring no respiratory complications arise. Patient was informed and verbally consented to the use of an ambient scribe for clinic note documentation during this visit Orders: Orders SARS-CoV2/FLU/RSV Today J06.9 - Acute upper respiratory infection, unspecified Coding Level of Care Code Est Pt Level 3 (82461) Diagnoses URI, acute J06.9
[2024-08-20 09:16] VITALS: BP 140/92; PULSE 72; TEMP 36.8; O2SAT 98
== END 2024-08-20 09:47 | disposition home or self-care (01) ==
PROVIDERS: PCP Internal Medicine; Visit Provider Physician Assistant
DX: J06.9 Acute upper respiratory infection, unspecified (principal)

== ENCOUNTER → 2024-08-22 09:27 | Outpatient (REF) | payer OTHER, SELFPAY ==
--- NOTE | 2024-08-22 09:33 | CA_ITS ---
Acquisition Time: 2024-08-22 09:49:31 Total Exercise Time: 00:07:20 Test Indications: Abnormal ECG,Pre-Op Evaluation Medications: AMLODIPINE HCTZ NAPROXEN SERTRALINE Protocol: ABDULAZIZ Max HR: 146 BPM 95% of Pred: 153 BPM Max BP: 220/90 mmHG Max Work Load: 4.6 METS Exercise Stress Test with exercise 5 mins 20 secs of Abdulaziz Protocol, held at Stage 1 (started late at 2 mins due to issues with walking on treadmill initially however pt wanted to try again and was able to continue with the test), achieving 95% MPHR, with reports of moderate SOB, no chest discomfort, with isolated PACs, frequent isolated PVCs, ventricular couplets and one ventricular triplet, with hypertensive response - max BP 220/90. With J point depression ST upsloping, nonspecific ST-T waves at baseline. In recovery, breathing returned to baseline. BP improved to baseline 148/82 ( has not been taking her HCTZ). Nuclear images pending. Test reviewed with Dr. Guthrie. Referred By: Nilam Piper Electronically Signed By: Jaime Kingsley
--- OUTSIDE RECORDS SUMMARY | 2024-08-22 09:49 | XMS_ITS | Encounter Summary ---
Author Organization [facility] Address [address] [place] [address] Care Team Providers Care Publications Manager Name Role Phone Nilam Piper MD Primary Care Provider Reason for Referral * Imaging (Routine) - Authorized Specialty Diagnoses / Procedures Referred By Contac t Referred To Contact Radiology Diagnoses Endometrial cancer (CMS/HCC) Procedures IR Insert Tunneled CVAD w Subq Port More 5yrs Right Desiree Sears DO [address] [place] [address] Phone: tel: fax: [facility] Referral ID Status Reason Start Date Expiration Date V isits Requested Visits Authorized [id number] Authorized 08/05/2024 08/05/2025 1 1 Reason for Visit * Reason Comments Consult * Consultation (Routine) - Authorized Specialty Diagnoses / Procedures Referred By Contac t Referred To Contact Hematology and Oncology Diagnoses Uterine mass Endometrial cancer (CMS/HCC) Roosevelt Ramirez MD [address] [address] Phone: tel: fax: [facility] Hematology Oncology [address] [place] [address] Phone: tel: fax: Referral ID Status Reason Start Date Expiration Date Visits Requested Visits Authorized [id number] Authorized Specialty Services Required 08/02/2024 08/01/2025 6 6 Encounter Details Date Type Department Care Team (Late st Contact Info) Description 08/05/2024 3:00 PM EST Office Visit [facility] Hematology Oncology [address] [place] [phone] Desiree Sears DO [address] [place] [address] Uterine mass; Endometrial cancer (CMS/HCC) Social History [...] Signed Date: 06/21/2024 13:47 ET Workstation ID: [id number] Transcribed By: Self Edit Transcribed Date: 06/21/2024 [...] FIGO Stage IICm ([id number]) FIGO Modified Classification [id number] . Assessment & Plan 68 year old [...] oncology, this will be placed by Dr Ashley Mehta in 3-4 weeks prior to second cycle of chemotherapy Recommend also evaluation for [facility] genetic testing Pulmonary nodules Radiology recommends 6 mo follow up , defer to PCP Sign: Che Sears DO Hematology/Oncology [facility] [phone] documented in this encounter Plan of Treatment Upcoming Encounters Date Type Department Care Team (Late st Contact Info) Description 08/23/2024 8:00 AM EST Appointment [facility] Interventional Radiology [address] [place] [phone] 08/27/2024 8:00 AM EST Appointment [facility] Infusion Center [address] [place] [phone] 09/10/2024 10:15 AM EST Office Visit [facility] Hematology Oncology [address] [place] [phone] Desiree Sears DO [address] [place] [phone] Scheduled Orders Name Type Priority Associated Diagnoses [...] 1 documented in this encounter Care Teams Publications Manager Relationship Specialty Start Date End Date Nilam Piper MD PCP - General Internal Medicine 05/27/24 08/19/24 documented as of this encounter
--- OUTSIDE RECORDS SUMMARY | 2024-08-22 09:49 | XMS_ITS | Data Portability ---
Author Organization [place] [facility], Allergy Address [address] [place] [phone] Care Team Providers Care Core Shaper Sides Name Role Phone ARACELIKAMILLEAndreaEUGENE Primary Care Provider [phone] Assessment Encounter Date Assessment Date Assessment LastModified by Organization Details LastModified Time 12/11/2023 12/11/2023 Nasal examination today did not identify a prominent bleeding source to better explain their history of epistaxis. Recommend medical management with saline nasal spray 3 times daily, K-Y jelly at night, Afrin with episodes of bleeding and packing the nose with Bleed Cease (available OTC) if any additional bleeding. May use Ponaris Nasal Emollient 1/2 dropper twice daily as needed with dryness. If taking antiplatelet or anticoagulant therapy discuss holding with prescribing provider. Return to office as needed or go to emergency room if severe episodes She has a prominent caudal deflection to the right which is related to previous trauma in [facility] from many years ago. I do not believe this will be resolved with my surgical technique of septoplasty and would therefore refer her to plastic surgeon at [facility] for consideration of open septorhinoplasty . [email or web address] Not available 12/11/2023 15:40:13 Plan of Treatment Reminders Order Date Submit Date Provider Last Modified By Organization Details Last Modified Time Details Appointments None recorded. Lab None recorded. Referral plastic surgeon referral - Referral for caudal deflection of nasal septum from trauma. Thank you. 2023 Juwan Lewis MD [facility], [address] [place] [address] [place], [address], 12:30:23 Procedures None recorded. Surgeries None recorded. Imaging None recorded. Medication Orders None recorded. Patient TargetsNo targets recorded. Patient InstructionsNo instructions recorded. Reason for Referral Plastic Surgeon Referral for Deviated nasal septum Referral for caudal deflection of nasal septum from trauma. Thank you. Referring Physician: Niall Felix, Otolaryngology, Encounter Date: 12/11/2023 Problems Name Problem SNOMED Code Status Onset Date Resolution Date Notes Provider Name and Address Organization Details Recorded Time Bleeding from nose 417956604 Active 2022 Epistaxis; Note: Date Diagnosed: 08/04/2022 9:47 AM (R04.0) Note: Date Diagnosed: 08/04/2022 9:47 AM (R04.0) Epistaxi s; Note: Date Diagnosed: 05/26/2020 9:49 AM (R04.0) Note: Date Diagnosed: 05/26/2020 9:49 AM (R04.0) ; Start Date : 05/26/2020 NIALL FELIX MD [address] [place] [address],[place] [address], [place], [phone] , [place] [facility] 4 15:30:19 Disorder of nasal sinus 8931958 Active 2020 Other specified disorders of nose and nasal sinuses; Note: Date Diagnosed: 02/11/2021 1:33 PM (J34.89) Not Available [facility] 4 03:23:52 Disorder of the nose 49545283 Active 2020 Other specified disorders of nose and nasal sinuses; Note: Date Diagnosed: 02/11/2021 1:33 PM (J34.89) Not Available [facility] 4 03:23:52 Deviated nasal septum 948822432 Active 2019 Deviated nasal septum; Note: Date Diagnosed: 05/26/2020 9:49 AM (J34.2) Note: Date Diagnosed: 05/26/2020 9:49 AM (J34.2) NIALL FELIX MD [address] [place] [address],[place] [address], [place], [phone] , [facility] - [facility] 4 15:30:19 Hypertrop hy of nasal turbinate s 32521572 Active 2019 Hypertroph y of nasal turbinates ; Note: Date Diagnosed: 05/26/2020 9:49 AM (J34.3) Not Available [facility] 4 03:23:51 Anterior epistaxis 708936707 Active 2023 NIALL FELIX MD [address] [place] [address], [place], [phone] , [facility] - [facility] 4 15:38:14 Problem Notes None recorded. Medical Equipment None Reported. Medications Name Sig Start Date Stop Date Status Note LastModified by Organization Details LastModified Time prednison e 10 mg tablet TAKE 4 TABLETS BY MOUTH EVERY DAY FOR 5 DAYS active Not Available Not Available No t Available amlodipin e 2.5 mg tablet 08/04 completed Medicati on ID: [id number] B rand Name: amlodipi ne Send Method: E-Prescr ibed Sub s Allowed: subs OK Medic ationGen ericName : amlodipi ne Not Available Not Available Not Available amlodipin e 5 mg tablet active Medicati on ID: [id number] B rand Name: amlodipi ne Send Method: E-Prescr ibed Sub s Allowed: subs OK Medic ationGen ericName : amlodipi ne Not Available Not Available Not Available sulfameth oxazole 800 mg-trimet hoprim 160 mg tablet TAKE 1 TABLET BY MOUTH TWICE A DAY FOR 3 DAYS active Not Available Not Available No t Available sertralin e 25 mg tablet active Medicati on ID: [id number] B rand Name: sertrali ne Send Method: E-Prescr ibed Sub s Allowed: subs OK Medic ationGen ericName : sertrali ne Not Available Not Available Not Available pravastat in 20 mg tablet TAKE 1 TABLET BY MOUTH EVERY DAY active Not Available Not Available No t Available hydrochlo rothiazid e 25 mg tablet TAKE 1 TABLET BY MOUTH DAILY active Not Available Not Available No t Available ibuprofen 600 mg tablet active Medicati on ID: [id number] B rand Name: ibuprofe n Send Method: E-Prescr ibed Sub s Allowed: subs OK Medic ationGen ericName : ibuprofe n Not Available Not Available Not Available estradiol 0.01% (0.1 mg/gram) vaginal cream APPLY 1/2 G NIGHTLY BEFORE BED FOR 3 WEEKS, THEN TWICE WEEKLY active Not Available Not Available No t Available naproxen 500 mg tablet TAKE 1 TABLET BY MOUTH TWICE A DAY active Not Available Not Available No t Available hydrochlo rothiazid e 12.5 mg tablet active Medicati on ID: [id number] B rand Name: naomi orothiaz nawaf Send Method: E-Prescr ibed Sub s Allowed: subs OK Medic ationGen ericName : hydrochl orothiaz nawaf Not Available Not Available Not Available Vitals Date Recorded Body height Body mass index (BMI) Body weight Provider Name and Address Organization Details Last Updated DateTime 12/11/2023 175.26 cm 19.2 kg/m2 01467.01 g Ya Peralta [place] - [facility] 12/11/2023 15:27:33 Social History None recorded. Functional Status None recorded. Mental Status None recorded. Family History Nothing Reported. Medical History No medical history recorded. Gynecological HistoryNo gynecological history recorded. Obstetrics History GPAL:G 0 P 0 0 0 0 Past Encounters Encounter ID Performer Location Encounter Start Date Encounter Closed Date Diagnosis/Indication Diagnosis SNOMED-CT Code Diagnosis ICD10 Code Diagnosis Note [id number] NIALL FELIX MD [facility] [address] [phone] 12/11/2023 14:49:24 12/11/2023 15:40:38 Anterior epistaxis 055571663 R04.0 Deviated nasal septum 12 1211366 J34.2 Health Concerns Section Related Observation LastModified by Organization Detai ls LastModified Time None Recorded Concern Status LastModified by Organization Details LastModified Time None Recorded Advance Directives Directive None Recorded Payers Encounter Date Sequence Insurance Name Policy Number Policy Pierce Covered Member ID Pierce Member ID Guarantor Name 12/11/2023 1 [facility] [id number] Juliet Kruse [id number] Juliet Kruse Notes Date Note Type Note Provider Name and Address Organization Details Recorded Time 12/11/2023 text/html right nasal congestionhas been present for many years, worse in summertried nasal strips at night with no reliefno trial of nose sprays most recent epistaxis about [address] Leong treated with cautery on left.most recent bleed 3 weeks ago, lasting 10 minutesno use of blood thinners NIALL FELIX MD [address] [place] [address], [place], [phone], [facility] - [facility] 12/11/2023 15:40:31 OBGyn Episode No OBEpisode recorded.
--- OUTSIDE RECORDS SUMMARY | 2024-08-22 09:49 | XMS_ITS | Encounter Summary ---
Author Organization [facility] Address [address] [place] [address] Care Team Providers Care Open Hearth Door Liner Name Role Phone Nilam Piper MD Primary Care Provider [phone] Reason for Referral * Consultation (Routine) - Authorized Specialty Diagnoses / Procedures Referred By Contac t Referred To Contact Hematology and Oncology Diagnoses Uterine mass Endometrial cancer (CMS/HCC) Roosevelt Ramirez MD [address] [place] [address] Phone: tel: fax: [facility] Hematology Oncology [address] [place] [phone] Phone: tel: fax: Referral ID Status Reason Start Date Expiration Date Visits Requested Visits Authorized [id number] Authorized Specialty Services Required 08/02/2024 08/01/2025 6 6 * Consultation (Routine) - Pending Review Specialty Diagnoses / Procedures Referred By Contac t Referred To Contact Radiation Oncology Diagnoses Uterine mass Endometrial cancer (CMS/HCC) Roosevelt Ramirez MD [address] [place] [address] Phone: tel: fax: [address] Phone: tel: Referral ID Status Reason Start Date Expiration Date Visits Requested Visits Authorized [id number] Pending Review Specialty Services Required 07/25/2024 07/25/2025 1 1 Reason for Visit * Reason Comments Post-op Encounter Details Date Type Department Care Team (Late st Contact Info) Description 07/25/2024 10:00 AM EST Office Visit [facility] [address] [place] [phone] Roosevelt Ramirez MD [address] [place] [address] Endometrial cancer (CMS/HCC) (Primary Dx) Social History [...] (MSIH) Addendum This case was sent to [facility], [address] [place], [place], (CLIA #[id number]) for HER2 (Other) - with Breast Scoring [...] FIGO Stage IICm (p53abn) FIGO Modified Classification os18ubq HISTORY: Surgical history updated. No interval change [...] lymphovascular invasion. The tumor is ER positive, IN positive, p53 abnormal, HER2/adriana 2+, FISH negative, [...] referred to Medical Oncology at [facility] for consultation and treatment. Referral placed to Radiation Oncology at [facility]. The patient will return in 3-4 weeks for postop evaluation and pelvic exam. It was a pleasure seeing Ms. Juliet Kruse at [facility] today. The patient has been instructed to call with any additional questions or concerns. Roosevelt Ramirez MD [facility] [address] [address] CC: Nilam Sears documented in this encounter Plan of Treatment Upcoming Encounters Date Type Department Care Team (Late st Contact Info) Description 08/23/2024 8:00 AM EST Appointment [facility] Interventional Radiology [address] [place] [phone] 08/27/2024 8:00 AM EST Appointment [facility] Infusion Center [address] [place] [phone] 09/10/2024 10:15 AM EST Office Visit [facility] Hematology Oncology [address] [place] [phone] Desiree Sears DO [address] [place] [address] Scheduled Referrals Name Type Priority Associated Diagnoses [...] isthmus documented in this encounter Care Teams Open Hearth Door Liner Relationship Specialty Start Date End Date Nilam Piper MD PCP - General Internal Medicine 05/27/24 08/19/24 documented as of this encounter
--- OUTSIDE RECORDS SUMMARY | 2024-08-22 09:49 | XMS_ITS | Encounter Summary ---
Author Organization [facility] Address [address] [place] [address] Care Team Providers Care Automobile Body Repairer Name Role Phone Nilam Piper MD Primary Care Provider [phone] Reason for Visit * Reason Onset Date Comments [facility] 07/25/2024 Encounter Details Date Type Department Care Team (Late st Contact Info) Description 07/25/2024 Telephone [facility] Hematology Oncology [address] [place] [address] Nilam Piper MD [address] [place] [phone] [facility] Social History Tobacco Use [...] Palacio RN - 08/12/2024 1:06 PM EST [employer] Research/Program Director - [place] [id number] With the use of a Kazakh Research/Program Director, I explained the genetic testing process. Patient would like to proceed with [facility] genetic testing. [facility] lab order has been placed - CancerNext Expanded panel [facility]. Results take 3 - 4 weeks. * Eric Palacio RN - 08/06/2024 1:37 PM EST [employer] Research/Program Director - [place] [id number] Attempted to call Juliet [phone]. No answer. Kazakh paster operator left a VM. Requested she call the office back to further discuss genetic testing. * Eric Palacio RN - 08/05/2024 9:19 AM EST Patient completed the [facility] genetics questionnaire. NCCN criteria is not met. Patient notes familial history: Aunt (maternal) breast cancer age 76. * Eric Palacio RN - 07/25/2024 12:30 PM EST New patient appt 08/05/24. * Ramonita Whatley - 07/25/2024 11:56 AM EST 07/25/2024 [facility] - using email documented in this encounter Plan of Treatment Upcoming Encounters Date Type Department Care Team (Late st Contact Info) Description 08/23/2024 8:00 AM EST Appointment [facility] Interventional Radiology [address] [place] [address] 08/27/2024 8:00 AM EST Appointment [facility] Infusion Center [address] [phone] 09/10/2024 10:15 AM EST Office Visit [facility] Hematology Oncology [address] [place] [address] Desiree Sears, DO [address] [place] [address] Scheduled Orders Name Type Priority Associated Diagnoses Orde r Schedule CancerNext Expanded panel [facility] - Miscellaneous Test Lab Routine Endometrial cancer (CMS/HCC) 1 Occurrences starting 08/12/2024 until 08/12/2025 documented as of this encounter Visit Diagnoses Diagnosis Endometrial cancer (CMS/HCC)- Primary Malignant neoplasm of corpus uteri, except isthmus documented in this encounter Care Teams Automobile Body Repairer Relationship Specialty Start Date End Date Nilam Piper MD PCP - General Internal Medicine 05/27/24 08/19/24 documented as of this encounter
--- OUTSIDE RECORDS SUMMARY | 2024-08-22 09:49 | XMS_ITS | Clinical Summary ---
Author Organization [facility] Address [address] [place] [address] Phone Care Team Providers Care Mess Attendant Crew Name Role Phone Nilam Piper MD Primary Care Provider [phone] Allergies No known active allergies Medications amLODIPine [...] 08/05/2024 3:00 PM EST Office Visit [facility] Hematology Oncology [address] [place] [phone] Desiree Sears DO Uterine mass; Endometrial cancer ([facility]/HCC) 07/25/2024 10:00 AM EST Office Visit [address] [phone] Roosevelt Ramirez MD Endometrial cancer ([facility]/HCC) (Primary Dx) 07/25/2024 Telephone [facility] Hematology Oncology [address] [place] [phone] Nilam Piper MD Amb Genetic Testing 07/16/2024 10:48 AM EST Anesthesia Event [address] [phone] Joanie Urena MD 07/16/2024 10:15 AM EST - 07/16/2024 1:45 PM EST Surgery [address] [phone] Roosevelt Ramirez MD Exploratory laparotomy, removal of pelvic mass, total abdominal hysterectomy, left salpingo-oophorectom y [[id number] (CPT??)] 07/16/2024 8:33 AM EST - 07/18/2024 1:07 PM EST Hospital Encounter [facility] Medical Surgical Unit [address] [place] [address] Roosevelt Ramirez MD Mass of uterus determined by ultrasound; PMB (postmenopausal bleeding) Discharge Disposition: Home or Self Care 06/27/2024 1:40 PM EST Office Visit [address] [phone] Roosevelt Ramirez MD Uterine mass (Primary Dx); Language barrier; PMB (postmenopausal bleeding); Transfusion of blood product refused for mormon reason 06/20/2024 3:45 PM EST - 06/20/2024 11:59 PM EST Hospital Encounter [facility] CT Scan [address] [place] [address] Mass of uterus determined by ultrasound Discharge Disposition: Home or Self Care 06/20/2024 3:29 PM EST - 06/20/2024 11:59 PM EST Hospital Encounter [facility] CT Scan [address] [place] [phone] Pelvic mass Discharge Disposition: Home or Self Care 06/12/2024 Telephone Obstetrics & Gynecology [address] [address] Tenisha Llanos CNM prior authorization 06/04/2024 1:20 PM EST Consult [address] [address] Roosevelt Ramirez MD Pelvic mass (Primary Dx); PMB (postmenopausal bleeding); Language barrier 05/27/2024 Telephone Obstetrics & Gynecology [address] [address] Tenisha Llanos CNM from Last 3 Months Surgical History Surgery [...] Description 08/23/2024 8:00 AM EST Appointment [facility] Interventional Radiology [address] [place] [address] 08/27/2024 8:00 AM EST Appointment [facility] Infusion Center [address] [address] 09/10/2024 10:15 AM EST Office Visit [facility] Hematology Oncology [address] [place] [address] Desiree Sears, DO [address] [place] [address] Health Maintenance Due Date Last Done Comments Breast Cancer Screening 1955 DTaP,Tdap,and Td Vaccines (1 - Tdap) 10/23/1975 Hepatitis A Vaccines (1 of 2 - [...] ENDOTRACHEAL(NO CHARGE) Routine 07/16/2024 11:38 AM EST [place] TOTAL ABDOMINAL HYSTERECTOMY W/WO REMOVAL OF TUBE/OVARY 07/16/2024 10:48 AM EST Uterine mass PMB (postmenopausal bleeding) Case Notes Inpt,[place]izen [place] per diem interpreter needed SST - GOLD Routine 07/11/2024 9:15 [...] LAB Basophils Absolute 0.01 0.00 - 0.20 K/mcL LAB HEMETOLOGY METHOD 07/17/2024 7:51 AM [facility] Immature Granulocytes Absolute 0.02 0.00 - 0.03 K/mcL LAB HEMETOLOGY METHOD 07/17/2024 7:51 AM [facility] Blood Venous blood specimen / Unknown Venipuncture / Unknown 07/17/2024 7:00 AM EST 07/17/2024 7:29 AM EST Mattie BAGLEY LAB BLOOD ORDERABLES Final R esult Performing Organization Address City/[facility]/ZIP Co de Phone Number [facility] [address] [place] [address], [place] [phone] * Phosphorus (07/17/2024 7:00 AM EST) Phosphorus 3.5 2.5 - 4.5 mg/dL LAB CHEMISTRY METHOD 07/17/2024 8:22 AM EST [facility] Blood Venous blood specimen / Unknown Venipuncture / Unknown 07/17/2024 7:00 AM EST 07/17/2024 7:29 AM EST Mattie BAGLEY LAB BLOOD ORDERABLES Final R esult Performing Organization Address [facility] Co de Phone Number [facility] [address] [place] [address], [place] [phone] * Magnesium (07/17/2024 7:00 AM EST) Magnesium 2.2 1.9 - 2.6 mg/dL LAB CHEMISTRY METHOD 07/17/2024 8:22 AM EST [facility] Blood Venous blood specimen / Unknown Venipuncture / Unknown 07/17/2024 7:00 AM EST 07/17/2024 7:29 AM EST Mattie BAGLEY LAB BLOOD ORDERABLES Final R esult Performing Organization Address City/[facility]/ZIP Co de Phone Number [facility] [address] [place] [address], [place] [phone] * (ABNORMAL) Basic metabolic panel (07/17/2024 7:00 AM EST) Sodium 138 133 - 145 mmol/L LAB CHEMISTRY METHOD 07/17/2024 8:22 AM EST [facility] Potassium 3.9 3.5 - 5.5 [...] 07/17/2024 8:22 AM [facility] Blood Venous blood specimen / Unknown Venipuncture / Unknown 07/17/2024 7:00 AM EST 07/17/2024 7:29 AM EST us Mattie BAGLEY LAB BLOOD ORDERABLES Final R esult [facility] [address] [place] [address], * Tissue exam (07/16/2024 11:58 AM EST) Only the most recent of2 resultswithin the time period is included. Addendum This case was sent t o [employer], [address], [place], [place], (CLIA #[id number]) for HER2 (Other) - with Breast Scoring [...] ET (Full report on file) 11:00 AM [facility] Addendum electronically signed by [...] Left fallopian tube without atypia or neoplasm 11:00 AM [facility] Comment The preliminary findings were discussed with Dr. Ramirez on 07/16/24. She was notified of the final diagnosis via secure chat on 07/22/24. 11:00 AM EST [facility] Gross Description A. Uterus, uterus, [...] madera yellow focus. Digital photographs are taken. Teleprinter Installer sections are submitted in thirty-eight cassettes. 1-anterior [...] with mass (25, 26 and 27-28 bisected lnfyb-neoeurg-snytd green where bisected, 29-contains just nodule-no mass), [...] entirety, three pieces TS/A3L 5 11:00 AM [facility] Special Stains In block A12, a [...] Staining evaluation ER: Positive= >1% positive nuclei MI: Staining evaluation MI: Positive= >1% positive nuclei HER2: Staining evaluation for HER2 (2018 Clinical Trial Criteria, Yumiko Mendez et al, 2020): - NEGATIVE (0): No [...] In vitro diagnostic use: ER clone SP1 Cell Akhil, MI clone 16 Leica, MLH1 [id number] Leica, MSH2 clone [id number] Leica, MSH6 clone EP49 Leica, PMS2 clone EP51 Leica, p53 clone DO-7 Leica Analyte specific reagents: HER2 clone EP3 Biocare 5 11:00 AM EST [facility] Synoptic Checklist ENDOMETRIUM ENDOMETRIUM - [...] Stage: ?IICm (p53abn) ?? FIGO Modified Classification: ?nc86mfo 5 11:[address] [facility] Disclaimer NOTE: The immunohistochemical tests and in situ hybridization tests were developed and their performance characteristics were determined by [facility]ology Laboratory. They have not been [...] fixed and paraffin embedded. 11:00 AM EST [facility] Tissue Uterine structure / Unknown 07/16/2024 11:58 AM EST 07/16/2024 2:36 PM EST us Roosevelt Ramirez MD LAB PATHOLOGY ORDERABLES Edited Result - Final [facility] [address] [place] [address], * HER-2 ADRIANA, FISH (07/16/2024 11:58 AM EST) Scan Result See Scanned Result 07/29/2024 4:23 PM EST EXTERNAL LAB (NON-INTERFAC ED) Tissue Uterine structure / Unknown 07/16/2024 11:58 AM EST 07/23/2024 5:23 AM EST us Roosevelt Ramirez MD LAB CYTOGENETICS ORDERABLES Rosanna l Result EXTERNAL LAB (NON-INTERFACED) * Peripheral IV (07/16/2024 11:42 AM EST) Narrative Sury Beaulieu CRNA - 07/16/2024 11:42 AM EST Sury Beaulieu CRNA ? 07/16/2024 11:43 AM Peripheral IV Inserted by: JAMILA Calle Needle size: 18 G Laterality: left Location: [...] Hold for add-ons. 07/11/2024 11:01 AM EST [facility] Comment:Auto resulted. Blood Venous blood specimen / Unknown 07/11/2024 9:15 AM EST 07/11/2024 9:35 AM EST Roosevelt Ramirez MD LAB BLOOD ORDERABLES Final Resul t [facility] [address] [place] [address], [place] [phone] * Activated partial thromboplastin time (07/11/2024 9:03 AM EST) aPTT 33.7 24.1 - 39.3 sec LAB COAGULATION METHOD 07/11/2024 10:11 AM EST [facility] Blood Venous blood specimen / Unknown Venipuncture / Unknown 07/11/2024 9:03 AM EST 07/11/2024 9:32 AM EST us Roosevelt Ramirez MD LAB BLOOD ORDERABLES Final Resul t [facility] [address] [place] [address], [place] [phone] * Prothrombin time with INR (07/11/2024 9:00 AM EST) Pathologist [facility] Protime 11.5 10.6 - 13.9 sec LAB COAGULATION METHOD 07/11/2024 10:11 AM EST [facility] INR 0.9 LAB COAGULATION METHOD 07/11/2024 10:11 AM EST [facility] Blood Venous blood specimen / Unknown Venipuncture / Unknown 07/11/2024 9:00 AM EST 07/11/2024 9:32 AM EST us Roosevelt Ramirez MD LAB BLOOD ORDERABLES Final Resul t [facility] [address] [place] [address], [place] [phone] * ECG 12 lead - Procedural (No Charge) (07/11/2024 8:56 AM EST) Ventricular Rate ECG 77 BPM GEMUSE Atrial Rate 77 BPM GEMUSE P-R Interval 164 ms GEMUSE QRS Duration 94 ms GEMUSE Q-T Interval 406 ms GEMUSE QTc 459 ms GEMUSE P Wave [place] 57 degrees GEMUSE R [place] -4 degrees GEMUSE T [place] 17 degrees GEMUSE ECG Interpretation Normal sinus rhythm Possible Left atrial enlargement Cannot rule out Anterior infarct , age undetermined Abnormal ECG No previous ECGs available Confirmed by MD Delacruz Christopher ([id number]) on 07/11/2024 5:33:39 PM GEMUSE 07/11/2024 8:56 [...] Signed Date: 06/21/2024 13:47 ET Workstation ID: [id number] Transcribed By: Self Edit Transcribed Date: 06/21/2024 [...] Signed Date: 06/21/2024 13:47 ET Workstation ID: [id number] Transcribed By: Self Edit Transcribed Date: 06/21/2024 13:06 ET Tenisha Llanos [facility] CT PROCEDURES Final Resul t * CT [...] Signed Date: 06/21/2024 13:47 ET Workstation ID: [id number] Transcribed By: Self Edit Transcribed Date: 06/21/2024 [...] Signed Date: 06/21/2024 13:47 ET Workstation ID: [id number] Transcribed By: Self Edit Transcribed Date: 06/21/2024 13:06 ET Roosevelt Ramirez MD IMG CT PROCEDURES Final Result * Cancer antigen 19-9 (06/04/2024 3:46 PM EST) CA 19-9 17.8 <=35 U/mL 06/10/2024 11:10 AM EST [facility] Comment: The Siemens Advia Centaur CA199 Chemiluminescent Immunoassay is used. Results obtained with different assay methods or kits cannot be used interchangeably. Results cannot be interpreted as absolute evidence of the presence or absence of malignant disease. Test performed at [facility], [address] , [place], [place] ??[address] ? [phone] Genevieve Angel MD, PhD - Plumbing Contractor Blood Venous blood specimen / Unknown Venipuncture / Unknown 06/04/2024 3:46 PM EST 06/04/2024 4:27 PM EST us Roosevelt Ramirez MD LAB BLOOD ORDERABLES Final Resul t Performing Organization Address [facility] Co de Phone Number [facility] [address] [place] [address] * Cancer antigen 125 (06/04/2024 3:46 PM EST) CA 125 19.6 <35.0 unit/mL LAB CHEMISTRY METHOD 06/04/2024 5:45 PM EST [facility] Blood Venous blood specimen / Unknown Venipuncture / Unknown 06/04/2024 3:46 PM EST 06/04/2024 4:29 PM EST Narrative [facility] - 06/04/2024 5:45 PM EST The Siemens Advia Centaur Chemiluminescent Immunoassay is used. Results obtained with different assay methods or kits cannot be used interchangeably. Results cannot be interpreted as absolute evidence of the presence or absence of malignant disease. us Roosevelt Ramirez MD LAB BLOOD ORDERABLES Final Resul t Performing Organization Address City/[facility]/ZIP Co de Phone Number [facility] [address] [place] [address], * CEA (06/04/2024 3:46 PM EST) CEA 2.5 0.0 - 5.0 ng/mL LAB CHEMISTRY METHOD 06/04/2024 5:23 PM [facility] Blood Venous blood specimen / Unknown Venipuncture / Unknown 06/04/2024 3:46 PM EST 06/04/2024 4:29 PM EST [facility] - 06/04/2024 5:23 PM EST The Siemens Advia Centaur Chemiluminescent Immunoassay is used. Results obtained with different assay methods or kits cannot be used interchangeably. Results cannot be interpreted as absolute evidence of the presence or absence of malignant disease. us Roosevelt Ramirez MD LAB BLOOD ORDERABLES Final Resul t [facility] [address] [place] [address], [place] [phone] * Comprehensive metabolic panel (06/04/2024 3:46 PM EST) Sodium 141 133 - 145 mmol/L LAB CHEMISTRY METHOD 06/04/2024 5:08 PM [facility] Potassium 3.8 3.5 - 5.5 mmol/L LAB CHEMISTRY METHOD 06/04/2024 5:08 PM [facility] Chloride 108 96 - 110 mmol/L LAB CHEMISTRY METHOD 06/04/2024 5:08 PM [facility] CO2 28 21 - 32 mmol/L LAB CHEMISTRY METHOD 06/04/2024 5:08 PM [facility] Anion Gap 5 [...] MD LAB BLOOD ORDERABLES Final Resul t [facility] [address] [place] [address], [place] [phone] from Last 3 Months Insurance [facility]IC[facility] Advance Directives * Full Code - [...] currently active code status orders. Care Teams Mess Attendant Crew Relationship Specialty Start Date End Date Nilam Piper MD [address] [place] [address] PCP - General Internal Medicine 08/20/24
--- OUTSIDE RECORDS SUMMARY | 2024-08-22 09:50 | XMS_ITS ---
Author Organization [facility] Address [address] [place] [address] Phone Care Team Providers Care Supervisor Treating And Pumping Name Role Phone Nilam Piper MD Primary Care Provider [phone] Active Problems Problem Noted Date Diagnosed Date Endometrial cancer 08/05/2024 Cancer Staging:Pathologic:FIGO Stage IIC, calculated as Stage Unknown(pT2, pNX, cM0) - Unsigned PMB (postmenopausal bleeding) 05/23/2024 Pelvic mass 05/23/2024 Current Oncology Plans PACLitaxel / CARBOplatin - Uterine Cancer* Plan Start Date:08/18/2024 Plan Provider:Desiree Sears, Linked Problems Endometrial cancer ([facility]) Treatment Medications Current Day (Day 1 , [...] treatments are documented for this patient in Psychiatric. Treatments may have been administered in another system. Resolved Problems Problem Noted Date Diagnosed Date Resolved Date Mass of uterus determined by ultrasound 06/04/2024 08/11/2024 Language barrier 05/23/2024 08/11/2024
--- OUTSIDE RECORDS SUMMARY | 2024-08-22 09:50 | XMS_ITS | Clinical Summary ---
Author Organization [facility] Address [address] [place] [address] Care Team Providers Care Ballistics Expert Forensic Name Role Phone Shila Balderas PA-C Primary Care Provider [phone] Source Comments PLEASE NOTE, if this patient is a minor, it may be UNLAWFUL to discuss sensitive information that is contained in these records (such as FAMILY PLANNING, MENTAL HEALTH or SUBSTANCE ABUSE) with the minor patient's parent or other person without the patient's specific authorization.[facility] Allergies No known active allergies Medications No known medications Active Problems Problem Noted Date Diagnosed Date Diverticulitis on December 04, 2017 12/05/2017 Overview (12/05/2017): Result type: Discharge/Transfer Note Hospital Result date: December 04, 2017 14:22 EDT Result status: Modified Result title: Hospitalist Discharge Summary Performed by: Tino Owen MD on December 04, 2017 14:23 EDT Verified by: Tino Owen MD on December 04, 2017 14:32 EDT Encounter info: [id number], [facility] [place], [place], 12/02/2017 - 12/04/2017 Document Has Been Updated Hospitalist Discharge Summary Patient: JULIET KRUSE Age: 62 years Sex: Female : 1955 Associated Diagnoses: None Author: Tino Owen MD Discharge Information Admission Date: 12/02/2017 Discharge Date 12/04/2017 Primary Care Provider Shila Salvador Principal Discharge Diagnosis Pelvic abscess in female. Acute diverticulitis. Medications (Selected) Prescriptions Prescribed levofloxacin 750 mg oral tablet: 1 tablet = 750 mg, By Mouth, Every 24 hours, for 8 days, # 8 tablet, 0 Refills, Acute 12/12/17 14:14:34 EDT, 12/04/17 14:14:34 EDT, Tablet metroNIDAZOLE 500 mg oral tablet: 1 tablet = 500 mg, By Mouth, Every 8 hours, for 8 days, # 24 tablet, 0 Refills, Acute 12/12/17 14:15:47 EDT, 12/04/17 14:15:47 EDT, Tablet Documented Medications Documented aspirin 81 mg oral delayed release tablet: 81 mg, 1, tablet, By Mouth, Daily, Refills 0, Maintenance, 12/02/17 15:32:31 EDT. Medications Started metronidazole and levofloxacin Medications Discontinued none Doses Changed none PCP Follow-up/Heads Up please refer to the operating room specialist for colonoscopy in 6-8 weeks. she will also need MRI abdomen with hepatic protocol for further evaluation of the liver lesion. also for adrenal lesion. Hospital Course 62-year-old female who came in with 2 days complaint of bright red blood per rectum and found to have signs of diverticulitis and pelvic abscess. Complicated sigmoidal diverticulitis with abscess: Complicated due to the presence of 5.1-5.2 cm hemipelvic abscess at area of diverticulitis. First known episode. Afebrile, vitals stable. She is not immunocompromised. leucocytosis resolved Patient was started on IV metronidazole and levofloxacin. She received 2 days treatment. Her abdominal pain resolved. Leukocytosis resolved. No nausea vomiting. She is tolerating diet. Her abdomen is benign on exam. No tenderness no rebound tenderness. Corrective surgery was consulted who suggested to treat with IV antibiotics no need for drainage of the abscess because patient is clinically improving. I discussed with colorectal surgery Dr. Burt who discussed with her attending. Colorectal surgery suggested to discharge today with p.o. metronidazole and levofloxacin for total 10 days course of treatment. After current resolution of her diverticulitis, in 6-8 weeks of colonoscopy should be repeated. patient will follow up with PCP Hepatic lesions: Unclear cause/etiology, and ill-defined based on the imaging. She would need an MRI to characterize these better which should definitely be followed up outpatient. I discussed this finding with the patient as well as her Son. I send request to schedule outpatient testing via outpatient ancilliary testing. Patient will follow up with PCP Patient seen and examined at the bedside the day of discharge. She feels much better. No fever, no chills, no abdominal pain, no nausea, no vomiting, She is tolerating soft diet. Discussed with the patient as well as her son at the bedside details about discharge and follow-up plan. We will agreed. She will seek immediate medical attention if any fever, chills, abdominal pain, vomiting On physical examination General comfortable, not in acute distress. Vital signs: Temperature 98.4 (08:00) Systolic Blood Pressure 144 (09:05) Diastolic Blood Pressure 76 (09:05) Pulse 68 (08:00) SpO2 96 (08:00) Respiratory Rate 16 (08:00) Chest template clear, no crackles, no wheezing. CVS regular normal rate rhythm, normal S1-S2, no murmur. Abdomen; soft, nontender, bowel sounds present Extremities; no leg edema. CT Abdomen and Pelvis as below: IMPRESSION: 1. Acute sigmoid colon diverticulitis associated with a small left hemipelvic abscess measuring up to 5.2 cm. 2. Three indeterminate ill-defined hepatic lesions measuring up to 2.4 cm inferiorly, not consistent with simple cysts. Additional characterization with nonemergent hepatic mass MRI protocol is recommended to exclude neoplasm. 3. 1.3 cm nodular density in the region of left adrenal gland which may represent a gastric diverticulum, but adrenal nodule not excluded. This finding can also be evaluated at the time of MRI abdomen recommended above. 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 Follow Up with: Shila Balderas Within 3 to 5 days. Discharge Disposition Discharge: home. Discharge Condition: good, compared to admission improved. 35 minutes spent on discharge Report sent to all consultants: Marylu Lockwood MD Report sent to all consultants: Shila Salvador. Hepatic lesions on CT abd 11/201712/05/2017 Overview (12/05/2017): Result type: CT Abdomen and Pelvis W/ Contrast Result date: December 02, 2017 6:06 EDT Result status: Auth (Verified) Result title: CT Abdomen and Pelvis W/ Contrast Performed by: Renny Lynch MD on December 02, 2017 10:06 EDT Verified by: Niall Lara MD on December 02, 2017 10:11 EDT Encounter info: [id number], REESE, Garry IP, 12/02/2017 - 12/04/2017 * Final Report * Reason For Exam lower abdominal pain, diarrhea, loss of appeitte, rectal and vaginal bleeding;Other: RESULT: CT Abdomen and Pelvis W/ Contrast CT Abdomen and Pelvis W/ Contrast INDICATION/CLINICAL QUESTION: lower abdominal pain, diarrhea, loss of appetite, rectal and vaginal bleeding. History of endometriosis. TECHNIQUE: Spiral CT through the abdomen and pelvis with IV contrast formatted in 3 planes. The study was performed without oral contrast. Weight-based protocol using automatic tube modulation was used to optimize exposure parameters. CTDIvol Body: 7.70 mGy, DLP Body: 404 mGy*cm. COMPARISON: MRI pelvis 01/23/2009. FINDINGS: Visualized Chest: Lung bases are clear. No pleural effusion. The heart is normal in size. No pericardial effusion. Diaphragm: Unremarkable. Liver: Normal in size. Indeterminate, ill-defined low-density right inferior hepatic lobe lesion measures 2.3 x 1.4 x 2.4 cm. Additional indeterminate small low-attenuation, ill-defined lesion in the right superolateral hepatic lobe measuring 1.5 x 1.3 cm (image 25, series 201). Faint ill-defined focus within left hepatic lobe measuring 1.2 cm (image 24, series 201). Right medial hepatic lobe 1.1 cm cyst. Gallbladder: No CT evidence of gallbladder pathology. Bile ducts: No biliary ductal dilation. Spleen: Normal in attenuation. Upper limits of normal for size measuring 13.3 cm superior inferior dimension. Pancreas: Normal. Adrenal Glands: Peripherally enhancing centrally hypodense left adrenal nodule measuring 1.3 cm (image 58 series 202, image 33 series 201, image 73 series 203) may represent a small gastric diverticulum, but adrenal nodule not excluded. Kidneys and Ureters: No hydronephrosis or calculi. Small bilateral subcentimeter renal hypodensities, too small to characterize but likely represent cysts. No perinephric collection. No suspicious mass. No ureteral dilation. Bladder: Underdistended and partially compressed by the uterus posteriorly. Otherwise unremarkable. Stomach, Small bowel and Large Bowel: Stomach is underdistended. The small bowel is normal in caliber. Scattered colonic diverticula. Segmental sigmoid colon circumferential wall thickening with marked surrounding fat stranding. Loculated well-defined peripherally enhancing low-density fluid collection in the left hemipelvis posterior to the ovary, abutting colon, measuring 5.2 x 1.7 x 2.7 cm (TV x AP x SI) is consistent with an abscess. Possible small tiny extraluminal gas locule versus diverticula for example (image 105, series 201). Appendix: Normal. Peritoneum, omentum and mesentery: Trace fluid layers along the left paracolic gutter extending into the pelvis. Loculated collection in the left hemipelvis as above. No omental or mesenteric lesions. Lymph nodes: No enlarged lymph nodes. Blood Vessels: Mild vascular calcifications but no aneurysm. No evidence of venous thrombosis. Abdominal wall: Small fat-containing umbilical hernia. Mild lower anterior abdominal wall postsurgical scarring. Reproductive organs: Fibroid uterus has decreased in size and contains multiple calcifications. Bones: Mild lumbar spine dextroscoliosis. Multilevel degenerative changes of the spine most pronounced at L2-L3. Tarlov cyst right sacrum. IMPRESSION: 1. Acute sigmoid colon diverticulitis associated with a small left hemipelvic abscess measuring up to 5.2 cm. 2. Three indeterminate ill-defined hepatic lesions measuring up to 2.4 cm inferiorly, not consistent with simple cysts. Additional characterization with nonemergent hepatic mass MRI protocol is recommended to exclude neoplasm. 3. 1.3 cm nodular density in the region of left adrenal gland which may represent a gastric diverticulum, but adrenal nodule not excluded. This finding can also be evaluated at the time of MRI abdomen recommended above. I have personally reviewed the images and I agree with this report. WSN: [id number] Signature Line Dictated By: Renny Lynch MD Dictated Date/Time: 12/02/17 10:06 a Reviewed By: Niall Lara MD Signed By: Niall Lara MD Signed Date/Time: 12/02/17 10:11 am Transcribed By: WILIAN Transcribed Date/Time: 12/02/17 10:[address] Abdomen and Pelvis W/ Contrast This document has an image Social History Tobacco Use Types Packs/Day Years Used Date Smoking Tobacco: Never Alcohol Use Standard Drinks/Week Comments No 0 (1 standard drink = 0.6 oz pur e alcohol) Social Connections Answer Date Recorded Social Connections and Isolation 0 03/02/2019 Financial Resource Strain Answer Date R ecorded Financial Resource Strain 0 2018 Stress Answer Date Recorded Stress 0 03/02/2019 Physical Activity Answer Date Recorded Physical Activity 0 03/02/2019 Food Insecurity Answer Date Recorded Food 0 03/02/2019 Transportation Needs Answer Date Record ed Transportation 0 03/02/2019 Housing Stability Answer Date Recorded Housing 0 03/02/2019 Safety and Environment Answer Date Carlos rded Safety 0 03/02/2019 Utilities Answer Date Recorded Utilities 0 03/02/2019 Employment Answer Date Recorded Employment 0 03/02/2019 Comments No Sex and Gender Information Value Date Recorded Sex Assigned at Female 11/12/2017 6:52 PM PDT Legal Sex Female 11:36 AM PDT Gender Identity Female 11/12/2017 6:52 PM PDT Sexual Orientation Straight 11/12/2017 6: 52 PM PDT Last Filed Vital Signs Vital Sign Reading Time Taken Comments Blood Pressure 144/82 09/14/2018 8:38 AM EST Pulse 77 09/14/2018 8:38 AM EST Temperature 36.6 ??C (97.8 ??F) 09/14/2018 8:38 AM ES T Respiratory Rate 16 09/14/2018 8:38 AM EST Oxygen Saturation 97% 09/14/2018 8:38 AM EST Inhaled Oxygen Concentration - - Weight 75.8 kg (167 lb) 12/12/2017 9:42 AM EDT Height 167.6 cm (5' 6 ) 09/14/2018 8:38 AM EST Body Mass Index 26.95 08/19/2016 9:27 AM EST Plan of Treatment Not on file Insurance [facility] [employer] Member Subscriber Plan / Payer (Ef fective 2014-Present) Name:RicardolilianJuliet olivas Relation to Subscriber:Self Name:Juliet Kruse Payer ID:[id number] Type:Indemnity Address: [address] [address] Care Teams Ballistics Expert Forensic Relationship Specialty Start Date End Date Shila Balderas PA-C [address] [place] [address] PCP - General Internal Medicine 10/17/14
--- OUTSIDE RECORDS SUMMARY | 2024-08-22 09:50 | XMS_ITS | Continuity of Care Document ---
Author Organization [facility] Address [address] [place] [address] [address] [place] [address] Phone Care Team Providers Care Broadcast Producer Name Role Phone Joshua DIAZ FACS RVT [...] E&M Established 15 Mins [facility], [address] [place] [address] [address], [id number], [place] tel:[phone] [facility] Body mass index (BMI) 27.0-27.9, adultVenous insufficiency (chronic) (peripheral) 3 Joshua DIAZ FACS RVLien Rosas. [address] [address], [place], [address], [place]. [phone] Referring Provider: Nilam Piper MD S, [address] [place] [address], [place], [address]. 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 [address] [place] [address], [address], [place], [address], [place]. [phone] Referring Provider: Nilam Piper MD S, [address] [place] [address], [place], [address]. tel:[phone] [facility], [address] [place] [address] [address], [id number], [place] tel:[phone] CVR - MD - Hayes Encntr for f/u exam aft trtmt for cond oth than malig neoplmVaricose veins of right lower extremities with pain 3 Joshua DIAZ FACS Lien Rosas. [address] [place] [address], [address], [place], [address], [place]. [phone] Referring Provider: Nilam Piper MD S, [address] [place] [address], [place], [address]. 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 [address] [place] [address], [address], [place], [address], [place]. [phone] Referring Provider: Nilam Piper MD S, [address] [place] [address], [place], [address]. 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 [address] [facility], [address], [place], [address], [place]. tel:[phone] Referring Provider: Nilam Piper MD S, [address] [place], [address]. tel:[phone] Family History Family Member Type Diagnosis Age At Onset No Information Payers Payer name Insurance type Covered alliance party ID Jackson hyatt(s) [facility] Picket [facility] CI [id number] Social History Type Description Quantity Date Captured [...]
== END ==
LOC: HO.CARD 09:27
PROVIDERS: PCP Internal Medicine; Visit Provider Internal Medicine
DX: I20.89 Other forms of angina pectoris (principal)
CPT/HCPCS: 93017; J0280; J2785

== ENCOUNTER → 2024-08-22 09:33 | Outpatient (BNV) | payer OTHER, SELFPAY | PROVIDERS: PCP Internal Medicine | DX: R06.02 Shortness of breath (principal); I49.1 Atrial premature depolarization; I49.3 Ventricular premature depolarization | CPT/HCPCS: 78452; 93016; 93018 ==

== ENCOUNTER 2025-04-01 13:46 | Outpatient (REF) | payer OTHER, SELFPAY ==
[2025-04-01 16:39] LABS: MANUAL DIFF FLAG NO
[2025-04-01 16:42] LABS: Hematocrit 38.1 % (37.0-47.0); Hemoglobin 13.2 g/dl (12.0-16.0); Imm Gran Abs Auto 0.00 X10*3/uL (0.00-0.03); Imm Gran Pct Auto 0.0 % (0.0-0.4); Lymphocytes Absolute Auto 0.5 X10*3/uL (1.2-4.9); Mean Corpuscular HGB Conc 34.6 g/dl (31.0-35.0); Mean Corpuscular Hemoglobin 33.1 pg (27.0-33.0); Mean Corpuscular Volume 95.5 fL (80.0-98.0); NRBC Abs Auto 0.000 X10*3/uL (0.0-0.012); NRBC Pct Auto 0.0 /100WBC (0.0-0.2); Platelet Count 153 X10*3/uL (160-400); Red Blood Count 3.99 X10*6/uL (4.20-5.50); White Blood Count 2.9 X10*3/uL (4.8-10.8)
[2025-04-01 17:11] LABS: Alanine Aminotransferase 22 U/L (0-31); Albumin Level 4.3 g/dL (3.5-5.0); Alkaline Phosphatase 74 U/L (39-117); Anion Gap 8 (12-20); Aspartate Amino Transferase 25 U/L (5-31); Blood Urea Nitrogen 13 mg/dL (9-16); Calcium 9.2 mg/dL (8.4-10.2); Carbon Dioxide 29 mmol/L (22-29); Chloride 107 mmol/L (96-108); Cholesterol 225 mg/dL (<200); Estimated Glomerular Filt Rate > 60; HDL Cholesterol 67 mg/dL (>40); Potassium 4.1 mmol/L (3.3-5.1); Sodium 140 mmol/L (135-145); Total Protein 6.9 g/dL (6.5-8.0); Triglycerides 86 mg/dL (<150)
== END 2025-04-01 13:47 | disposition home or self-care (01) ==
LOC: HO.HMGCLDS 13:46
PROVIDERS: PCP Internal Medicine; Visit Provider Internal Medicine
DX: Z00.00 Encounter for general adult medical examination without abnormal findings (principal); E78.5 Hyperlipidemia, unspecified; I10 Essential (primary) hypertension; E55.9 Vitamin D deficiency, unspecified; C54.1 Malignant neoplasm of endometrium; Z79.899 Other long term (current) drug therapy; Z98.890 Other specified postprocedural states
CPT/HCPCS: 36415; 80053; 80061; 82306; 84443; 85025

== ENCOUNTER 2025-04-01 13:46 | Outpatient (AMB) | payer OTHER, SELFPAY ==
--- OUTSIDE RECORDS SUMMARY | 2025-04-01 08:53 | XMS_ITS | Encounter Summary ---
Author Organization [facility] [place] [address] Care Team Providers Care Branch Service Associate Name Role Phone Nilam Piper MD Primary Care Provider [phone] Encounter Details Date Type Department Care Team (Latest Contact Info) Description 04/01/2025 8:53 AM EDT Hospital Encounter [facility] [address] [facility] [address] [place] [phone] Endometrial cancer (CMS/HCC V24, CMS/HCC V28) [C54.1] (Primary Dx) Social History Tobacco Use Types [...] as of this encounter Progress Notes * Selma Whyte RN - 04/01/2025 9:00 AM EDT Pt arrived today for port flush. Port accessed without difficulty. Port flushed and deaccessed per protocol. Next appts made/provided. Pt left unit, stable at D/C. documented in this encounter Plan of Treatment Upcoming Encounters Date Type Department Care Team (Late st Contact Info) Description 04/15/2025 1:00 PM EDT Office Visit Urogynecology [facility] [address] [place] [address] Dee Dee Soriano MD [address] [facility] [address] [place] [address] 05/27/2025 9:30 AM EST Office Visit [facility] Hematology Oncology [address] [place] [phone] Desiree Sears, DO [address] [place] [address] 05/27/2025 10:00 AM EST Appointment [facility] [address] [place] [phone] 07/01/2025 8:20 AM EST Office Visit Breast Care [address] [phone] Roosevelt Ramirez MD [address] [place] [address] documented as of this encounter Visit Diagnoses Diagnosis Endometrial cancer (CMS/HCC V24, CMS/HCC V28) [C54.1]- Primary Malignant neoplasm of corpus uteri, except isthmus documented in this encounter Care Teams Branch Service Associate Relationship Specialty Start Date End Date Nilam Piper MD [address] [place] [address] PCP - General Internal Medicine 08/20/24 documented as of this encounter
--- OUTSIDE RECORDS SUMMARY | 2025-04-01 09:40 | XMS_ITS | Encounter Summary ---
Author Organization [facility] Address [address] [place] [address] Care Team Providers Care Hand Trimmer Name Role Phone Nilam Piper MD Primary Care Provider [phone] Reason for Visit * Reason Comments Follow-up 3 month follow up Encounter Details Date Type Department Care Team (Late st Contact Info) Description 04/01/2025 9:40 AM EDT Office Visit [facility] [address] [place] [address] Roosevelt Ramirez MD [address] [place] [address] Endometrial cancer ([facility]/HCC V24, CMS/HCC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) Social History Tobacco Use Types [...] Sign Reading Time Taken Comments Blood Pressure 162/81 04/01/2025 9:26 AM EDT Pulse 72 04/01/2025 9:26 AM EDT Temperature 36.5 C (97.7 F) 04/01/2025 9:26 AM EDT Respiratory Rate - - Oxygen Saturation - - Inhaled Oxygen Concentration - - Weight 76.7 kg (169 lb) 04/01/2025 9:26 AM EDT Height - - Body Mass Index 26.46 02/17/2025 2:11 PM EDT documented in this encounter Progress Notes * Roosevelt Ramirez MD - 04/01/2025 9:40 AM EDT Reason for visit: Follow-up - Endometrial cancer HPI: Ms. Kruse is a 69 y.o. patient who presents for endometrial cancer follow- up. She is accompanied by her son who assists the patient with Burmese language interpretation. 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 TREATMENT HISTORY: Total abdominal hysterectomy, left salpingo-oophorectomy on 07/16/2024. Serous carcinoma, measuring 8 cm in greatest dimension. 90% myometrial invasion and lower uterine segment and cervical stroma invasion. Focal lymphovascular invasion. ER positive, NJ positive, p53 abnormal, HER2/sujata 2+, FISH negative, MMR protein proficient. FIGO [...] follow-up CT in 6 months was recommended. Carboplatin (AUC6) and paclitaxel (175mg/m2) every 21 days x 6 cycles from 08/29/2024-12/12/2024. Pelvic radiation and vaginal brachytherapy from 01/14/2025-03/03/2025 (Dr. Jersey Lewis, [facility]). Genetic testing [employer] CancerNext-Expanded (76 genes): NEGATIVE. CURRENT THERAPY: Surveillance. Interval history: Juliet was last seen on 12/19/2024. She subsequently completed pelvic radiation and vaginal brachytherapy at [facility]. She tolerated this well overall. She experienced some diarrhea which was manageablewith imodium. Restaging CT C/A/P with contrast performed on 12/20/24 at [facility] showed stable findings. She has no abdominal or gynecologic complaints. She denies vaginal bleeding or discharge. She has no abdominal pain or bowel symptoms. She has a normal appetite, and denies early satiety, abdominal bloating, current diarrhea or constipation. She is considering a trip to [facility] to visit her family. PROBLEM LIST: Patient Active Problem List Diagnosis Endometrial cancer ([facility] V24, [facility] V28) ACTIVE MEDICATIONS: Medication list was reviewed/updated with the patient. Current Outpatient Medications on File Prior to Visit Medication Sig Dispense Refill amLODIPine (NORVASC) 5 mg tablet Take 1 tablet (5 mg total) by mouth 1 (one) time each day. MAGNESIUM GLYCINATE ORAL Take 120 mg by mouth 1 (one) time each day. Pt taking 4 tabs in the evening sertraline (ZOLOFT) 50 mg tablet Take 1 tablet (50 mg total) by mouth 1 (one) time each day. 90 each 1 No current facility-administered medications on file prior to visit. ALLERGIES: No Known Allergies PHYSICAL EXAM: Visit Vitals BP (!) 162/81 Pulse 72 Temp 36.5 ??C (97.7 ??F) (Temporal) Wt 76.7 kg (169 lb) BMI 26.46 kg/m?? Smoking Status Never BSA 1.88 m?? GENERAL: Awake, alert, and in no acute distress. HEAD: Normocephalic, atraumatic. EYES: Pupils equal and round. Anicteric sclera. Conjunctiva normal. ABDOMEN: Soft, non-tender, non-distended. Midline vertical incision scar well healed. No appreciable mass. No organomegaly. No ventral or umbilical hernia noted. EXTREMITIES: Warm, well-perfused. No lower extremity edema. BACK: Grossly normal range of motion. SKIN: Warm, no lesion or rash noted on visible skin. NEURO: Alert and oriented, appropriate. Motor and sensory grossly intact. GYNECOLOGIC: External genitalia within normal limits. Urethral meatus, urethra, and bladder are normal. Speculum exam reveals normal vaginal mucosa without lesion or discharge. Weakening of the vaginal wall noted with anterior vaginal prolapse to the introitus with straining. Bimanual exam with smooth vaginal apex. No adnexal masses appreciated. Uterus and cervix surgically absent. LABS: No recent labs. IMAGING: The following images were personally reviewed, including reports and associated films. Findings were discussed with the patient. 12/20/2024 ADDENDUM: RESULT: CT Chest W/ Contrast, CT Abd/Pelvis W/ IV + Oral Contrast Since the dictation, prior CT chest abdomen and pelvis from [facility] dated 06/20/2024 has become available. IN THE CHEST, The prior examination was technically superior for detection of small nodules due to absence of motion artifact and absence of hazy opacity on the current examination. The [facility] exam dated show a few 2-3 mm nodules. In retrospect these are either unchanged or are obscured by benign disease on the current exam. The stability suggests that the nodules are all benign in nature. IN THE ABDOMEN, The liver abnormalities described on the current report are all unchanged since the CT 06/20/2024. The report of that outside examination indicates that they were all either unchanged or smaller than on an MRI of 2018. There is no new liver abnormality on the current exam. IN THE PELVIS, The abnormal uterus and left adnexal low-density abnormality present on the prior examination have completely removed. WSN: [id number] Ordering Physician: Jersey Lewis Signature Line Dictated By: Rodrigo Hoover MD Dictated Date/Time: 12/26/24 5:15 pm RESULT: CT Chest W/ Contrast, CT Abd/Pelvis W/ IV + Oral Contrast INDICATION/CLINICAL QUESTION: The patient had total abdominal hysterectomy and left salpingo-oophorectomy 07/16/2024 with result of serous carcinoma of the uterus. The patient has had a prior right oopherectomy. The patient has had adjuvant chemotherapy and is to begin radiation therapy. COMPARISON: No prior CT chest. CT abdomen 12/02/2017.. TECHNIQUE: Helical contrast -enhanced CT of the chest, abdomen, and pelvis was performed from the lung apex to the ischial tuberosity. 100 cc of Isovue 300 was administered intravenously. Images were reconstructed in axial, coronal, and sagittal planes. Weight-based protocol using automatic tube modulation was used to optimize exposure parameters. RADIATION DOSE PARAMETERS: CTDIvol Body: 13.94 mGy, DLP Body: 956 mGy*cm. FINDINGS: DIESEL INSPECTOR VIEW FINDINGS, LINES AND TUBES: None. TRACHEA AND MAINSTEM BRONCHI: Patent without evidence of tracheal or endobronchial lesion. LUNGS AND PLEURA: Faint heterogeneous hazy opacity parts of the lower lungs bilaterally. No nodule, mass, consolidation. No effusion or pneumothorax. AORTA: No thoracic aortic aneurysm or dissection MEDIASTINUM AND ARTUR: The heart is of normal size. No pericardial effusion.. There is no mediastinal or hilar adenopathy.. There is no esophageal abnormality. BONES OF THE CHEST: There is no thoracic spine compression fracture. No fracture ribs or sternum. No bony metastasis.. DIAPHRAGM: Unremarkable. LIVER: There is a 10 mm cyst right lobe of liver image 77 series 2 unchanged 2. No significance. There are additional presumably solid small abnormalities as follows:. 9 mm abnormality right lobe beneath hemidiaphragm image 60 series 2. This previously measured 15 mm. 5 mm abnormality in the right lobe beneath the hemidiaphragm image 61. This is new. 4 mm abnormality in right lobe image 64. This is new. 6 mm low-density abnormality posteriorly right lobe image 70. This is new. 11 mm low-density abnormality peripherally in the right lobe image 85. This previously measured 23 mm. 13 mm partially enhancing mass image 105. This is new. PORTAL VENOUS SYSTEM: No thrombosis involving the portal, splenic or superior mesenteric veins. GALLBLADDER: Distended. Otherwise normal. No calcified stones.. BILE DUCTS: No biliary dilatation. SPLEEN: Normal size. No focal abnormality. PANCREAS: Normal. ADRENAL GLANDS: Normal. KIDNEYS AND URETERS: Normal size. No mass or kidney stone. 20 mm of kidney cyst. Minimal symmetrical hydronephrosis without ureteral stone or mass. BLADDER: Normal. STOMACH, SMALL BOWEL AND LARGE BOWEL: Stomach: Normal. Small Bowel: No small bowel dilatation or gross inflammatory change Large Bowel: No large bowel dilatation or gross inflammatory change. APPENDIX: Normal. REPRODUCTIVE/PELVIC ORGANS: No pelvic mass or fluid collection. PERITONEUM, RETROPERITONEUM, OMENTUM AND MESENTERY: There is no free air. . There is no ascites. LYMPH NODES: No enlarged lymph nodes AORTA AND ILIAC VESSELS: No evidence of abdominal aortic or iliac artery aneurysm ABDOMINAL WALL: No abdominal wall hernia BONES OF THE ABDOMEN AND PELVIS: There is no compression fracture. There is no spondylolysis or spondylolisthesis. No fracture or bony pelvis or proximal femurs. Right-sided Tarlov cyst. IMPRESSION: CHEST 1. Minimal nonspecific hazy disease in parts of lower lungs bilaterally.. 2. Examination otherwise normal including no soft tissue metastasis or pleural fluid. 3. No bony abnormality. ABDOMEN AND PELVIS 1. There are several small presumably solid masses within the liver. Some are new since prior examination. 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 Further assessment recommended by abdominal MRI with contrast. 2. Otherwise, there is no evidence of metastasis, adenopathy, or ascites. 3. There is minimal bilateral hydronephrosis without visible obstructing mass or stone. WSN: [id number] Ordering Physician: Jersey Lewis Signature Line Dictated By: Rodrigo Hoover MD Dictated Date/Time: 12/25/24 1:32 pm ASSESSMENT & PLAN: 1. Endometrial cancer (CMS/HCC V24, CMS/HCC V28) Juliet has completed her primary therapy for endometrial cancer. Exam today is without evidence of disease. We reviewed her survivorship plan which will include surveillance follow-up visits every 3 months for the 2 years, and then every 6 month to 5 years, then yearly. We reviewed symptoms that would prompt her to contact her office for sooner evaluation. Follow-up visit was made for her in 3 months. ENDOMETRIAL CANCER SURVEILLANCE GUIDELINES (Adopted from [employer], Surveillance for gynecologic cancer, [place] Journal of obstetrics and gynecology 2011) High Risk (stage III-IV, serous or clear cell) Review of symptoms and physical exam: Every 3 months until 2 years, and then every 6 months to 5 years, then yearly. Patient may be followed by food stylist or gynecologic oncologist beginning at 5 years. PAP test: Not indicated. CA125: Insufficient data to support routine use. Radiographic imaging (chest x-ray, CT, PET, MRI): Insufficient data to support routine use. Recurrent suspected: CT and/or PET + CA125 I spent a total of 30 minutes on the date of the service, in seeing the patient and performing the following activities: Preparing to see the patient (e.g. reviewing tests), Obtaining and/or reviewing separately obtained history, Performing a medically appropriate examination and/or evaluation, Counseling and educating the patient, family or caregiver, Ordering medications, tests, or procedures and Documenting clinical information in the electronic health record. Note was prepared using the assistance of [employer] for [employer]. I have obtained verbal consent fromJuliet Kruse prior to the recording. I advised Juliet Kruse that she may refuse the recordingand require the recording to be turned off at any time during this encounter. It was a pleasure seeing Ms. Juliet Kruse at the [facility] today. The patient has been instructed to call with any additional questions or concerns. Roosevelt Ramirez MD [facility] [address] [address] CC: MD Desiree Qureshi MD Joanna S Cichon, MD documented in this encounter Plan of Treatment Upcoming Encounters Date Type Department Care Team (Late st Contact Info) Description 04/15/2025 1:00 PM EDT Office Visit Urogynecology [address] [phone] Dee Dee Soriano MD [address] [place] [address] [address] [place] [address] 05/27/2025 9:30 AM EST Office Visit [facility] [address] [place] [phone] Desiree Sears DO [address] [place] [phone] 05/27/2025 10:00 AM EST Appointment [facility] [address] [place] [phone] 07/01/2025 8:20 AM EST Office Visit [facility] [address] [phone] Roosevelt Ramirez MD [address] [place] [phone] documented as of this encounter Visit Diagnoses Diagnosis Endometrial cancer (CMS/HCC V24, CMS/HCC V28)- Primary Malignant neoplasm of corpus uteri, except isthmus documented in this encounter Care Teams Hand Trimmer Relationship Specialty Start Date End Date Nilam Piper MD [address] [place] [phone] PCP - General Internal Medicine 08/20/24 documented as of this encounter
[2025-04-01 13:48] VITALS: BP 128/80; PULSE 77; RESP 19; TEMP 36.7; O2SAT 95; BMI 28.3
--- NOTE | 2025-04-01 13:48 | MHC.PC.OV ---
Vital Signs 04/01/25 13:48 Height 5 ft 5 in Weight 170 lb BMI 28.3 BP 128/80 Blood Pressure Location Rt brachial Position Sitting Respiration 19 Pulse 77 Pulse Source Pulse Oximeter Temp 98.1 F Temp Source Oral Pulse Oximetry (%) 95 Oxygen Delivery Method Room Air Intake Visit Reasons: PE Intake Note: Pt is here today for PE. Allergies No Known Allergies Allergy (Verified 04/01/25 13:49) Medication List - Last Reconciled 04/01/25 by Nilam Piper MD amlodipine 5 mg PO DAILY compr.stocking,knee,long,small As directed naproxen 500 mg PO BID sertraline 25 mg PO DAILY Xofluza (baloxavir marboxil) 40 mg PO ONCE NS Tobacco use date assessed: 04/01/25 Fall risk assessment: No Falls in past year Last assessed Fall Risk: 04/01/25 Dental Screening Dental Screen Date: 07/15/24 HPI PE HPI Details Patient presents for a physical. She underwent total abdominal hysterectomy and left salpingo-oophorectomy for endometrial cancer in July 2024. She completed course of chemo and radiation at [place], finished in December. Patient tolerated treatment well. She has been taking amlodipine for hypertension [facility] Medical History (Updated 04/01/25 @ 15:26 by Nilma Piper MD) Endometrial cancer Venous insufficiency Annual physical exam Trochanteric bursitis Mammogram declined HTN (hypertension) Vitamin D deficiency Hyperlipidemia Surgical History (Updated 04/01/25 @ 15:22 by Nilam Piper MD) History of removal of cyst (04/14/22) History of left oophorectomy H/O colonoscopy Family History Mother Stroke Father Hypertension Social History Housing: House Alcohol intake: never Patient Tobacco Use Status: Never used Tobacco e-Cigarette/Vaping Use: Never Used Second Hand Smoke Exposure: No service: No Current occupational status: employed 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 1. Little interest or pleasure in doing things: not at all 2. Feeling down, depressed, or hopeless: not at all 3. Trouble falling or staying asleep, or sleeping too much: not at all 4. Feeling tired or having little energy: not at all 5. Poor appetite or overeating: not at all 6. Feeling bad about yourself - or that you are a failure or have let yourself or your family down: not at all 7. Trouble concentrating on things, such as reading the newspaper or watching television: not at all 8. Moving or speaking so slowly that other people could have noticed. Or the opposite - being so fidgety or restless that you have been moving around a lot more than usual: not at all 9. Thoughts that you would be better off or of hurting yourself in some way: not at all Total score: 0 Depression Screening Interpretation: Negative Depression Screening Done: Yes Source: Developed by Drs. Adryan Rendon, Phyllis Jade, Naveen Diane and colleagues, with an educational sandy from [employer]. Thrive Questionnaire Date Thrive assessed: 07/15/24 I am a: Patient What is your living situation today?: I have a steady place to live Within the past 12 months, did the food you bought not last and you didn't have the money to get more?: I choose not to answer this question Within the past 12 months, did you worry whether your food would run out before you got money to buy more?: I choose not to answer this question Do you have trouble paying for medicines?: I choose not to answer this question Do you have trouble getting transportation to medical appointments?: I choose not to answer this question Do you have trouble paying your heating and electricity bill?: I choose not to answer this question Do you have trouble taking care of your child, family member or friend?: I choose not to answer this question Do you have trouble with day-to-day activities such as bathing, preparing meals, shopping, managing finances, etc.?: I choose not to answer this question Are you currently unemployed and looking for a job?: I choose not to answer this question Are you interested in more education?: I choose not to answer this question Please select the resources that you would like help with: None Currently or been in a relationship where the following occur: I choose not to answer THRIVE Score: 0 AUDIT C Alcohol Use Questionnaire (AUDIT-C) 2. How many drinks containing alcohol do you have on a typical day when you are drinking?: 1 or 2 3. How often do you have six or more drinks on one occasion?: Never Total Score: 0 SUYAPA-7 AMB Questionnaire SUYAPA-7 Date SUYAPA - 7 assessed: 07/15/24 Feeling nervous, anxious, or on edge: 0 = Not at all Not being able to stop or control worryin = Not at all Worrying too much about different things: 0 = Not at all Trouble relaxin = Not at all Being so restless that it is hard to sit still: 0 = Not at all Becoming easily annoyed or irritable: 0 = Not at all Feeling afraid as if something awful might happen: 0 = Not at all Total SUYAPA-7 score (0-4 normal; 5-9 mild; 10-14 moderate; 15-21 severe): 0 Source: Developed by Drs. Adryan Rendon, Phyllis Jade, Naveen Diane and colleagues, with an educational sandy from [employer]. Review of Systems Const All systems reviewed & are unremarkable except as noted in HPI and below Eyes Reports no additional complaints ENT Reports no additional complaints Card Reports no additional complaints Resp Reports no additional complaints GI Reports no additional complaints Reports no additional complaints Physical exam (Primary Care) Vital Signs: Last Vital Signs Temp 98.1 F 04/01/25 13:48 Pulse 77 04/01/25 13:48 Resp 19 04/01/25 13:48 BP 128/80 04/01/25 13:48 Pulse Ox 95 04/01/25 13:48 Oxygen Delivery Method Room Air 04/01/25 13:48 BMI result Body Mass Index 28.3 Tobacco/Smoking Status: Tobacco use Status Tobacco use date assessed 04/01/25 04/01/25 13:54 Patient Tobacco Use Status Never used Tobacco 04/01/25 13:54 e-Cigarette/Vaping Use Never Used 04/01/25 13:54 PHQ-9: PHQ-9 Score PHQ-9: Total score 0 04/01/25 13:54 Depression Screening Interpretation: Negative Thrive Assessment: Date of Thrive Assessment Date Thrive assessed 07/15/24 04/01/25 13:54 Currently or been in a relationship where the following occur: I choose not to answer Const General: no acute distress HENMT Head: Yes normal to inspection Eyes General: appearance normal, both eyes and all related structures Neck Neck: Yes supple Resp Effort & Inspection: normal respiratory effort Auscultation: clear to auscultation bilaterally Cardio Rhythm: regular rhythm Heart sounds: S1 normal heart sound present and S2 normal heart sound present GI Inspection: Yes normal to inspection Palpation (GI): Soft to palpation Percussion: Yes normal to percussion Auscultation: normal bowel sounds Coding Level of Care Code Est Pt Prev Care >65y(97358) Diagnoses Hyperlipidemia E78.5 Vitamin D deficiency E55.9 H/O colonoscopy Z98.890 Annual physical exam Z00.00 Endometrial cancer C54.1 Assessment & Plan Assessment & Plan (1) Hyperlipidemia: Comment: PATIENT REFUSED TO TAKE MEDICATIONS Code(s): E78.5 - Hyperlipidemia, unspecified Category: Medical Plan: Continue low-cholesterol diet patient will return for fasting blood work (2) Vitamin D deficiency: Code(s): E55.9 - Vitamin D deficiency, unspecified Category: Medical Plan: Continue vitamin D (3) H/O colonoscopy: Comment: 2018 negative at [facility] ? Code(s): Z98.890 - Other specified postprocedural states Category: Surgical Plan: Check Cologuard (4) Annual physical exam: Code(s): Z00.00 - Encounter for general adult medical examination without abnormal findings Category: Medical Plan: Well-balanced diet regular physical activity discussed with the patient, she declined mammogram (5) Endometrial cancer: Comment: s/p hysterectomy and left salpingo-oophorectomy, 8 cm serous endometrial CA 07/2024, treated with chemo and radiation at [facility] Code(s): C54.1 - Malignant neoplasm of endometrium Category: Medical Plan: Follow-up with oncology at [facility] Orders: Orders Lipid Panel Today E55.9 - Vitamin D deficiency, unspecified, E78.5 - Hyperlipidemia, unspecified Comprehensive Berkley. Panel Fast 1 Year E55.9 - Vitamin D deficiency, unspecified, E78.5 - Hyperlipidemia, unspecified, I10 - Essential (primary) hypertension, Z00.00 - Encounter for general adult medical examination without abnormal findings Vitamin D 25-OH Total Today E55.9 - Vitamin D deficiency, unspecified, E78.5 - Hyperlipidemia, unspecified Complete Blood Count Auto Diff 1 Year E55.9 - Vitamin D deficiency, unspecified, E78.5 - Hyperlipidemia, unspecified, I10 - Essential (primary) hypertension, Z00.00 - Encounter for general adult medical examination without abnormal findings Lipid Panel 1 Year E55.9 - Vitamin D deficiency, unspecified, E78.5 - Hyperlipidemia, unspecified, I10 - Essential (primary) hypertension, Z00.00 - Encounter for general adult medical examination without abnormal findings TSH reflex Free T4 1 Year E55.9 - Vitamin D deficiency, unspecified, E78.5 - Hyperlipidemia, unspecified, I10 - Essential (primary) hypertension, Z00.00 - Encounter for general adult medical examination without abnormal findings Vitamin D 25-OH Total 1 Year E55.9 - Vitamin D deficiency, unspecified, E78.5 - Hyperlipidemia, unspecified, I10 - Essential (primary) hypertension, Z00.00 - Encounter for general adult medical examination without abnormal findings Referrals Cologuard Test E55.9 - Vitamin D deficiency, unspecified, E78.5 - Hyperlipidemia, unspecified, Z12.11 - Encounter for screening for malignant neoplasm of colon, Z12.12 - Encounter for screening for malignant neoplasm of rectum
--- OUTSIDE RECORDS SUMMARY | 2025-04-01 16:55 | XMS_ITS | Clinical Summary ---
Author Organization [facility] Address [address] [place] [address] Care Team Providers Care Release And Technical Records Clerk Name Role Phone Shila Balderas PA-C Primary Care Provider [phone] Source Comments PLEASE NOTE, if this patient [...] December 04, 2017 14:32 EDT Encounter info: [id number], [facility], [place]ch IP, 12/02/2017 - 12/04/2017 Document Has [...] PCP Follow-up/Heads Up please refer to the marketing services specialist for colonoscopy in 6-8 weeks. she [...] December 02, 2017 10:11 EDT Encounter info: [id number], [facility], Garry IP, 12/02/2017 - 12/04/2017 * [...] and I agree with this report. WSN: [id number] Signature Line Dictated By: Renny Lynch MD [...] 77 09/14/2018 8:38 AM EST Temperature 36.6 C (97.8 F) 09/14/2018 8:38 AM EST Respiratory Rate 16 09/14/2018 8:38 AM EST Oxygen Saturation 97% 09/14/2018 8:38 AM EST Inhaled Oxygen Concentration - - Weight 75.8 kg (167 lb) 12/12/2017 9:42 AM EDT Height 167.6 cm (5' 6 ) 09/14/2018 8:38 AM EST Body Mass Index 26.95 08/19/2016 9:27 AM EST Plan of Treatment Not on file Insurance [facility] Care Teams Release And Technical Records Clerk Relationship Specialty Start Date End Date Shila Balderas PA-C [address] [place] [address] PCP - General Internal Medicine 10/17/14
--- OUTSIDE RECORDS SUMMARY | 2025-04-01 16:55 | XMS_ITS | Clinical Summary ---
Author Organization [facility] Address [address] [place] [id number] Phone Care Team Providers Care Toaster Operator Name Role Phone Nilam Piper MD Primary Care Provider Social History Tobacco Use Types Packs/Day Years Used Date Smoking Tobacco: Never Assessed Education Answer Date Recorded Are you interested in more education? Not on gibson e 07/26/2024 Are you concerned about learning? Not on file 07/26/2024 No 07/26/2024 No 07/26/2024 Digital Access Answer Date Recorded No 07/26/2024 No 07/26/2024 Reliable internet access at home? Not on file 07/26/2024 Device with a working camera? Not on file Comments Unknown Sex and Gender Information Value Date Recorded Sex Assigned at Not on file Legal Sex Female 12:42 PM EST Gender Identity Not on file Sexual Orientation Not on file Last Filed Vital Signs Vital Sign Reading Time Taken Comments Blood Pressure 173/95 08/06/2024 9:08 AM EST Pulse 96 08/06/2024 9:08 AM EST Temperature 37.1 C (98.8 F) 08/06/2024 9:08 AM EST Respiratory Rate 16 08/06/2024 9:08 AM EST Oxygen Saturation 97% 08/06/2024 9:08 AM EST Inhaled Oxygen Concentration - - Weight 76.2 kg (168 lb) 08/06/2024 9:08 AM EST Height 164 cm (5' 4.57 ) 08/06/2024 9:08 AM EST Body Mass Index 28.33 08/06/2024 9:08 AM EST Plan of Treatment Health Maintenance Due Date Last Done Comments Adult Td,Tdap Booster 1955 DEPRESSION SCREENING 1968 SMOKING Hx and SMOKELESS TOBACCO SCREENING 1969 HEPATITIS C SCREENING 1974 PNEUMOCOCCAL VACCINES (50+ years) (1 of 2 - PCV) 10/23/1975 ZOSTER VACCINES (1 of 2) 10/23/1975 SCREENING FOR DIABETES 10/23/1991 MAMMOGRAM 1996 COLOGUARD 2001 COLONOSCOPY 2001 COLORECTAL CANCER SCREENING 2001 FIT TEST 2001 FOBT 2001 SIGMOIDOSCOPY 2001 VIRTUAL COLONOSCOPY 2001 OSTEOPOROSIS SCREENING INITI AL (ONE-TIME) 2021 LIPID PANEL 09/15/2023 09/14/2018 INFLUENZA VACCINE (#1) 2025 COVID-19 VACCINE ( - 2024-2 6 season) 2025 07/21/2021, 11/23/2020, 11/02/2020 RSV VACCINE (1 - 1-dose 75+ series) 10/23/2031 HEPATITIS A VACCINES Aged Out No long er eligible based on patient's age to complete this topic HIB VACCINES Aged Out No longer eligi ble based on patient's age to complete this topic MENINGOCOCCAL VACCINES (ACWY) Aged Out No longer eligible based on patient's age to complete this topic MENINGOCOCCAL VACCINES (B) Aged Out N o longer eligible based on patient's age to complete this topic Medical Devices Not on file Insurance [address] [place], [place] [id number] POS EPO MEDICARE A [facility] POS EPO MEDICARE A [facility] POS EPO MEDICARE A [facility] POS EPO MEDICARE A [address] [place], [place] [id number] POS EPO MEDICARE A [facility] POS EPO MEDICARE A Care Teams Toaster Operator Relationship Specialty Start Date End Date Nilam Piper MD [address] [facility] [address] [place] [address] PCP - General Internal Medicine 07/26/24 Additional Source Comments The information contained in this document represents components of the legal health record. It is not the complete legal health record.[facility]
--- OUTSIDE RECORDS SUMMARY | 2025-04-01 16:55 | XMS_ITS ---
Author Organization [facility] Address [address] [place] [address] Phone Care Team Providers Care Program Coordinator Name Role Phone Nilam Piper MD Primary Care Provider [phone] Active Problems Problem Noted Date Diagnosed Date Endometrial cancer ([facility] V24, [facility] V28) Cancer Staging:Pathologic:FIGO Stage IIC, calculated as Stage Unknown(pT2, pNX, cM0) - Unsigned Current Oncology Plans PACLitaxel / CARBOplatin - Uterine Cancer* Plan Start Date:08/18/2024 Plan Provider:Desiree Sears, Linked Problems Endometrial cancer ([facility] V24, [facility] V28) Treatment Medications CARBOplatin (PARAPLATIN) cesar mo 250 mL IVPB (by AUC)PACLitaxel (TAXOL) chemo IVPB NS 500 mL (3 hours) Past Plans No past plan information found. Radiation Treatments * No radiation treatments are documented for this patient in [facility]. Treatments may have been administered in another system. Lifetime Dose Tracking * Chemical Lifetime Dose Automatic Entry Manual Entr y Fluoro Time 0.8 minutes 0.8 minutes 0 minutes Air Kerma 3 mGy 3 mGy 0 mGy Resolved Problems Problem Noted Date Diagnosed Date Resolved Date Mass of uterus determined by ultrasound 06/04/2024 08/11/2024 PMB (postmenopausal bleeding) 05/23/2024 09/30/2024 Pelvic mass 05/23/2024 09/30/2024 Language barrier 05/23/2024 08/11/2024
--- OUTSIDE RECORDS SUMMARY | 2025-04-01 16:55 | XMS_ITS | Clinical Summary ---
Author Organization [facility] Address [address] [place] [address] Phone Care Team Providers Care Table Filler Name Role Phone Nilam Piper MD Primary Care Provider [phone] Allergies No known active allergies Medications amLODIPine (NORVASC) 5 mg tablet Take 1 tablet (5 mg total) by mouth 1 (one) time each day. 06/17/2024 Active MAGNESIUM GLYCINATE ORAL Take 120 mg by mouth 1 (one) time each day. Pt taking 4 tabs in the evening Active sertraline (ZOLOFT) 50 mg tabletIndicatio ns:Anxiety and depression Take 1 tablet (50 mg total) by mouth 1 (one) time each day. 90 each 1 12/19/2024 Active Active Problems Problem Noted Date Diagnosed Date Endometrial cancer (CMS/HCC V24, CMS/HCC V28) Cancer Staging:Pathologic:FIGO Stage IIC, calculated as Stage Unknown(pT2, pNX, cM0) - Unsigned Resolved Problems Problem Noted Date Diagnosed Date Resolved Date Mass of uterus determined by ultrasound 06/04/2024 08/11/2024 PMB (postmenopausal bleeding) 05/23/2024 09/30/2024 Pelvic mass 05/23/2024 09/30/2024 Language barrier 05/23/2024 08/11/2024 Encounters Date Type Department Care Team Description 04/01/2025 9:40 AM EDT Office Visit [address] [address] Roosevelt Ramirez MD Endometrial cancer ([facility] V24, [facility]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) 04/01/2025 8:53 AM EDT Hospital Encounter [address] [address] Endometrial cancer ([facility] V24, [facility] V28) [C54.1] (Primary Dx) 02/17/2025 2:30 PM EDT - 02/17/2025 11:59 PM EDT Hospital Encounter [address] [address] Desiree Sears DO Endometrial cancer ([facility] V24, [facility]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) Discharge Disposition: Home or Self Care 02/17/2025 2:00 PM EDT Office Visit [facility] Hematology Oncology [address] [place] [phone] Desiree Sears DO 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, [facility]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) from Last 3 Months Surgical History Surgery [...] F) 04/01/2025 9:26 AM EDT Respiratory Rate 18 12/12/2024 8:37 AM EDT Oxygen Saturation 96% 02/17/2025 2:11 PM EDT Inhaled Oxygen Concentration - - Weight 76.7 kg (169 lb) 04/01/2025 9:26 AM EDT Height 170.2 cm (5' 7.01 ) 02/17/2025 2:11 PM ED T Body Mass Index 26.46 02/17/2025 2:11 PM EDT Plan of Treatment Upcoming Encounters Date Type Department Care Team (Late st Contact Info) Description 04/15/2025 1:00 PM EDT Office Visit Urogynecology [address] [phone] Dee Dee Soriano MD [address] [facility] [address] [place] [address] 05/27/2025 9:30 AM EST Office Visit [facility] Hematology Oncology [address] [place] [phone] Desiree Sears, [address] [place] [phone] 05/27/2025 10:00 AM EST Appointment [facility] Infusion Center [address] [place] [phone] 07/01/2025 8:20 AM EST Office Visit Breast Care [address] [address] Roosevelt Ramirez MD [address] [place] [address] Health Maintenance Due Date Last Done Comments Breast Cancer Screening 1955 DTaP,Tdap,and Td Vaccines (1 - Tdap) 10/23/1975 Hepatitis A Vaccines (1 of 2 - Risk 2-dose series) 10/23/1975 Zoster Vaccines (1 of 2) 10/23/1975 Pneumococcal Vaccine: 50+ Years (1 of 1 - PCV) 2006 Hepatitis B Vaccines (1 of 3 - Risk 3-dose series) 2016 RSV Immunization Adult Patients (1 - Risk 60-74 years 1-dose series) 2016 Colorectal Cancer Screening: Colonoscopy 06/13/2022 Hepatitis C Screening 06/13/2022 Osteoporosis Screening (Bone Density Screening) 06/13/2022 Social Influencers of Health Screening 06/13/2022 Cholesterol Screening (Lipid Panel) 09/15/2023 09/14/2018, 09/14/2018, 11/10/2017 Depression Screening 07/10/2024 COVID-19 Vaccine ( season) 2025 07/21/2021, 11/23/2020, 11/02/2020 Influenza Vaccine (#1) 2025 Hypertension/CHF/CAD Annual BMP Blood Test 12/11/2025 12/11/2024, 11/20/2024, 10/30/2024, Additional history exists Falls Risk Assessment 12/12/2025 12/12/2024 HIB Vaccines Aged Out No longer eligi [...] age to complete this topic Meningococcal B Vaccine Aged Out No l onger eligible based on patient's age to complete this topic RSV Immunization Patients Under 20 months Aged Out No longer eligible based on patient's age to complete this topic Varicella Vaccines Aged Out No longer eligible based on patient's age to complete this topic Medical Devices Implanted Type Area Golf Caddy Device Identifier Shelf Expiration Date Model / Serial / Lot Port Pwr Isp Attach 6f Interm Kathy - [id number] - [id number] Implanted:Qty: 1 on 08/23/2024 at [facility]/Lise pheral Catheters and Ports Right: Chest Wall CR BARD PERIPHERAL VASCULAR [id number] 05/09/2025 [id number] / [id number] / [id number] Procedures Procedure Name Priority Date/Time Associated Diagnosis Comments COMPREHENSIVE METABOLIC PANEL Routine 12/11/2024 8:41 AM EDT Endometrial cancer (CMS/HCC V24, CMS/HCC V28) from Last 3 Months or Most Recently Relevant to Health Maintenance Results * Comprehensive metabolic panel (12/11/2024 8:41 AM EDT) Sodium 138 133 - 145 mmol/L LAB CHEMISTRY METHOD 12/11/2024 9:46 AM [facility] Potassium 4.1 3.5 - 5.5 mmol/L LAB CHEMISTRY METHOD 12/11/2024 9:46 AM [facility] Chloride 106 96 - 110 mmol/L LAB CHEMISTRY METHOD 12/11/2024 9:46 AM [facility] CO2 29 21 - 32 mmol/L LAB CHEMISTRY METHOD 12/11/2024 9:46 AM [facility] Anion Gap 3 3 - 11 LAB CHEMISTRY METHOD 12/11/2024 9:46 AM [facility] Glucose 93 70 - 100 mg/dL LAB CHEMISTRY METHOD 12/11/2024 9:46 AM [facility] BUN 11 5 - 25 mg/dL LAB CHEMISTRY METHOD 12/11/2024 9:46 AM [facility] Creatinine 0.61 0.50 - 1.10 mg/dL LAB CHEMISTRY METHOD 12/11/2024 9:46 AM [facility] eGFR 98 >=60 mL/min/1. 73m2 LAB CHEMISTRY METHOD 12/11/2024 9:46 AM [facility] Comment:Calculation based on the Chronic Kidney Disease Epidemiology Collaboration (CKD-EPI) equation refit without adjustment for race. BUN/Creatinine Ratio 18.0 LAB CHEMISTRY METHOD 12/11/2024 9:46 AM [facility] Calcium 9.2 8.5 - 10.5 mg/dL LAB CHEMISTRY METHOD 12/11/2024 9:46 AM [facility] AST (SGOT) 12 10 - 42 unit/L LAB CHEMISTRY METHOD 12/11/2024 9:46 AM [facility] ALT (SGPT) 24 10 - 60 unit/L LAB CHEMISTRY METHOD 12/11/2024 9:46 AM [facility] Alkaline Phosphatase 87 42 - 121 unit/L LAB CHEMISTRY METHOD 12/11/2024 9:46 AM [facility] Total Protein 7.0 6.0 - 8.0 g/dL LAB CHEMISTRY METHOD 12/11/2024 9:46 AM [facility] Albumin 3.8 3.2 - 5.0 g/dL LAB CHEMISTRY METHOD 12/11/2024 9:46 AM [facility] Total Bilirubin 0.5 0.0 - 1.4 mg/dL LAB CHEMISTRY METHOD 12/11/2024 9:46 AM [facility] Blood Blood sample taken from central line / Unknown Existing Catheter / Unknown 12/11/2024 8:41 AM EDT 12/11/2024 9:16 AM EDT us Desiree Sears DO LAB BLOOD ORDERABLES Final Result [facility] [address] [place] [address], from Last 3 Months or Most Recently Relevant to Health Maintenance Insurance [facility] MEDICARE Advance Directives * Full Code [...] currently active code status orders. Care Teams Table Filler Relationship Specialty Start Date End Date Nilam Piper MD [address] [place] [address] PCP - General Internal Medicine 08/20/24
== END 2025-04-01 15:25 | disposition home or self-care (01) ==
LOC: HO.HMCC 13:46
PROVIDERS: PCP Internal Medicine; Visit Provider Internal Medicine
DX: Z00.00 Encounter for general adult medical examination without abnormal findings (principal); C54.1 Malignant neoplasm of endometrium; E78.5 Hyperlipidemia, unspecified; E55.9 Vitamin D deficiency, unspecified; Z98.890 Other specified postprocedural states